=== PATIENT | female | born 1955 | race Caucasian/White ===

== ENCOUNTER 2016-11-10 15:38 | Inpatient (IN) ==
[2016-11-10] MEDS ORDERED: methylPREDNISolone 125 MG/2 ML VIAL IVP ONE (17:52)
[2016-11-10] MEDS ORDERED: *HR* Morphine 2 MG/ML SYRINGE IVP ONE (18:09)
[2016-11-10] MEDS ORDERED: Ondansetron 4 MG/2 ML VIAL IVP ONE (18:09)
--- NOTE | 2016-11-10 18:09 | Emergency Department Note ---
Disposition Clinical Impression: Vasculitis, JONATHAN (acute kidney injury) Abdominal pain Qualifiers: Abdominal location: generalized Qualified Code(s): R10.84 - Generalized abdominal pain Disposition: Still a Patient Condition: Fair Referrals: Brie Ricks DO [Primary Care Provider] - Forms: Work/School Release, ED Satisfaction Letter General Adult HPI - General Chief complaint: ED Abdominal Pain Stated complaint: JONATHAN, vasculitis, "uncontrolled pain" Time Seen by Provider: 11/10/16 17:50 Source: patient Mode of arrival: ambulatory Limitations: no limitations Nursing Notes Reviewed: Yes Vital Signs Reviewed: Yes - History of Present Illness HPI Narrative: 61-year-old female with history of hypertension diabetes presents for evaluation for abdominal pain and, "vasculitis". Patient presented with vasculitic lesions on her lower legs. States it has been present since last . Notes that symptoms have improved since then while being on daily prednisone 20 mg. Patient had a biopsy-proven vasculitis and was following up with Dr. Freeman, nephrology. Patient also had a complaint of abdominal pain over the past week. Notes it to be diffuse primarily in the epigastrium with radiation around to her back. No aggravating or alleviating factors identified. Notes some nausea but no episodes of emesis. No hemoptysis. No shortness of breath or chest pain. No diarrhea or constipation. Patient was sent to the emergency department by Dr. Freeman with strict instructions. Those instructions were relayed to the physician with direct communication. Patient denies history of any autoimmune diseases. No history of vasculitis in the past. She also noted swelling in bilateral arms and lower legs. She states that she still produces urine with no difficulty. Pain Scale: 10 - Related Data Allergies Allergy/AdvReac Type Severity Reaction Status Date / Time aspirin Allergy Nausea Verified 11/10/16 16:16 Sulfa (Sulfonamide Allergy Hives Verified 11/10/16 16:16 Antibiotics) All systems ED: reviewed and negative except as stated. Constitutional: Reports: as per HPI. Denies: fever Eyes: Reports: as per HPI ENT ED: Reports: as per HPI Cardiovascular: Reports: as per HPI. Denies: chest pain Respiratory: Reports: as per HPI. Denies: cough, dyspnea Gastrointestinal: Reports: as per HPI, abdominal pain, nausea. Denies: vomiting , diarrhea, constipation Genitourinary: Reports: as per HPI. Denies: urgency, dysuria Musculoskeletal: Reports: as per HPI Integumentary: Reports: as per HPI Neurological: Reports: as per HPI Psychiatric: Reports: as per HPI Endocrine: Reports: as per HPI Past Medical History - Past Medical History Medical history: Reports: arthritis, asthma, cancer, diabetes, GERD, hyperlipidemia, hypertension Surgical history: Reports: appendectomy, cancer surgery, cholecystectomy, hysterectomy Psychiatric history: Reports: anxiety - Social History Smoking Status: Never smoker Smokeless Tobacco Status: No Alcohol use: Reports: none Drug use: Reports: none Physical Exam - General Limitations: no limitations General appearance: alert, in no apparent distress - Head Head exam: atraumatic, normocephalic, normal inspection - Eye Eye exam: Present: normal appearance, EOMI - ENT ENT exam: normal exam, mucous membranes moist - Neck Neck exam: Present: normal inspection, trachea midline - Chest Chest inspection: Present: normal inspection, symmetric chest wall rise - Respiratory Respiratory exam: Present: normal lung sounds bilaterally. Absent: respiratory distress - Cardiovascular Cardiovascular exam: Present: regular rate, normal rhythm - Abdominal Exam Abdominal exam: Present: soft, tenderness (Mild to moderate tenderness throughout). Absent: guarding, rebound - Neurological Exam Neurological exam: Present: alert, oriented X3 - Skin Skin exam: Present: warm, dry, intact, other (Nonpalpable petechiae of the lower extremities. Extending up to the and including the knees. Faint petechiae on the abdomen. Nonpruritic.) Course Course Narrative: Dr. Freeman recommended basic lab work, CT abdomen and pelvis without contrast, thousand milligrams of Solu-Medrol. And call with the results and disposition. - Reevaluation(s) Reevaluation #1: Patient seen and examined with no issues needed this time. At the time of this dictation the patient will be signed out to the oncoming providers for further management and therapy. Time: 18:35 Vital Signs Temperature 98.8 F 11/10/16 16:13 Pulse Rate 70 11/10/16 16:13 Respiratory Rate 19 11/10/16 16:13 Blood Pressure 188/69 11/10/16 16:13 O2 Sat by Pulse Oximetry 97 11/10/16 16:13 Temperature 98.8 F 11/10/16 16:13 Pulse Rate 69 11/10/16 18:12 Respiratory Rate 16 11/10/16 18:12 Blood Pressure 174/79 11/10/16 18:12 O2 Sat by Pulse Oximetry 95 11/10/16 18:12 Oxygen Delivery Oxygen Delivery Room Air Ruy - Ruy Situation: Demographics Background: Presenting Complaint Assessment: Vital Signs, Course and respsone to treatment, Patient/Family Expectation, Pertinant Lab Results Recommendation: Barrier(s) to disposition, Recommendation based on pending studies, treatments, or consults Ruy Report Given to: Dr. Cullen Redmond Repor Time: 19:00
--- NOTE | 2016-11-10 18:11 | Emergency Department Note ---
START Narrative - START START: I examined this patient and my medical decision-making was reviewed with the BRAIN SURGEON/PA/Advanced Practice Nurse/Resident Physician. I agree with the documented findings, disposition and treatment plan as described except to the extent set forth below. ED attending note: Patient seen with emergency medicine resident Dr. Langley. Please see a copy of his note for details of the H&P, evaluation, management and disposition of this patient. We independently had [id number] contact with the patient Briefly: This 20-year-old female history of protection high blood pressure and started vasculitic lesion on the tibial areas anteriorly of both lower extremities for the past week improving her drosser is Dr. Freeman. Patient is having increasing fatigue and swelling. He wished the patient to come to the ER for blood work to get 1000 mg of IV Solu-Medrol and a noncontrast abdominal pelvic CT. Discussed this with the patient and the family at bedside. I discussed with them that we will going to transition at 1900. The evening care team will consist of Dr. EDWARD, and Dr. Berman reviewed we let them know that they will be transition of care at 1900 p.m. at the eating team will review the results of all the labs and response to the medication and the imaging. We will then contact Dr. Freeman her drosser for further recommendations and plans in her care. Patient and family are comfortable with this. Patient stable. Disposition pending.
[2016-11-10 19:03] LABS: Basophils % 0.1 %; Eosinophils # 0.1 K/mcL (0.0-0.6); Eosinophils % 0.7 %; Hematocrit 39.2 % (35.3-44.9); Hemoglobin 13.6 g/dL (11.5-15.4); Immature Granulocytes % 0.7 % (0-4); Lymphocytes # 0.5 K/mcL (0.6-4.6); Lymphocytes % 5.7 %; Mean Corpuscular HGB Conc 34.7 g/dL (31.6-35.5); Mean Corpuscular Hemoglobin 27.6 pg (28.0-33.3); Mean Corpuscular Volume 79.5 fL (83.0-100.0); Mean Platelet Volume 9.4 fL (9.4-12.4); Monocytes # 0.3 K/mcL (0.0-1.3); Monocytes % 3.4 %; Neutrophils # 8.1 K/mcL (1.6-8.9); Platelet Count 119 K/mcL (140-400); Red Blood Count 4.93 M/mcL (3.82-4.97); Red Cell Distribution Width 13.5 % (11.5-14.5); Segmented Neutrophils % 89.4 %
[2016-11-10 19:16] LABS: Albumin 3.1 g/dL (3.5-5.0); Bilirubin,Direct 0.3 mg/dL (0.0-0.5); Bilirubin,Indirect 0.3 mg/dL (0.0-1.2); Bilirubin,Total 0.6 mg/dL (0.2-1.2); Calcium 7.8 mg/dL (8.6-10.8); Globulin 3.2 g/dL (2.4-3.5); Potassium 4.4 mEq/L (3.5-4.5); Total Protein 6.3 g/dL (6.0-8.3)
--- NOTE | 2016-11-10 19:41 | Emergency Department Note ---
Disposition Clinical Impression: Vasculitis, JONATHAN (acute kidney injury) Abdominal pain Qualifiers: Abdominal location: generalized Qualified Code(s): R10.84 - Generalized abdominal pain Disposition: Admitted As Inpatient Condition: Fair General Adult HPI - General Chief complaint: ED Abdominal Pain Stated complaint: JONATHAN, vasculitis, "uncontrolled pain" Time Seen by Provider: 11/10/16 17:50 Source: patient Mode of arrival: ambulatory Limitations: no limitations - History of Present Illness Pain Scale: 10 - Related Data Home Medications Medication Instructions Recorded Confirmed Albuterol Sulfate [Ventolin Hfa] 2 puff IH Q6H PRN 11/10/16 11/10/16 Amitriptyline [Elavil] 25 mg PO DAILY 11/10/16 11/10/16 Buspirone HCl [Buspar] 15 mg PO DAILY 11/10/16 11/10/16 Carvedilol [Coreg] 25 mg PO BID 11/10/16 11/10/16 Cetirizine HCl [Cetirizine HCl] 10 mg PO DAILY 11/10/16 11/10/16 Fluticasone Propionate Nasal 50 mcg NS DAILY 11/10/16 11/10/16 [Flonase] Hydrochlorothiazide 12.5 mg PO DAILY 11/10/16 11/10/16 Insulin ASPART [Novolog Flexpen] 25 - 35 unit SQ TIDWM 11/10/16 11/10/16 Insulin Glargine,Hum.rec.anlog 40 unit SQ BID 11/10/16 11/10/16 [Lantus Solostar] Levothyroxine [Synthroid] 150 mcg PO DAILY 11/10/16 11/10/16 Losartan Potassium [Cozaar] 50 mg PO DAILY 11/10/16 11/10/16 Metformin [Glucophage] 1,000 mg PO BID 11/10/16 11/10/16 Mometasone/Formoterol [Dulera 200 1 puff IH DAILY 11/10/16 11/10/16 Mcg/5 Mcg Inhaler] Omeprazole [PriLOSEC] 40 mg PO DAILY 11/10/16 11/10/16 PredniSONE [PredniSONE] 20 mg PO DAILY 11/10/16 11/10/16 Rosuvastatin [Crestor] 40 mg PO DAILY 11/10/16 11/10/16 Sertraline [Zoloft] 100 mg PO DAILY 11/10/16 11/10/16 Tiotropium [Spiriva] 18 mcg IH DAILY 11/10/16 11/10/16 Allergies Allergy/AdvReac Type Severity Reaction Status Date / Time aspirin Allergy Hives Verified 11/10/16 21:08 Sulfa (Sulfonamide Allergy Hives Verified 11/10/16 16:16 Antibiotics) Constitutional: Reports: as per HPI. Denies: fever Eyes: Reports: as per HPI ENT ED: Reports: as per HPI Cardiovascular: Reports: as per HPI. Denies: chest pain Respiratory: Reports: as per HPI. Denies: cough, dyspnea Gastrointestinal: Reports: as per HPI, abdominal pain, nausea. Denies: vomiting , diarrhea, constipation Genitourinary: Reports: as per HPI. Denies: urgency, dysuria Musculoskeletal: Reports: as per HPI Integumentary: Reports: as per HPI Neurological: Reports: as per HPI Psychiatric: Reports: as per HPI Endocrine: Reports: as per HPI Past Medical History - Past Medical History Medical history: Reports: arthritis, asthma, cancer, diabetes, GERD, hyperlipidemia, hypertension Surgical history: Reports: appendectomy, cancer surgery, cholecystectomy, hysterectomy Psychiatric history: Reports: anxiety - Social History Smoking Status: Never smoker Smokeless Tobacco Status: No Alcohol use: Reports: none Drug use: Reports: none Physical Exam - General Limitations: no limitations General appearance: alert, in no apparent distress Course - Reevaluation(s) Reevaluation #1: Received patient in signout from Dr. Langley. She is a 61-year-old female with history of rheumatoid arthritis and presents with vasculitis to the bilateral lower extremities as well as right-sided low back pain and use mild abdominal pain that has been going on for the last 12 days or so. The rash to her legs has improved partially with oral steroid administration. She was seen by nephrology today for acute kidney injury and was sent here for evaluation. She has 1 g of Solu-Medrol ordered. Labs recommended by nephrology are resulted and showed stable renal function. CT of abdomen and pelvis is pending. Urinalysis is about to be collected. Patient will be admitted after completion of workup. Time: 19:41 Reevaluation #2: Case discussed with Dr. Freeman with nephrology. He will see patient in consult. Patient accepted to the hospitalist for further management. Vital Signs Temperature 98.8 F 11/10/16 16:13 Pulse Rate 70 11/10/16 16:13 Respiratory Rate 19 11/10/16 16:13 Blood Pressure 188/69 11/10/16 16:13 O2 Sat by Pulse Oximetry 97 11/10/16 16:13 Temperature 97.5 F L 11/11/16 07:07 Pulse Rate 54 11/11/16 07:07 Respiratory Rate 15 11/11/16 07:07 Blood Pressure 158/90 11/11/16 07:07 O2 Sat by Pulse Oximetry 98 11/11/16 07:07 Oxygen Delivery Oxygen Delivery Room Air Medical Decision Making - Lab Data Result diagrams: 11/11/16 05:10 11/11/16 05:10 Lab Results 11/10/16 11/10/16 11/10/16 Range/Units 18:47 18:47 18:47 WBC 9.1 (4.3-11.1) K/mcL RBC 4.93 (3.82-4.97) M/mcL Hgb 13.6 (11.5-15.4) g/dL Hct 39.2 (35.3-44.9) % MCV 79.5 L (83.0-100.0) fL MCH 27.6 L (28.0-33.3) pg MCHC 34.7 (31.6-35.5) g/dL RDW 13.5 (11.5-14.5) % Plt Count 119 L (140-400) K/mcL MPV 9.4 (9.4-12.4) fL Immature Gran % 0.7 (0-4) % Seg Neutrophils % 89.4 % Lymphocytes % 5.7 % Monocytes % 3.4 % Eosinophils % 0.7 % Basophils % 0.1 % Neutrophils # 8.1 (1.6-8.9) K/mcL Lymphocytes # 0.5 L (0.6-4.6) K/mcL Monocytes # 0.3 (0.0-1.3) K/mcL Eosinophils # 0.1 (0.0-0.6) K/mcL Basophils # 0.0 (0.0-0.2) K/mcL PT 11.0 (9.4-12.1) Seconds INR 1.0 APTT 33.6 (26.0-36.0) Seconds Sodium 137 (136-145) mEq/L Potassium 4.4 (3.5-4.5) mEq/L Chloride 107 (98-109) mEq/L Carbon Dioxide 21 (19-29) mEq/L BUN 66 H (7-20) mg/dL Creatinine 2.35 H (0.57-1.11) mg/dL Est GFR ( Amer) 25 L (> 60) Est GFR (Non-Af Amer) 21 L (> 60) BUN/Creatinine Ratio 28 H (6-26) Glucose 173 H (70-99) mg/dL Calculated Osmolality 307 H (280-300) Calcium 7.8 L (8.6-10.8) mg/dL Phosphorus 5.2 H (2.3-4.7) mg/dL Total Bilirubin 0.6 (0.2-1.2) mg/dL Direct Bilirubin 0.3 (0.0-0.5) mg/dL Indirect Bilirubin 0.3 (0.0-1.2) mg/dL AST 14 (5-34) Units/L ALT 16 (0-55) Units/L Alkaline Phosphatase 142 H (38-126) Units/L Serum Total Protein 6.3 (6.0-8.3) g/dL Albumin 3.1 L (3.5-5.0) g/dL Globulin 3.2 (2.4-3.5) g/dL Albumin/Globulin Ratio 1.0 L (1.1-2.2) Amylase 62 (25-125) Units/L Lipase 29 (8-78) Units/L Urine Color (Yellow) Urine Clarity (Clear) Urine pH (5.0-8.0) pH Units Ur Specific [place] (1.010-1.025) Urine Protein (Neg-Trace) mg/dL Urine Glucose (UA) (Normal) mg/dL Urine Ketones (Negative) mg/dL Urine Blood (Negative) Urine Nitrite (Negative) Urine Bilirubin (Negative) Urine Urobilinogen (Normal) mg/dL Ur Leukocyte Esterase (Negative) Urine Microscopic RBC (0-3) per hpf Urine Microscopic WBC (0-3) per hpf Ur Squamous Epith Cells (None-Few) per lpf Urine Bacteria (None-Few) per hpf Hyaline Casts (None-Few) per lpf Ur Culture Indicated? (NO) 05/01/17 Range/Units 19:51 WBC (4.3-11.1) K/mcL RBC (3.82-4.97) M/mcL Hgb (11.5-15.4) g/dL Hct (35.3-44.9) % MCV (83.0-100.0) fL MCH (28.0-33.3) pg MCHC (31.6-35.5) g/dL RDW (11.5-14.5) % Plt Count (140-400) K/mcL MPV (9.4-12.4) fL Immature Gran % (0-4) % Seg Neutrophils % % Lymphocytes % % Monocytes % % Eosinophils % % Basophils % % Neutrophils # (1.6-8.9) K/mcL Lymphocytes # (0.6-4.6) K/mcL Monocytes # (0.0-1.3) K/mcL Eosinophils # (0.0-0.6) K/mcL Basophils # (0.0-0.2) K/mcL PT (9.4-12.1) Seconds INR APTT (26.0-36.0) Seconds Sodium (136-145) mEq/L Potassium (3.5-4.5) mEq/L Chloride (98-109) mEq/L Carbon Dioxide (19-29) mEq/L BUN (7-20) mg/dL Creatinine (0.57-1.11) mg/dL Est GFR ( Amer) (> 60) Est GFR (Non-Af Amer) (> 60) BUN/Creatinine Ratio (6-26) Glucose (70-99) mg/dL Calculated Osmolality (280-300) Calcium (8.6-10.8) mg/dL Phosphorus (2.3-4.7) mg/dL Total Bilirubin (0.2-1.2) mg/dL Direct Bilirubin (0.0-0.5) mg/dL Indirect Bilirubin (0.0-1.2) mg/dL AST (5-34) Units/L ALT (0-55) Units/L Alkaline Phosphatase (38-126) Units/L Serum Total Protein (6.0-8.3) g/dL Albumin (3.5-5.0) g/dL Globulin (2.4-3.5) g/dL Albumin/Globulin Ratio (1.1-2.2) Amylase (25-125) Units/L Lipase (8-78) Units/L Urine Color Yellow (Yellow) Urine Clarity Cloudy A (Clear) Urine pH 5.5 (5.0-8.0) pH Units Ur Specific [place] 1.022 (1.010-1.025) Urine Protein >=300 H (Neg-Trace) mg/dL Urine Glucose (UA) Normal (Normal) mg/dL Urine Ketones Negative (Negative) mg/dL Urine Blood Large H (Negative) Urine Nitrite Negative (Negative) Urine Bilirubin Small H (Negative) Urine Urobilinogen Normal (Normal) mg/dL Ur Leukocyte Esterase Large H (Negative) Urine Microscopic RBC 5-15 H (0-3) per hpf Urine Microscopic WBC 15-30 H (0-3) per hpf Ur Squamous Epith Cells Few (None-Few) per lpf Urine Bacteria Few (None-Few) per hpf Hyaline Casts Few (None-Few) per lpf Ur Culture Indicated? YES A (NO) Attestation Statement - Attestation Attestation: I, Silvino Fabian, examined this patient and my medical decision-making was reviewed with the RESTAURANT CULINARY MANAGER/PA/Advanced Practice Nurse/Resident Physician. I agree with the documented findings, disposition and treatment plan as described except to the extent set forth below. Cc 1-year-old female received in sign out upon the second of my shift pending CT , labs, IV fluids and Solu-Medrol. Patient was recently seen by dermatology with a skin biopsy which is concerning for vasculitis. Patient has petechiae in the bilateral lower extremities. Patient saw her cosmetics and toiletries salesperson earlier today was concerned about possible infection versus worsening inflammation of the kidneys. Patient has acute kidney injury on labs today in the emergency department. Patient was given a gram of Solu-Medrol per recommendations from Dr. Freeman. He also recommended the patient be admitted to the hospital for further care and evaluation of likely vasculitis with acute renal insufficiency.
[2016-11-10 20:39] LABS: Bilirubin,Urine Small (Negative); Blood,Urine Large (Negative); Clarity,Urine Cloudy (Clear); Color,Urine Yellow (Yellow); Glucose,Urine (UA) Normal (Normal); Ketones,Urine Negative (Negative); Leukocyte Esterase,Urine Large (Negative); Nitrite,Urine Negative (Negative); PH,Urine 5.5 pH Units (5.0-8.0); Protein,Urine >=300 mg/dL (Neg-Trace); Specific Gravity,Urine 1.022 (1.010-1.025); Urobilinogen,Urine Normal (Normal)
[2016-11-10 20:45] LABS: Bacteria,Urine Few per hpf (None-Few); Hyaline Casts,Urine Few per lpf (None-Few); Squamous Epithelial Cell,Urine Few per lpf (None-Few); WBC,Urine 15-30 per hpf (0-3)
[2016-11-10 21:22] LABS: Activated Partial Thrombo Time 33.6 Seconds (26.0-36.0)
--- NOTE | 2016-11-10 21:58 | Internal Med History&Physical ---
Date of Encounter: 11/10/16 Time of Encounter: 23:00 Assessment and Plan (1) Acute generalized abdominal pain Current visit: Yes Status: Acute . (2) Adynamic ileus Current visit: Yes Status: Acute . (3) Acute kidney injury superimposed on chronic kidney disease Current visit: Yes Status: Acute . (4) Nephropathy Current visit: Yes Status: Acute . (5) Type 2 diabetes mellitus Current visit: Yes Status: Acute . 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 Internal Medicine - H&P: HPI Chief complaint: Abdominal pain Admitted From: Emergency Dept Plans for Post Hospital Care: Home History of present illness: Ms. Haddad is a 61 year old female with history significant for OA/OP/chr MSK pain, fibromyalgia, irritable bowel synd, HTN, HLD, type II DM, RAD/asthma, COPD /TREASURE, GERD/HH/PUD/, hepatic steatosis, diverticulosis coli/rec diverticulitiis /H/O c diff colitis, H/O thyroid Ca s/p excision, depression/anxiety, morbid obesity, former smoker, etc.. 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 Patient presents with complaints of uncontrolled, intractable abdominal pain and recent diagnosis of inflammatory vasculitis. The patient had vasculitic lesions on her lower extremities present approximately 5-7 days. Symptoms seem to improve following initiation of oral prednisone therapy at 20 mg daily. A biopsy had been obtained of these lesions which was consistent with a "vasculitis" and nephrology follow-up was planned. However the patient began to experience intractable abdominal pain over the last 5-7 days beginning her to the emergency room for evaluation. Primarily epigastric with radiation into her back. No specific aggravating or alleviating factors identified. Pain when most severe rated at 10/10. Reports nauseation and no episodes of emesis. Denied any evidence of any bleeding events disease hemoptysis epistaxis coffee-ground emesis melena or bright red blood per rectum hematuria etc.). Denies any shortness of breath. Denied chest pain. Denied diarrhea. Denied constipation. She denied any upper or lower respiratory complaints. She has noticed increasing swelling of both arms and legs in recent weeks. He acknowledges easy fatigability and generalized malaise. Patient is not aware of any autoimmune diseases that she possesses. No prior history of vasculitis being diagnosed. Findings in the ED: Temperature 98.8 pulse 70 respiration was 16-19 BP 174-188/69-79. O2 saturation by pulse oximetry 95-97% room air. WBC 9.1 hemoglobin 13.6 platelets 119,000. MCV 79.5 MCH 27.6. Differential normal. Comprehensive metabolic panel normal except BUN 66 creatinine 2.35. GFR 21. Glucose 173 osmolality 307. Calcium 7.8. Alkaline phosphatase 142. Albumin 3.1 total protein 6.3. Amylase 62 lipase 29. PT 11 INR 1.0 PTT 33.6. Urinalysis demonstrated large protein. Large blood. Small bilirubin. Large leukocyte esterase. 15 RBC. 30 WBC. Few epithelial squamous cells. Few bacteria. Few hyalin casts CT abdomen and pelvis without contrast demonstrated mild dilated loops of proximal small bowel. Findings favor ileus. Hepatic steatosis. No evidence for obstruction. Colonic diverticulosis without diverticulitis. Status post hysterectomy. Status post cholecystectomy. No significant pelvic adenopathy or free fluid. No significant retroperitoneal or mesenteric adenopathy. No ascites or drainable fluid collection. No findings of the bones or soft tissues. Preliminary impressions suggest acute kidney injury on chronic kidney disease stage IV. This finding in the setting of apparent large- volume proteinuria with suggestion of secondary nephrotic syndrome with peripheral edema/anasarca. Acute abdominal pain complaints suggest adynamic ileus versus ischemic bowel secondary to vascular disease. There is no evidence radiographically of acute obstruction. Studies suggest a degree of urinary sediment consistent with mild UTI. The patient presents risk for acute clinical decline and morbidity given his presenting said symptoms findings and comorbidities. Workup and treatment proceed comprehensively. The patient was visited and interviewed and examined. Cumulative laboratory and radiographic data base will be considered and discussed. Pertinent ancillary medical records including ECW and PCI documentation when available was reviewed and considered. Given the patient's presenting concerns, past medical history, clinical findings and symptoms, she is admitted at this time will undergo further evaluation and disposition. Orders were written as per the computerized physician enrobing machine corder system.......................................................................... .................... Consultative opinions will be sought as clinical circumstances justify. Initial consultative opinion requested of nephrology. Nephrology recommendation to proceed with renal biopsy. Pain management needs will be addressed. Laboratory+radiographic data base will be updated as appropriate. Studies include: Cultures of blood urine sputum, RF, MIGUEL, ACNA, pt/inr, aptt, ddimer, UA , UDS, urine assays, cardiac injury panel, BNP, metabolic and hematologic panel , magnesium, phosphorus, ionized calcium, thyroid panel, lipid profile, A1c, C- peptide, CRP sedimentation rate, respiratory virus panel, blood gas, lactic acid , serologies, etc. Precautions: Aspiration, fall, delirium protocol/surveillance initiated. Orthostatic vital signs. Telemetry with continuous hemodynamic monitoring and pulse oximetry initiated. Empiric antibiotic coverage: Intravenous Rocephin pending culture data. Special studies: CT abd-pelvis, US retroperitoneum, chest x-ray, telemetry, EKG. Pulmonary toilet: Incentive spirometry, aerosol bronchodilator, mucolytic, antitussive, supplemental oxygen. Corticosteroid therapy. CPAP/BiPAP supplemental oxygen delivery. Aerosol Mucomyst therapy. Fluid and electrolyte repletion efforts will proceed. Careful attention to fluid balance and renal recovery will be emphasized. Avoidance of nephrotoxic exposure and adverse drug drug interaction in the setting of impaired renal function will be monitored closely. Acute coronary syndrome protocol/surveillance initiated. DVT and PUD prophylaxis initiated: PPI therapy, intermittent pneumatic cuffs/ TEDs. Subcutaneous heparin/Lovenox. Early ambulation will be encouraged. Immunization updates recommended. Influenza and pneumococcal vaccinations as part of ongoing preventative healthcare recommendations strongly recommended. Smoking cessation counseling briefly addressed. Patient is a former smoker. Advanced care directive discussion briefly addressed. Patient does not declare any healthcare restrictions at this time. Cardiovascular risk appraisal and cardiovascular risk reduction efforts will be emphasized. Physical+occupational therapy consulted to evaluate patient's functional capacity and progress mobility as her circumstances justify. Sliding scale insulin coverage, ADA-RENAL dietary restraint and schedule an as- needed basis fingerstick glucose assessments were initiated. Nutrition/ diabetes education counseling may be considered as circumstances justify. Outpatient medication schedules will be reviewed, confirmed and facilitated as appropriate. Reconciliation of home treatments including adjustments, substitutions and reintroduction into the treatment regimen will address necessary maintenance therapies for chronic pre-existing medical conditions. Plan of care has been reviewed and discussed in detail with the patient. Questions addressed. Hospital course dictated by clinical findings, treatment response and potential consultative interventions. Patient is at risk for further acute clinical decline and morbidity due to her presenting chief complaints, findings and comorbid conditions. Condition is serious. Prognosis is guarded. CODE STATUS is full. Past Med Surg Social Fam HX - Past Medical History Source: old records reviewed Medical history: arthritis, asthma, cancer (Thyroid cancer.), COPD (Obstructive sleep apnea.), diabetes (DM peripheral neuropathy. Bilateral cataracts.), fibromyalgia, GERD, GI bleed (History of C. difficile colitis. History of gastric ulcer.), hyperlipidemia, hypertension, migraine, osteoporosis (Vitamin D deficiency.), RA, renal disease, thyroid disease (Nontoxic nodular goiter. Hypothyroidism.), other (Chronic rhinitis/sinusitis. Chronic musculoskeletal pain/low back pain.) Psychiatric history: anxiety, depression, other - Past Surgical History Surgical History: appendectomy, cancer surgery (Status post thyroidectomy for cancer.), cholecystectomy, hysterectomy, other (Colonoscopy.) - Social History Smoking Status: Former smoker Smokeless Tobacco Status: No Alcohol use: none Drug use: none Occupational status: unemployed Current living situation: Home - Independent, Home Activity Level: Independent ambulation, Mostly sedentary Recent Out of Country Travel Within the Last 8 Weeks: No Exposure or Possible Exposure to Illness During Travel: No Internal Medicine - H&P: Meds Albuterol Sulfate [Ventolin Hfa] 2 puff IH Q6H PRN 11/10/16 [History] Amitriptyline [Elavil] 25 mg PO DAILY 11/10/16 [History] Buspirone HCl [Buspar] 15 mg PO DAILY 11/10/16 [History] Carvedilol [Coreg] 25 mg PO BID 11/10/16 [History] Cetirizine HCl [Cetirizine HCl] 10 mg PO DAILY 11/10/16 [History] Fluticasone Propionate Nasal [Flonase] 50 mcg NS DAILY 11/10/16 [History] Hydrochlorothiazide 12.5 mg PO DAILY 11/10/16 [History] Insulin ASPART [Novolog Flexpen] 25 - 35 unit SQ TIDWM 11/10/16 [History] Insulin Glargine,Hum.rec.anlog [Lantus Solostar] 40 unit SQ BID 11/10/16 [ History] Levothyroxine [Synthroid] 150 mcg PO DAILY 11/10/16 [History] Losartan Potassium [Cozaar] 50 mg PO DAILY 11/10/16 [History] Metformin [Glucophage] 1,000 mg PO BID 11/10/16 [History] Mometasone/Formoterol [Dulera 200 Mcg/5 Mcg Inhaler] 1 puff IH DAILY 11/10/16 [ History] Omeprazole [PriLOSEC] 40 mg PO DAILY 11/10/16 [History] PredniSONE [PredniSONE] 20 mg PO DAILY 11/10/16 [History] Rosuvastatin [Crestor] 40 mg PO DAILY 11/10/16 [History] Sertraline [Zoloft] 100 mg PO DAILY 11/10/16 [History] Tiotropium [Spiriva] 18 mcg IH DAILY 11/10/16 [History] Allergies aspirin Allergy (Verified 11/10/16 21:08) Hives Sulfa (Sulfonamide Antibiotics) Allergy (Verified 11/10/16 16:16) Hives All Systems PM: A 10-system review of systems was performed and is negative for pertinent findings except as documented above in the HPI. - Constitutional Constitutional: anorexia, malaise, no chills, no fever(s), no night sweats - EENT Eyes: as per HPI, no change in vision, no discharge, no pain, no photophobia Ears: as per HPI, no ear discharge, no ear pain, no tinnitus Nose, mouth and throat: as per HPI, no dysphagia, no nasal discharge, no neck pain, no sore throat - Cardiovascular Cardiovascular ROS IM: as per HPI, no chest pain, no diaphoresis, no dyspnea, no lightheadedness, no palpitations, no syncope - Respiratory Respiratory: as per HPI, no cough, no dyspnea, no wheezing, no excessive phlegm production - Gastrointestinal Gastrointestinal: as per HPI, abdominal pain, bloating, cramping, nausea, no change in bowel habits, no constipation, no diarrhea, no hematemesis, no hematochezia, no melena, no vomiting - Genitourinary Genitourinary: abnormal menses, no change in urinary stream, no dysuria, no flank pain, no hematuria Menstruation: as per HPI, post hysterectomy - Musculoskeletal Musculoskeletal ROS IM: as per HPI, arthralgias, back pain, myalgias, no numbness, no tingling - Integumentary Integumentary IM: as per HPI, other, no rash, no unusual bruising - Neurological Neurological ROS: as per HPI, no confusion, no convulsions, no focal weakness, no numbness, no tingling, no tremor(s) - Psychiatric Psychiatric: as per HPI - Endocrine Endocrine IM: as per HPI - Hematologic/Lymphatic Hematologic/Lymphatic: as per HPI, other, no easy bruising - Allergic/Immunologic Allergic/Immunologic: as per HPI - Constitutional Vitals: Temp Pulse Resp BP Pulse Ox 98.8 F 70 16 134/97 97 11/10/16 16:13 11/10/16 21:42 11/10/16 21:42 11/10/16 21:42 11/10/16 21:42 Vital Signs Temp Pulse Resp BP Pulse Ox 11/10/16 21:42 70 16 134/97 97 11/10/16 21:00 73 16 165/84 96 11/10/16 19:52 72 18 191/78 96 11/10/16 18:12 69 16 174/79 95 11/10/16 16:13 98.8 F 70 19 188/69 97 Intake and Output 11/10/16 11/10/16 11/10/16 07:59 15:59 23:59 Intake Total 100 / 100 Balance 100 / 100 Intake: IV Fluids 100 / 100 Solu-MEDROL 1,000 MG In 0 100 / 100 .9 % Sodium Chloride 100 ML @ 216 mls/hr IVPB ONCE ONE Rx#:[id number] Other: Stool Characteristics Foamy Stool Color Brown Weight 101.605 kg Patient Weight 11/10/16 23:59 Weight 101.605 kg General appearance: Present: cooperative, mild distress, A&O X 3, morbidly obese , answers questions appropriately - Head Head exam: Present: atraumatic, normal inspection, normocephalic - Eye Eye exam: Present: EOMI, PERRL, conjuntiva pink, sclera anicteric Pupils: Present: normal accommodation, PERRL - ENT ENT exam: Present: mucous membranes moist, normal external ear exam, normal oropharynx - Neck Neck exam general surgery: Present: full ROM, supple, trachea midline. Absent: lymphadenopathy, nuchal rigidity - Respiratory Respiratory exam: Present: chest wall tenderness, decreased breath sounds, CTAB. Absent: accessory muscle use, rales, rhonchi, stridor, wheezes - Cardiovascular Cardiovascular exam: Present: distant heart sounds, RRR, +S1, +S2. Absent: diastolic murmur, gallop, rubs, systolic murmur - GI/Abdominal GI/Abdominal exam: Present: distended, normal bowel sounds, soft, tenderness, no peritoneal signs. Absent: mass - Extremities Exam Extremities exam: Present: warm, radial pulses palpable and symetrical. Absent : calf tenderness, cyanotic, pedal edema - Neurological Exam Neurological exam: Present: alert, CN II-XII intact, oriented X3, no focal deficits. Absent: pronater drift, facial droop, speech deficit - Psychiatric Psychiatric exam: Present: normal affect, normal mood - Skin Skin exam: Present: dry, intact, petechiae, warm. Absent: rash, urticaria, vesicles Internal Med - H&P Results - Labs CBC & Chem 7: 11/10/16 18:47 11/10/16 18:47 Labs: Short CBC 11/10/16 Range/Units 18:47 WBC 9.1 (4.3-11.1) K/mcL Hgb 13.6 (11.5-15.4) g/dL Hct 39.2 (35.3-44.9) % Plt Count 119 L (140-400) K/mcL Neutrophils # 8.1 (1.6-8.9) K/mcL BMP 11/10/16 18:47 Sodium 137 Potassium 4.4 Chloride 107 Carbon Dioxide 21 BUN 66 H Creatinine 2.35 H Glucose 173 H Calcium 7.8 L Liver Function 11/10/16 Range/Units 18:47 Total Bilirubin 0.6 (0.2-1.2) mg/dL Direct Bilirubin 0.3 (0.0-0.5) mg/dL AST 14 (5-34) Units/L ALT 16 (0-55) Units/L Alkaline Phosphatase 142 H (38-126) Units/L Albumin 3.1 L (3.5-5.0) g/dL Urine 11/10/16 Range/Units 19:51 Urine Color Yellow (Yellow) Urine Clarity Cloudy A (Clear) Urine pH 5.5 (5.0-8.0) pH Units Ur Specific Divide 1.022 (1.010-1.025) Urine Protein >=300 H (Neg-Trace) mg/dL Urine Glucose (UA) Normal (Normal) mg/dL Abnormal lab results MCV 79.5 fL (83.0-100.0) L 11/10/16 18:47 MCH 27.6 pg (28.0-33.3) L 11/10/16 18:47 Plt Count 119 K/mcL (140-400) L 11/10/16 18:47 Lymphocytes # 0.5 K/mcL (0.6-4.6) L 11/10/16 18:47 BUN 66 mg/dL (7-20) H 11/10/16 18:47 Creatinine 2.35 mg/dL (0.57-1.11) H 11/10/16 18:47 Est GFR ( Amer) 25 (> 60) L 11/10/16 18:47 Est GFR (Non-Af Amer) 21 (> 60) L 11/10/16 18:47 BUN/Creatinine Ratio 28 (6-26) H 11/10/16 18:47 Glucose 173 mg/dL (70-99) H 11/10/16 18:47 Calculated Osmolality 307 (280-300) H 11/10/16 18:47 Calcium 7.8 mg/dL (8.6-10.8) L 11/10/16 18:47 Alkaline Phosphatase 142 Units/L (38-126) H 11/10/16 18:47 Albumin 3.1 g/dL (3.5-5.0) L 11/10/16 18:47 Albumin/Globulin Ratio 1.0 (1.1-2.2) L 11/10/16 18:47 Urine Clarity Cloudy (Clear) A 11/10/16 19:51 Urine Protein >=300 mg/dL (Neg-Trace) H 11/10/16 19:51 Urine Blood Large (Negative) H 11/10/16 19:51 Urine Bilirubin Small (Negative) H 11/10/16 19:51 Ur Leukocyte Esterase Large (Negative) H 11/10/16 19:51 Urine Microscopic RBC 5-15 per hpf (0-3) H 11/10/16 19:51 Urine Microscopic WBC 15-30 per hpf (0-3) H 11/10/16 19:51 Ur Culture Indicated? YES (NO) A 11/10/16 19:51 Laboratory Results WBC 9.1 K/mcL (4.3-11.1) 11/10/16 18:47 RBC 4.93 M/mcL (3.82-4.97) 11/10/16 18:47 Hgb 13.6 g/dL (11.5-15.4) 11/10/16 18:47 Hct 39.2 % (35.3-44.9) 11/10/16 18:47 MCV 79.5 fL (83.0-100.0) L 11/10/16 18:47 MCH 27.6 pg (28.0-33.3) L 11/10/16 18:47 MCHC 34.7 g/dL (31.6-35.5) 11/10/16 18:47 RDW 13.5 % (11.5-14.5) 11/10/16 18:47 Plt Count 119 K/mcL (140-400) L 11/10/16 18:47 MPV 9.4 fL (9.4-12.4) 11/10/16 18:47 Immature Gran % 0.7 % (0-4) 11/10/16 18:47 Seg Neutrophils % 89.4 % 11/10/16 18:47 Lymphocytes % 5.7 % 11/10/16 18:47 Monocytes % 3.4 % 11/10/16 18:47 Eosinophils % 0.7 % 11/10/16 18:47 Basophils % 0.1 % 11/10/16 18:47 Neutrophils # 8.1 K/mcL (1.6-8.9) 11/10/16 18:47 Lymphocytes # 0.5 K/mcL (0.6-4.6) L 11/10/16 18:47 Monocytes # 0.3 K/mcL (0.0-1.3) 11/10/16 18:47 Eosinophils # 0.1 K/mcL (0.0-0.6) 11/10/16 18:47 Basophils # 0.0 K/mcL (0.0-0.2) 11/10/16 18:47 PT 11.0 Seconds (9.4-12.1) 11/10/16 18:47 INR 1.0 11/10/16 18:47 APTT 33.6 Seconds (26.0-36.0) 11/10/16 18:47 Sodium 137 mEq/L (136-145) 11/10/16 18:47 Potassium 4.4 mEq/L (3.5-4.5) 11/10/16 18:47 Chloride 107 mEq/L (98-109) 11/10/16 18:47 Carbon Dioxide 21 mEq/L (19-29) 11/10/16 18:47 BUN 66 mg/dL (7-20) H 11/10/16 18:47 Creatinine 2.35 mg/dL (0.57-1.11) H 11/10/16 18:47 Est GFR ( Amer) 25 (> 60) L 11/10/16 18:47 Est GFR (Non-Af Amer) 21 (> 60) L 11/10/16 18:47 BUN/Creatinine Ratio 28 (6-26) H 11/10/16 18:47 Glucose 173 mg/dL (70-99) H 11/10/16 18:47 Calculated Osmolality 307 (280-300) H 11/10/16 18:47 Calcium 7.8 mg/dL (8.6-10.8) L 11/10/16 18:47 Total Bilirubin 0.6 mg/dL (0.2-1.2) 11/10/16 18:47 Direct Bilirubin 0.3 mg/dL (0.0-0.5) 11/10/16 18:47 Indirect Bilirubin 0.3 mg/dL (0.0-1.2) 11/10/16 18:47 AST 14 Units/L (5-34) 11/10/16 18:47 ALT 16 Units/L (0-55) 11/10/16 18:47 Alkaline Phosphatase 142 Units/L (38-126) H 11/10/16 18:47 Serum Total Protein 6.3 g/dL (6.0-8.3) 11/10/16 18:47 Albumin 3.1 g/dL (3.5-5.0) L 11/10/16 18:47 Globulin 3.2 g/dL (2.4-3.5) 11/10/16 18:47 Albumin/Globulin Ratio 1.0 (1.1-2.2) L 11/10/16 18:47 Amylase 62 Units/L (25-125) 11/10/16 18:47 Lipase 29 Units/L (8-78) 11/10/16 18:47 Urine Color Yellow (Yellow) 11/10/16 19:51 Urine Clarity Cloudy (Clear) A 11/10/16 19:51 Urine pH 5.5 pH Units (5.0-8.0) 11/10/16 19:51 Ur Specific Divide 1.022 (1.010-1.025) 11/10/16 19:51 Urine Protein >=300 mg/dL (Neg-Trace) H 11/10/16 19:51 Urine Glucose (UA) Normal mg/dL (Normal) 11/10/16 19:51 Urine Ketones Negative mg/dL (Negative) 11/10/16 19:51 Urine Blood Large (Negative) H 11/10/16 19:51 Urine Nitrite Negative (Negative) 11/10/16 19:51 Urine Bilirubin Small (Negative) H 11/10/16 19:51 Urine Urobilinogen Normal mg/dL (Normal) 11/10/16 19:51 Ur Leukocyte Esterase Large (Negative) H 11/10/16 19:51 Urine Microscopic RBC 5-15 per hpf (0-3) H 11/10/16 19:51 Urine Microscopic WBC 15-30 per hpf (0-3) H 11/10/16 19:51 Ur Squamous Epith Cells Few per lpf (None-Few) 11/10/16 19:51 Urine Bacteria Few per hpf (None-Few) 11/10/16 19:51 Hyaline Casts Few per lpf (None-Few) 11/10/16 19:51 Ur Culture Indicated? YES (NO) A 11/10/16 19:51 Impressions Abdomen/Pelvis CT 11/10/16 17:52 IMPRESSION: 1. Mildly dilated loops of proximal small bowel which tapers to normal caliber without discrete transition point. Findings favor ileus. 2. Hepatic steatosis. 3. No other acute abdominal or pelvic abnormality on this unenhanced study. D/ /10/2016 19:47:29 Estella Coy MD / June Butts Interpreting Provider: Estella Coy MD - Impressions ITS Impressions Abdomen/Pelvis CT 11/10/16 17:52
[2016-11-10] MEDS ORDERED: *HR* Promethazine 25 MG/ML VIAL IVP PRN (22:32)
[2016-11-10] MEDS ORDERED: Naloxone 0.4 MG/ML INJ IVP PRN (22:32)
[2016-11-10] MEDS ORDERED: Dextrose Gel 15 GM PO PRN ×2 (22:45)
[2016-11-10] MEDS ORDERED: Insulin DETEMIR 100 UNIT/ML X5UNITS SQ SCH (22:45)
[2016-11-10] MEDS ORDERED: Insulin LISPRO 300 UNITS/3 ML VIAL SQ SCH (22:45)
[2016-11-10] MEDS ORDERED: *HR* Dextrose 50 % in Water (Syg) 50 ML SYRINGE IVP PRN (22:45)
[2016-11-10] MEDS ORDERED: D5% in Water 1,000 ML IVC PRN (22:45)
[2016-11-10 22:52] LABS: Phosphorous 5.2 mg/dL (2.3-4.7)
[2016-11-10 23:13] LABS: VBG HCO3 20.2 mEq/L (21-27); VBG PH 7.37 pH Units (7.32-7.42)
[2016-11-10] MEDS ORDERED: Promethazine 12.5 MG in 0.9 % Sodium Chloride 50 ML IVPB PRN (23:18)
[2016-11-10 23:29] LABS: Rheumatoid Factor < 15 IU/mL (0-29)
[2016-11-11] MEDS: 0.9 % Sodium Chloride 1,000 ML IVC SCH ×2 (00:10→14:32)
[2016-11-11] MEDS: Pantoprazole 40 MG VIAL IVP SCH ×3 (00:11→22:05)
[2016-11-11] MEDS: *HR* OxyCODONE Immed Rel 5 MG TABLET PO PRN ×3 (00:11→22:05)
[2016-11-11] MEDS: Acetaminophen 325 MG TABLET PO PRN (03:41)
[2016-11-11 04:08] LABS: Amphetamine Screen,Urine Negative ng/mL (Cutoff=1000); Barbiturate Screen,Urine Negative ng/mL (Cutoff=200); Benzodiazepines Screen,Urine Negative ng/mL (Cutoff=200); Cannabinoid Screen,Urine Negative ng/mL (Cutoff = 50); Cocaine Screen,Urine Negative ng/mL (Cutoff= 300); Opiate Screen,Urine Positive ng/mL (Cutoff=300); Phencyclidine Screen,Urine Negative ng/mL (Cutoff=25)
[2016-11-11] MEDS: Ipratropium/Albuterol Neb 3 ML IH SCH ×4 (04:57→21:54)
[2016-11-11 05:23] LABS: Hemoglobin 12.2 g/dL (11.5-15.4); Mean Corpuscular HGB Conc 35.9 g/dL (31.6-35.5); Mean Corpuscular Hemoglobin 28.4 pg (28.0-33.3); Mean Corpuscular Volume 79.3 fL (83.0-100.0); Mean Platelet Volume 9.9 fL (9.4-12.4); Platelet Count 115 K/mcL (140-400); Red Blood Count 4.29 M/mcL (3.82-4.97); Red Cell Distribution Width 12.9 % (11.5-14.5)
[2016-11-11 05:33] LABS: % Iron Saturation 12 % (15-50); C-Reactive Protein 50 mg/L (Less than 5); Iron 32 mcg/dL (50-170); Transferrin 193 mg/dL (180-382)
[2016-11-11 05:34] LABS: Calcium 7.3 mg/dL (8.6-10.8); Chol/HDL Ratio 2.5 (0-4.9); Magnesium 2.7 mg/dL (1.6-2.6)
[2016-11-11 05:35] LABS: Hemoglobin A1C 8.4 %
[2016-11-11 06:18] LABS: Potassium 5.4 mEq/L (3.5-4.5)
[2016-11-11] MEDS: Loratadine 10 MG TABLET PO SCH (07:58)
[2016-11-11] MEDS: Fluticasone Propionate Nasal 50 MCG/SPRAY BOTTLE NS SCH (07:59)
[2016-11-11] MEDS: Insulin LISPRO 300 UNITS/3 ML VIAL SQ SCH ×6 (08:11→17:15)
[2016-11-11] MEDS ORDERED: Tiotropium 18 MCG inhalation IH SCH (09:00)
[2016-11-11 10:33] LABS: Calcium 7.3 mg/dL (8.6-10.8)
--- NOTE | 2016-11-11 10:48 | Nephrology Consult Note ---
Date of Encounter: 11/11/16 Time of Encounter: 10:35 Assessment and Plan (1) Henoch-Schonlein purpura Current Visit: Yes Status: Acute Recent onset of vasculitis, biopsy revealed IgA vasculitis; in addition to JONATHAN Work up thus far has revealed Negative RF, CCP, MPO, PR3, Cryoglobulins. Normal C3 and C4 levels. Hepatitis C screen from 09/05/16 was negative. GFR prior to 11/03/16 was > 60. Today her Scr is 2.96. Large blood in UA. Receive one gram of solumedrol last night in the ED, plan to continue 1 gram for the next 3 days. Right renal biopsy completed today. If renal function continues to decline may need plasmapharesis. Strict I's and O's Avoid nephrotoxins (2) Henoch-Schonlein purpura nephritis Current Visit: Yes Status: Suspected See plan above. (3) JONATHAN (acute kidney injury) Current Visit: Yes Status: Acute See plan above. (4) Hyperkalemia Current Visit: Yes Status: Acute K+ 4.4 > 5.4 > 5.0 Will closely monitor. (5) Hypermagnesemia Current Visit: Yes Status: Acute Magnesium 2.7 Recheck tomorrow. Replace as needed. (6) Obesity (BMI 30-39.9) Current Visit: Yes Status: Acute (7) Type 2 diabetes mellitus Current Visit: Yes Status: Acute Management per primary medicine service. 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 Haddad is a 61 y.o. female who has had 2-3 months of polyarthralgias (told she may have RA)with development of bilateral lower extremity rash two weeks ago. She was given steroids as an outpatient but states this made minimal difference. She admits to diffuse ,cramping, upper abdominal that radiates around both sides to her back. She does admit to having some blood in her stool approximately a week ago, with history of hemorrhoids; she denies any stools changes since. She denies any recent upper respiratory illness. She denies sick contacts. She denies history of blood transfusion and has never used IV drugs. She has no further complaints or concerns at this time. Denies any history of kidney issues. Notes maternal aunt had history of unknown kidney issues and that she is since . Concern for vasculitis, skin biopsy taken this week. Nephrology consulted with findings of JONATHAN with acute worsening creatinine , concern for systemic vasculitis vs HSP. Past Med Surg Social Fam HX - Past Medical History Attestation: Yes The following information was validated with the patient. Source: patient, old records reviewed, nursing notes reviewed Medical history: arthritis, asthma, cancer, diabetes, GERD, hyperlipidemia, hypertension Psychiatric history: anxiety - Past Surgical History Surgical History: appendectomy, cancer surgery, cholecystectomy, hysterectomy - Social History Smoking Status: Never smoker Smokeless Tobacco Status: No Alcohol use: none Drug use: none Medications and Allergies Albuterol Sulfate [Ventolin Hfa] 2 puff IH Q6H PRN 11/10/16 [History] Amitriptyline [Elavil] 25 mg PO DAILY 11/10/16 [History] Buspirone HCl [Buspar] 15 mg PO DAILY 11/10/16 [History] Carvedilol [Coreg] 25 mg PO BID 11/10/16 [History] Cetirizine HCl [Cetirizine HCl] 10 mg PO DAILY 11/10/16 [History] Fluticasone Propionate Nasal [Flonase] 50 mcg NS DAILY 11/10/16 [History] Hydrochlorothiazide 12.5 mg PO DAILY 11/10/16 [History] Insulin ASPART [Novolog Flexpen] 25 - 35 unit SQ TIDWM 11/10/16 [History] Insulin Glargine,Hum.rec.anlog [Lantus Solostar] 40 unit SQ BID 11/10/16 [ History] Levothyroxine [Synthroid] 150 mcg PO DAILY 11/10/16 [History] Losartan Potassium [Cozaar] 50 mg PO DAILY 11/10/16 [History] Metformin [Glucophage] 1,000 mg PO BID 11/10/16 [History] Mometasone/Formoterol [Dulera 200 Mcg/5 Mcg Inhaler] 1 puff IH DAILY 11/10/16 [ History] Omeprazole [PriLOSEC] 40 mg PO DAILY 11/10/16 [History] PredniSONE [PredniSONE] 20 mg PO DAILY 11/10/16 [History] Rosuvastatin [Crestor] 40 mg PO DAILY 11/10/16 [History] Sertraline [Zoloft] 100 mg PO DAILY 11/10/16 [History] Tiotropium [Spiriva] 18 mcg IH DAILY 11/10/16 [History] Allergies aspirin Allergy (Verified 11/10/16 21:08) Hives Sulfa (Sulfonamide Antibiotics) Allergy (Verified 11/10/16 16:16) Hives Review of Systems Constitutional: no chills, no fever(s) Nose, mouth and throat: no dysphagia, no nasal congestion Cardiovascular: edema, no chest pain, no syncope Respiratory: dyspnea, no chest congestion Gastrointestinal: abdominal pain, hematochezia, nausea, no hematemesis, no vomiting Genitourinary Female: flank pain, no dysuria Musculoskeletal: arthralgias, back pain Integumentary: rash, no pruritus Exam - Vital Signs Vital signs: Initial Vital Signs Temp Pulse Resp BP Pulse Ox 98.8 F 70 19 188/69 97 11/10/16 16:13 11/10/16 16:13 11/10/16 16:13 11/10/16 16:13 11/10/16 16:13 Vital Signs - Last 8 Hours Temp Pulse Resp BP Pulse Ox 11/11/16 08:15 98 11/11/16 07:07 97.5 F L 54 15 158/90 98 11/11/16 03:15 97.7 F 53 20 125/49 94 Intake and Output 11/10/16 11/11/16 11/11/16 23:59 07:59 15:59 Intake Total 100 / 100 120 / 120 Output Total 300 / 300 Balance -200 / -200 120 / 120 Intake: IV Fluids 100 / 100 Rocephin 1,000 MG In 100 / 100 Dextrose 5% (Minibag+) 100 ML 100 ML @ 200 mls/ hr IVPB Q24H [facility] Rx#: [id number] Oral 120 / 120 Output: Urine 300 / 300 Other: Meal Breakfast Percent of Meal Consumed 100% Weight 102.6 kg 103.6 kg Blood Glucose* 337 264 264 Patient Weight 11/11/16 23:59 Weight 103.6 kg - General Appearance General appearance: well-developed, well-nourished, appears started age, obese EENT: ATNC, mucous membranes moist, hearing intact, vision intact Neck: supple Respiratory: clear Cardiology: edema (2+ BLE), regular rate, regular rhythm Gastrointestinal: normoactive bowel sounds, tenderness (mild), no guarding Additional Comments: BLE petechiae extending superiorly to abdomen. Neurologic: no focal deficit, alert and oriented x3 Musculoskeletal: no deformities, no erythema, no cyanosis Psychiatric: mood/affect appropriate, cooperative Results - Lab Results 11/11/16 05:10 11/11/16 10:06 Most recent lab results Calcium 7.3 mg/dL (8.6-10.8) L 11/11/16 10:06 Phosphorus 5.2 mg/dL (2.3-4.7) H 11/10/16 18:47 Magnesium 2.7 mg/dL (1.6-2.6) H 11/11/16 05:10 Consult Discharge Plan - Plan Referrals: Brie Ricks DO [Primary Care Provider] - 11/17/16 4:00 pm
--- NOTE | 2016-11-11 11:05 | Internal Med Progress Note ---
<Truman Zheng - Last Filed: 11/11/16 11:37> Date of Encounter: 11/11/16 Time of Encounter: 10:51 - Assessment and plan (1) Henoch-Schonlein purpura Current Visit: Yes Status: Acute Assessment and plan: Patient dose fit clinical picture She had a biopsy that revealed IgA vasculitis. Work up thus far has revealed Negative RF, CCP, MPO, PR3, Cryoglobulins. normal C3 and C4 levels. Hepatitis C screen from was negative. GFR prior to 11/03/16 was > 60. Today her Scr is 2.96. Large blood in UA but no casts seen. She did receive one gram of solumedrol last night in the ED We will continue 1 gram for the next 3 days. She will have a renal biopsy today. If renal function continues to decline may need a transfer plasmapharesis. strict I's and O's avoid nephrotoxins Strict I's and Os. Appreciate Nephrology and Rheumatology. (2) Henoch-Schonlein purpura nephritis Current Visit: Yes Status: Acute Assessment and plan: suspected. Biopsy today. Treatment as stated above (3) JONATHAN (acute kidney injury) Current Visit: Yes Status: Acute Assessment and plan: as stated above (4) Polyarthralgia Current Visit: Yes Status: Acute Assessment and plan: Likely from HSP. (5) Hyperkalemia Current Visit: Yes Status: Acute Assessment and plan: Mild down trending. continue to monitor (6) Hypermagnesemia Current Visit: Yes Status: Acute (7) Iron deficiency Current Visit: Yes Status: Acute Assessment and plan: possibly from blood stools last week Scheduled for OP colonoscopy. Normal Hg. add iron supplementation (8) Obesity (BMI 30-39.9) Current Visit: Yes Status: Acute Assessment and plan: weight loss (9) DVT prophylaxis Current Visit: Yes Status: Acute Assessment and plan: EPCDs No pharmicologic given recent bloody stools, hematuria, and thrombocytopenia. (10) Thrombocytopenia Current Visit: Yes Status: Acute Assessment and plan: mild continue to monitor. - Subjective Interval history: Mrs. Haddad is a 61 y.o. female who has had 2-3 months of polyarthralgias. she complains of intermittent swelling in her hands and feat. She states that she has also developed a rash on her lower extremities approximately one-two weeks ago. She was given steroids as an outpatient but states that have not helped. She states that the rash is not painful but it dose itch at times. she denies any redness of the eyes or blurred vision. She denies dry mouth and oral and genital ulcerations. She dose state that she is allergic to potting soil and has some " spots" on her face from this. She denies seeing any blood in her urine and has not noticed any color change. She admits to diffuse crampy abdominal pain that dose not radiate to the back. She dose admit to having some blood in her stool approximately a wee ago. She has had none since that time. When asked about history of autimmune disease she states that she was told she may have RA a few months. She denies any recent upper respiratory illness. She denies sick contacts. She denies history of blood transfusion and has never used IV drugs. She has no further complaints or concerns at this time. - Constitutional Vitals: Temp Pulse Resp BP Pulse Ox 97.5 F L 54 15 158/90 98 11/11/16 07:07 11/11/16 07:07 11/11/16 07:07 11/11/16 07:07 11/11/16 08:15 - Head Head exam: Present: atraumatic, normocephalic - Eye Eye exam: Present: PERRL, conjuntiva pink, sclera anicteric Pupils: Present: PERRL - Neck Neck exam general surgery: Present: supple, trachea midline. Absent: lymphadenopathy - Respiratory Respiratory exam: Present: CTAB. Absent: accessory muscle use, rales, rhonchi, wheezes - Cardiovascular Cardiovascular exam: Present: RRR, +S1, +S2. Absent: diastolic murmur, gallop, rubs, systolic murmur - GI/Abdominal GI/Abdominal exam: Present: normal bowel sounds, soft, tenderness (mild diffuse tenderness), no peritoneal signs. Absent: distended - Extremities Exam Extremities exam: Present: warm, radial pulses palpable and symetrical. Absent : calf tenderness, cyanotic, pedal edema Additional comments: ankles arre mildly swollen tender and warm to the touch. joint spaces of the hands are palpable. No overt swelling of the joints of the hand. - Skin Skin exam: Present: dry, intact, petechiae, rash (distrbution is the the lower extremities of the extensor and flexor surfaces. She also has some on the lower abdomen. Non palpable. Non blanchable. the left have some mall necrotic appearing areas of skin as well. ) Internal Medicine: Result - Labs CBC & Chem 7: 11/11/16 05:10 11/11/16 10:06 Labs: Short CBC 11/11/16 Range/Units 05:10 WBC 6.3 (4.3-11.1) K/mcL Hgb 12.2 (11.5-15.4) g/dL Hct 34.0 L (35.3-44.9) % Plt Count 115 L (140-400) K/mcL BMP 11/11/16 11/11/16 05:10 10:06 Sodium 134 L 136 Potassium 5.4 H D 5.0 H Chloride 105 106 Carbon Dioxide 21 20 BUN 69 H 70 H Creatinine 2.66 H 2.96 H Glucose 303 H 270 H Calcium 7.3 L 7.3 L - ABG Interpretation ABG results: PT/INR, D-dimer PT 11.0 Seconds (9.4-12.1) 11/10/16 18:47 Consult Discharge Plan - Plan Referrals: Brie Ricks DO [Primary Care Provider] - 11/17/16 4:00 pm <Bradford Cruz - Last Filed: 11/11/16 16:01> Date of Encounter: 11/11/16 - Constitutional Vitals: Temp Pulse Resp BP Pulse Ox 97.6 F 56 20 144/84 92 11/11/16 14:00 11/11/16 14:00 11/11/16 15:38 11/11/16 14:00 11/11/16 15:38 Internal Medicine: Result - Labs CBC & Chem 7: 11/11/16 05:10 11/11/16 10:06 Labs: Short CBC 11/11/16 Range/Units 05:10 WBC 6.3 (4.3-11.1) K/mcL Hgb 12.2 (11.5-15.4) g/dL Hct 34.0 L (35.3-44.9) % Plt Count 115 L (140-400) K/mcL BMP 11/11/16 11/11/16 05:10 10:06 Sodium 134 L 136 Potassium 5.4 H D 5.0 H Chloride 105 106 Carbon Dioxide 21 20 BUN 69 H 70 H Creatinine 2.66 H 2.96 H Glucose 303 H 270 H Calcium 7.3 L 7.3 L - ABG Interpretation ABG results: PT/INR, D-dimer PT 11.0 Seconds (9.4-12.1) 11/10/16 18:47 - Impressions Impressions Renal Biopsy CT 11/11/16 10:57 IMPRESSION: Successful CT guided core biopsy right kidney. D/ / Rickey Junior MD / Rickey Junior MD Interpreting Provider: Rickey Junior MD - Attending Attestation I examined this patient and my medical decision-making was reviewed with the Resident Physician, Dr Zheng. I agree with the documented findings, disposition and treatment plan as described except to the extent set forth below. She has a palpable purpuric rash on her lower extremities. The largest lesion measuring about 2 cm in diameter. She has some mild bruising on the inside of her forearms. We will treat her with high-dose steroids for Henoch Schonlein purpura. Increase steroids dose for uncontrolled diabetes. Follow-up with nephrology. Avoid nephrotoxins.
[2016-11-11] MEDS ORDERED: cloNIDine HCl 0.1 MG TABLET PO ONE (11:23)
[2016-11-11] MEDS: *HR* HYDROmorphone (PF) 1 MG/ML SYRINGE IVP PRN (14:31)
[2016-11-11] MEDS ORDERED: Ondansetron 4 MG/2 ML VIAL IVP PRN (16:05)
[2016-11-11] MEDS ORDERED: Insulin LISPRO 300 UNITS/3 ML VIAL SQ SCH (16:06)
--- NOTE | 2016-11-11 17:17 | Rheumatology Consult Note ---
Date of Encounter: 11/11/16 Time of Encounter: 15:00 Rheumatology Assess and Plan (1) Henoch-Schonlein purpura Current Visit: Yes Status: Acute This patient has a clinical picture diagnostic of Henoch-Schonlein purpura; she has rash with IgA deposition, abdominal pain, arthralgias, microscopic hematuria , proteinuria and a rising creatinine. - I agree with nephrology and medicine's current management to give high dosed steroids and proceed with renal biopsy to determine if there is crescentic nephritis. I did discuss the case with Dr. Freeman of nephrology. - Other manifestations, I would continue to monitor closely; abdominal pain which I suspect is related will likely improve with corticosteroids but any new , worsening or sudden abdominal pain, I would reimage. - No respiratory complaints or hemoptysis, so will hold off on chest xray for now but any changes, I would further assess. - Arthralgias/arthritis will likely improve with steroids. I suspect she has baseline osteoarthritis and many changes due to diabetes. - At this time, continue to monitor closely with careful attention to affected organs and will await biopsy. (2) JONATHAN (acute kidney injury) Current Visit: Yes Status: Acute Active HSP, biopsy pending. (3) Polyarthralgia Current Visit: Yes Status: Acute On steroid therapy, will continue to monitor (4) Type 2 diabetes mellitus Current Visit: Yes Status: Acute She will need close monitoring of blood glucose levels while on high dose steroids. 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 Haddad is a 61 year old female with PMH of DM2, HTN, HLD, neuropathy who present to [facility] after having a worsening creatinine as requested by her roll weigher. This patient states that in the last 2-3 weeks she broke out in a rash on her lower extremities. She reports being evaluated at the urgent care center was given a steroid pack. She states that then she started having worsening abdominal pain and joint stiffness and swelling. She went to see her primary care provider who did send her down to dermatology in which she had a biopsy that was consistent with IgA perivascular deposition suggestive of Henoch- Schonlein purpura. She was then started on low-dose prednisone and further evaluation showed a rising creatinine and microscopic hematuria. Upon evaluation by the roll weigher with her creatinine at 2.3, she was sent for inpatient workup. She was given IV Solu-Medrol when she had the emergency room. She also was having some intermittent abdominal pain and she did a CT of abdomen did show some dilated bowel and this has started to improve since she has been given corticosteroids in the inpatient setting. She does have the rash on the lower extremity; she states she itched it and does have some scabbed lesions. She denies any gross hematuria but anyway she did have some microscopic hematuria which she states is not something that she has known before. She reports joint pain and the worst joints are her bilateral wrists and somewhat in her fingers and hands. She states she is unable to make a fist but that is not abnormal for her. She reports having baseline osteoarthritis in her knees and feet and she is unable to fully extend her hands. Other workup has shown a negative rheumatoid factor, negative anti-CCP, negative Anka, negative cryoglobulins. Complements have been normal. CRP was elevated at 50. Past Med Surg Social Fam HX - Past Medical History Medical history: arthritis, asthma, cancer, diabetes, GERD, hyperlipidemia, hypertension Psychiatric history: anxiety - Past Surgical History Surgical History: appendectomy, cancer surgery, cholecystectomy, hysterectomy - Social History Smoking Status: Never smoker Smokeless Tobacco Status: No Alcohol use: none Drug use: none Medications and Allergies Albuterol Sulfate [Ventolin Hfa] 2 puff IH Q6H PRN 11/10/16 [History] Amitriptyline [Elavil] 25 mg PO DAILY 11/10/16 [History] Buspirone HCl [Buspar] 15 mg PO DAILY 11/10/16 [History] Carvedilol [Coreg] 25 mg PO BID 11/10/16 [History] Cetirizine HCl [Cetirizine HCl] 10 mg PO DAILY 11/10/16 [History] Fluticasone Propionate Nasal [Flonase] 50 mcg NS DAILY 11/10/16 [History] Hydrochlorothiazide 12.5 mg PO DAILY 11/10/16 [History] Insulin ASPART [Novolog Flexpen] 25 - 35 unit SQ TIDWM 11/10/16 [History] Insulin Glargine,Hum.rec.anlog [Lantus Solostar] 40 unit SQ BID 11/10/16 [ History] Levothyroxine [Synthroid] 150 mcg PO DAILY 11/10/16 [History] Losartan Potassium [Cozaar] 50 mg PO DAILY 11/10/16 [History] Metformin [Glucophage] 1,000 mg PO BID 11/10/16 [History] Mometasone/Formoterol [Dulera 200 Mcg/5 Mcg Inhaler] 1 puff IH DAILY 11/10/16 [ History] Omeprazole [PriLOSEC] 40 mg PO DAILY 11/10/16 [History] PredniSONE [PredniSONE] 20 mg PO DAILY 11/10/16 [History] Rosuvastatin [Crestor] 40 mg PO DAILY 11/10/16 [History] Sertraline [Zoloft] 100 mg PO DAILY 11/10/16 [History] Tiotropium [Spiriva] 18 mcg IH DAILY 11/10/16 [History] Allergies aspirin Allergy (Verified 11/10/16 21:08) Hives Sulfa (Sulfonamide Antibiotics) Allergy (Verified 11/10/16 16:16) Hives All Systems Review: General - no recent weight loss, weight gain, + fatigue, nofevers Eyes - no redness, loss of vision, dryness/itching/foreign body sensation ENT - + intermittent dryness of mouth, no oral ulcerations, nasal ulcerations, sore throat, frequent cavities Cardiovascular - no chest pain, palpitations, lightheadedness Respiratory - no shortness of breath, difficulty breathing at night, pleuritic chest pain and no cough Gastrointestinal - + abdominal pain, no nausea, vomiting, diarrhea, bloating, black/tarry stools, blood in stools or heartburn Genitourinary - no pain on urination, hematuria, frothy urine or ulcerations. Musculoskeletal - + chronic knee pain, + morning stiffness,+ joint swelling, + muscle ache Integumentary - + easy bruising, + lower extremity rashes, no hives, photosensitivity, skin thickening, alopecia, color changes of hands. No tattoos Neurological - no muscle weakness or paresthesias Hematologic/lymphatic - no tender or swollen glands, history of anemia or blood clots Rheumatology Exam Vital Signs, Last 4 Hours Temp Pulse Resp BP Pulse Ox 11/11/16 15:38 20 92 11/11/16 14:00 97.6 F 56 20 144/84 92 11/11/16 13:30 52 18 156/89 93 11/11/16 13:21 65 18 169/91 95 Exam: General - Alert and oriented x 3, no acute distress and appears comfortable HEENT - Conjunctiva clear, no alopecia or hair thinning, no facial rash, no nasal or oral mucosal lesions/ulcerations; + dry mucous membranes Heme/Lymph - No cervical or supraclavicular lymph node enlargement or tenderness. No pallor. Heart - S1S2 regular in rate and rhythm without murmurs, clicks or rubs. No peripheral edema. Radial pulses equal and strong Lungs - Unlabored breathing, anterior exam clear to auscultation bilaterally without wheezes or crackles (patient lying flat due to renal biopsy); no decrease in chest expansion Abdomen - Soft, nontender, nondistended. Obese and unable to palpate any hepatosplenomegaly Skin - Multiple petichial lesions on the lower extremity with a scabbed lesion on the left anterior lower obrien. No telangiectasias. No open ulcerations. Neurological - Gait normal, muscle strength 5/5 in all four extremities Musculoskeletal - Unable to make a fist bilateral but R>L, + prayer sign, mild swelling to the right wrist. No pain to palpation of joints. Rheumatology Results 11/11/16 05:10 11/11/16 10:06 Immunology Rheumatoid Factor < 15 IU/mL (0-29) 11/10/16 23:04 All other labs normal. Consult Discharge Plan - Plan Referrals: Brie Ricks DO [Primary Care Provider] - 11/17/16 4:00 pm
[2016-11-11] MEDS: Insulin DETEMIR 100 UNIT/ML X5UNITS SQ SCH (22:04)
[2016-11-12] MEDS: Ipratropium/Albuterol Neb 3 ML IH SCH ×3 (04:07→16:15)
[2016-11-12 05:39] LABS: Hemoglobin 11.5 g/dL (11.5-15.4); Immature Granulocytes % 0.6 % (0-4); Lymphocytes # 0.5 K/mcL (0.6-4.6); Lymphocytes % 4.2 %; Mean Corpuscular HGB Conc 34.8 g/dL (31.6-35.5); Mean Corpuscular Hemoglobin 28.3 pg (28.0-33.3); Mean Corpuscular Volume 81.3 fL (83.0-100.0); Mean Platelet Volume 10.1 fL (9.4-12.4); Monocytes # 0.4 K/mcL (0.0-1.3); Monocytes % 3.3 %; Neutrophils # 11.5 K/mcL (1.6-8.9); Platelet Count 110 K/mcL (140-400); Red Blood Count 4.06 M/mcL (3.82-4.97); Segmented Neutrophils % 91.9 %
[2016-11-12 06:01] LABS: Albumin 2.6 g/dL (3.5-5.0); Albumin/Globulin Ratio 0.9 (1.1-2.2); Bilirubin,Total 0.3 mg/dL (0.2-1.2); Calcium 7.1 mg/dL (8.6-10.8); Globulin 2.9 g/dL (2.4-3.5); Potassium 5.2 mEq/L (3.5-4.5); Total Protein 5.5 g/dL (6.0-8.3)
[2016-11-12] MEDS: *HR* HYDROmorphone (PF) 1 MG/ML SYRINGE IVP PRN (07:15)
[2016-11-12] MEDS: 0.9 % Sodium Chloride 1,000 ML IVC SCH ×2 (07:28→16:23)
[2016-11-12] MEDS: Insulin LISPRO 300 UNITS/3 ML VIAL SQ SCH ×6 (07:29→16:43)
[2016-11-12] MEDS: Pantoprazole 40 MG VIAL IVP SCH (09:15)
[2016-11-12] MEDS: Loratadine 10 MG TABLET PO SCH (09:15)
[2016-11-12] MEDS: Fluticasone Propionate Nasal 50 MCG/SPRAY BOTTLE NS SCH (09:30)
[2016-11-12] MEDS: Insulin DETEMIR 100 UNIT/ML X5UNITS SQ SCH (09:30)
--- NOTE | 2016-11-12 10:28 | Nephrology Progress Note ---
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 Concern for HSP. Renal biopsy has been performed and sent to [facility]. Patient receiving empiric high-dose steroids, will continue. Renal function worsened today with continued decline in Creatinine 2.9 yesterday to 3.7 today. Reaching out to [facility] for considerations of more aggressive medication or plasmapharesis. Strict I's and O's Avoid nephrotoxins (2) Henoch-Schonlein purpura nephritis Current Visit: Yes Status: Suspected See plan above. (3) JONATHAN (acute kidney injury) Current Visit: Yes Status: Acute See plan above. (4) Hyperkalemia Current Visit: Yes Status: Acute Worsening hyperkalemia today K+ 4.4>5.4>5.0>5.2 (5) Hypermagnesemia Current Visit: Yes Status: Acute Mg 2.7 yesterday. (6) Obesity (BMI 30-39.9) Current Visit: Yes Status: Acute (7) Type 2 diabetes mellitus Current Visit: Yes Status: Acute Management per primary medicine service. 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 Patient states her pain is worse today, nausea and arthralgia. Objective - Vital Signs Vital signs: Vital Signs Temp Pulse Resp BP Pulse Ox 11/12/16 10:23 97.5 F L 54 13 129/68 93 11/12/16 06:37 97.8 F 65 18 147/82 94 11/12/16 04:07 16 95 11/12/16 02:27 97.5 F L 57 20 117/58 93 11/11/16 23:16 97.8 F 60 18 120/63 93 11/11/16 21:54 16 94 11/11/16 19:54 98.6 F 57 18 135/68 94 11/11/16 19:50 94 11/11/16 18:00 97.8 F 60 18 144/76 94 Intake and Output 05/02/17 05/03/17 05/03/17 23:59 07:59 15:59 Intake Total 180 / 180 1000 / 1000 220 / 220 Output Total 0 / 0 200 / 200 100 / 100 Balance 180 / 180 800 / 800 120 / 120 Intake: IV Fluids 100 / 100 1000 / 1000 0.9 % Sodium Chloride 1, 1000 / 1000 000 ML @ 75 mls/hr IVC . [id number] [facility] Rx#: [id number] Rocephin 1,000 MG In 100 / 100 Dextrose 5% (Minibag+) 100 ML 100 ML @ 200 mls/ hr IVPB Q24H [facility] Rx#: [id number] Oral 80 / 80 0 / 0 220 / 220 Output: Urine 0 / 0 200 / 200 100 / 100 Other: Meal Dinner Breakfast Percent of Meal Consumed 0% 100% # Voids 1 Weight 104.2 kg Blood Glucose* 201 256 Patient Weight 11/12/16 23:59 Weight 104.2 kg - General Appearance General appearance: Present: well-developed, well-nourished, appears started age , obese EENT: Present: ATNC, mucous membranes moist, hearing intact, vision intact Neck: Present: supple Respiratory: Present: clear Cardiology: Present: edema (2+ BLE), regular rate, regular rhythm Integumentary: Present: warm and dry Additional Comments: BLE petechiae extending superiorly to abdomen. Neurologic: Present: no focal deficit, alert and oriented x3 Musculoskeletal: Present: no deformities, no cyanosis Psychiatric: Present: cooperative Additional Comments: anxious appearing - Lab 11/12/16 05:11 11/12/16 05:11 Most recent lab results Calcium 7.1 mg/dL (8.6-10.8) L 11/12/16 05:11 Phosphorus 5.2 mg/dL (2.3-4.7) H 11/10/16 18:47 Magnesium 2.7 mg/dL (1.6-2.6) H 11/11/16 05:10 - VTE Documentation of Mechanical Device: Graduated compression elastic hosiery Consult Discharge Plan - Plan Referrals: Brie Ricks DO [Primary Care Provider] - 11/17/16 4:00 pm
[2016-11-12] MEDS: Acetaminophen 325 MG TABLET PO PRN (11:36)
--- NOTE | 2016-11-12 14:23 | Discharge Summary ---
<Truman Zheng - Last Filed: 11/12/16 14:36> Date of Encounter: 11/12/16 Time of Encounter: 14:20 - Discharge Diagnosis (1) Henoch-Schonlein purpura Priority: Primary Status: Suspected (2) Henoch-Schonlein purpura nephritis Priority: Secondary Status: Suspected (3) JONATHAN (acute kidney injury) Priority: Secondary Status: Acute (4) Polyarthralgia Priority: Secondary Status: Acute (5) Hyperkalemia Priority: Secondary Status: Acute (6) Hypermagnesemia Priority: Secondary Status: Acute (7) Iron deficiency Priority: Secondary Status: Acute (8) Obesity (BMI 30-39.9) Priority: Secondary Status: Acute (9) DVT prophylaxis Priority: Secondary Status: Acute (10) Thrombocytopenia Priority: Secondary Status: Acute - Discharge Medications Home Medications: Albuterol Sulfate [Ventolin Hfa] 2 puff IH Q6H PRN 11/10/16 [History] Amitriptyline [Elavil] 25 mg PO DAILY 11/10/16 [History] Carvedilol [Coreg] 25 mg PO BID 11/10/16 [History] Cetirizine HCl 10 mg PO DAILY 11/10/16 [History] Fluticasone Propionate Nasal [Flonase] 50 mcg NS DAILY 11/10/16 [History] Insulin ASPART [Novolog Flexpen] 25 - 35 unit SQ TIDWM 11/10/16 [History] Insulin Glargine,Hum.rec.anlog [Lantus Solostar] 40 unit SQ BID 11/10/16 [ History] Levothyroxine [Synthroid] 150 mcg PO DAILY 11/10/16 [History] Mometasone/Formoterol [Dulera 200 Mcg/5 Mcg Inhaler] 1 puff IH DAILY 11/10/16 [ History] Rosuvastatin [Crestor] 40 mg PO DAILY 11/10/16 [History] Sertraline [Zoloft] 100 mg PO DAILY 11/10/16 [History] Tiotropium [Spiriva] 18 mcg IH DAILY 11/10/16 [History] Glucagon, Human Recombinant [Glucagen] 1 mg IM ONCE PRN #0 vial 11/12/16 [Rx] HYDROmorphone (PF) [Dilaudid] 0.5 mg IVP Q4HR PRN #0 syringe 11/12/16 [Rx] OxyCODONE Immed Rel [Roxicodone 5 MG] 10 mg PO Q6HR PRN #0 tablet 11/12/16 [Rx] Pantoprazole [Protonix] 40 mg IVP BID vial 11/12/16 [Rx] Allergies/Adverse Reactions: Allergies aspirin Allergy (Verified 11/10/16 21:08) Hives Sulfa (Sulfonamide Antibiotics) Allergy (Verified 11/10/16 16:16) Hives Date of admission: 11/11/16 17:55 Primary care physician: Bebe Pinzon Discharging clinician: Truman Zheng Anticipated date of discharge: 11/12/16 - Patient Status Disposition: Transfer Critical Access Hosp Condition: Fair Functional capacity at discharge: independent ambulation Overall status at discharge: patient is not back to baseline - Discharge Instructions Follow Up With: Brie Ricks DO [Primary Care Provider] - 11/17/16 4:00 pm - Diet and Activity Activity: as per physical therapy Diet: diabetic diet Hospital course: Ms. Haddad is a 61 year old female who was admitted to the [facility] for acute renal failure. She had a two-month course of polyarthralgia and developed a rash on her lower extremities. This was biopsied in the outpatient setting and was significant for IgA vasculitis. She would see nephrology and was sent in to the hospital and was noted that her serum creatinine was elevated above her baseline. Her baseline serum creatinine was approximately 1.0. Her current serum creatinine is 3.73. Additionally she has had little urine output with 300 mL yesterday. She has been followed by both nephrology and rheumatology. The patient has had 1 g of Solu-Medrol for 2 days. Also receiving a third gram today. However she has not had any improvement in her renal function. Renal function continues to decline. Additionally she is having worsening abdominal pain. I discussed this with her skein washer who did recommend that she be transferred to [facility] as she will likely need plasmapheresis for IgA nephritis/HSP. She did have a biopsy of the kidney on 11/11/2016. These samples were sent to [facility] pathology. I did discuss possible transfer with the patient and she is agreeable. She is currently medically stable and this transfer is necessary as we do not have plasmapheresis here in our hospital. We will discharge her whenever a bed is available at [facility]. - Time Spent with Patient Total time spent providing and/or coordinating discharge services: Greater than 30 minutes (Assessment approximately 40 minutes discharging the patient and coordinating her transfer to [facility].) - Constitutional Vitals: Temp Pulse Resp BP Pulse Ox 97.5 F L 54 16 129/68 99 11/12/16 10:23 11/12/16 10:23 11/12/16 10:33 11/12/16 10:23 11/12/16 10:33 Exam: Gen.: This is a well-developed well-nourished 61-year-old female who is alert and orientated to person place time and situation. Lying in bed appears to be comfortable and in no acute distress at this time. HEENT: Head is cephalic atraumatic. She does have some flushing of the face. The sternal appearance of the ears nose and eyes are normal. Moist mucous membranes. Dentition intact. Tongue and trachea midline. No mass or thyromegaly. Heart: Regular rate and rhythm without murmurs rubs or gallops. Lungs: Clear to auscultation bilaterally. Musculoskeletal: Grossly normal for age no gross deformities noted. He does have some mild swelling in ankles. Abdomen: Abdomen is obese, nondistended, diffusely mildly tender to palpation. No guarding or rebound tenderness. Extremities: There is some mild swelling in the feet proximally 1+ pitting edema to lower obrien. Integument: She does have a rash on her lower abdomen and both her extensor and flexor surfaces of her lower extremities. This is erythematous and appears petechiae. She does have some necrotic areas on some of these lesions. It is nonpalpable and non-blanchable. - VTE Documentation of Mechanical Device: Graduated compression elastic hosiery <Bradford Cruz - Last Filed: 11/12/16 19:04> Date of Encounter: 11/12/16 Date of admission: 11/11/16 17:55 Primary care physician: Bebe Pinzon - Patient Status Functional capacity at discharge: independent ambulation Overall status at discharge: patient is not back to baseline Hospital course: Ms. Haddad is a 61 year old female - Time Spent with Patient Total time spent providing and/or coordinating discharge services: - Constitutional Vitals: Temp Pulse Resp BP Pulse Ox 97.9 F 63 16 148/76 95 11/12/16 14:38 11/12/16 14:38 11/12/16 16:15 11/12/16 14:38 11/12/16 16:15 - Attending Attestation I examined this patient and my medical decision-making was reviewed with the Resident Physician, Dr Zheng. I agree with the documented findings, disposition and treatment plan as described except to the extent set forth below. Patient appears in no acute distress. Her heart exam reveals regular rate and rhythm S1-S2 with no murmurs. Abdomen is soft nontender nondistended. Skin reveals purpuric rash on lower extremities and abdominal flanks. Her back exam reveals kidney biopsy site with no hematoma or tenderness to palpation. Plan: Kidney failure in the context of Henoch-Schonlein purpura worsening in spite of high-dose steroid. We will transfer the patient to tertiary care hospital for further specialty care including possible plasmapheresis which is not currently available in our hospital.
[2016-11-12 14:43] VITALS: BP 148/76
[2016-11-13 07:44] LABS: ANA IgG by ELISA NONE DETECTED (None Detected)
[2016-11-14 07:53] LABS: GBM IgG Multiplex Bead Assay 0 AU/mL (0-19); Glomerular Basement Memb IgG NEGATIVE (Negative)
[2016-11-14 08:05] LABS: Myeloperoxidase Ab 3 AU/mL (0-19); Serine Protease-3 Antibody 0 AU/mL (0-19)
== END 2016-11-12 17:57 | disposition critical access hospital (66) | DRG 469 ==
LOC: 3ANU 15:38 → EMEROO 15:38 → 3ANU 22:50
PROVIDERS: ADMIT Internal Medicine; ATTEND Internal Medicine

== ENCOUNTER 2016-12-06 15:47 | Inpatient (IN) ==
--- NOTE | 2016-12-06 16:10 | Emergency Department Note ---
Disposition Clinical Impression: Renal failure, Diabetes, Obesity, Vomiting, Diarrhea, Hypokalemia, Hypocalcemia , Peripheral edema, Pancytopenia, Abnormal LFTs, UTI (urinary tract infection), Elevated troponin Disposition: Admitted As Inpatient Referrals: NO,PCP [Non-Partnered Physician] - Forms: ED Satisfaction Letter General Adult HPI - General Chief complaint: ED Recheck/Abnormal Lab/Rx Stated complaint: ABNORMAL LABS Time Seen by Provider: 12/06/16 16:06 Source: patient Limitations: no limitations - History of Present Illness HPI Narrative: 61-year-old female with a history of diabetes reports emergency department complaining of vomiting and diarrhea. She has had vomiting and diarrhea for the last few days. It has been nonbloody. The patient reports she went for routine laboratory studies today and her primary care physician called her and told her she had lab abnormalities and that she needed to be evaluated in the ED. The patient came in with her female theater projectionist for evaluation. The patient has felt generally weak. She has had no cough chest pain or shortness of breath. No abdominal pain. There is no history of acute back pain or difficulty moving her arms or legs independently no seizures or slurred speech or confusion. There is no history of unilateral arm or leg weakness or numbness. The patient reportedly has chronic UTI symptoms. The patient states she was recently admitted here at this facility then transferred [facility] regarding renal failure she was discharged on the 16 of this month from [facility]. The patient is currently not on dialysis. Pain Scale: 8 - Related Data Home Medications Medication Instructions Recorded Confirmed RX: Albuterol Sulfate [Ventolin 2 puff IH Q6H PRN 11/10/16 11/10/16 Hfa] RX: Amitriptyline [Elavil] 25 mg PO DAILY 11/10/16 11/10/16 RX: Carvedilol [Coreg] 25 mg PO BID 11/10/16 11/10/16 RX: Cetirizine HCl 10 mg PO DAILY 11/10/16 11/10/16 RX: Fluticasone Propionate Nasal 50 mcg NS DAILY 11/10/16 11/10/16 [Flonase] RX: Insulin ASPART [Novolog 25 - 35 unit SQ TIDWM 11/10/16 11/10/16 Flexpen] RX: Insulin Glargine,Hum.rec.anlog 40 unit SQ BID 11/10/16 11/10/16 [Lantus Solostar] RX: Levothyroxine [Synthroid] 150 mcg PO DAILY 11/10/16 11/10/16 RX: Mometasone/Formoterol [Dulera 1 puff IH DAILY 11/10/16 11/10/16 200 Mcg/5 Mcg Inhaler] RX: Rosuvastatin [Crestor] 40 mg PO DAILY 11/10/16 11/10/16 RX: Sertraline [Zoloft] 100 mg PO DAILY 11/10/16 11/10/16 RX: Tiotropium [Spiriva] 18 mcg IH DAILY 11/10/16 11/10/16 Previous Rx's Medication Instructions Recorded RX: Glucagon, Human Recombinant 1 mg IM ONCE PRN #0 vial 11/12/16 [Glucagen] RX: HYDROmorphone (PF) [Dilaudid] 0.5 mg IVP Q4HR PRN #0 syringe 11/12/16 RX: OxyCODONE Immed Rel 10 mg PO Q6HR PRN #0 tablet 11/12/16 [Roxicodone 5 MG] RX: Pantoprazole [Protonix] 40 mg IVP BID vial 11/12/16 Allergies Allergy/AdvReac Type Severity Reaction Status Date / Time aspirin Allergy Hives Verified 11/10/16 21:08 Sulfa (Sulfonamide Allergy Hives Verified 11/10/16 16:16 Antibiotics) All systems ED: reviewed and negative except as stated. Past Medical History - Past Medical History Medical history: Reports: arthritis, asthma, cancer, diabetes, GERD, hyperlipidemia, hypertension, renal disease Surgical history: Reports: appendectomy, cancer surgery, cholecystectomy, hysterectomy Psychiatric history: Reports: anxiety - Social History Smoking Status: Never smoker Smokeless Tobacco Status: No Alcohol use: Reports: none Drug use: Reports: none Physical Exam - General Limitations: no limitations General appearance: alert, in no apparent distress - Head Head exam: atraumatic, normocephalic, normal inspection - Eye Eye exam: Present: normal appearance, PERRL, EOMI. Absent: scleral icterus, conjunctival injection, miosis, mydriasis - ENT ENT exam: normal exam, normal oropharynx, mucous membranes moist, TM's normal bilaterally, normal external ear exam - Neck Neck exam: Present: normal inspection, full ROM, trachea midline. Absent: tenderness - Chest Chest inspection: Present: symmetric chest wall rise. Absent: tenderness - Respiratory Respiratory exam: Present: normal lung sounds bilaterally. Absent: respiratory distress, wheezes, stridor, accessory muscle use, prolonged expiratory phase - Cardiovascular Cardiovascular exam: Present: regular rate, normal rhythm, normal heart sounds - Abdominal Exam Abdominal exam: Present: soft, Non-Tender, normal bowel sounds. Absent: tenderness, distention, guarding, rebound, rigidity, pulsatile mass - Extremities Exam Extremities exam: Present: normal capillary refill, pedal edema. Absent: tenderness, joint swelling, calf tenderness - Expanded Lower Extremity Exam Hip/Pelvis exam: Present: full ROM. Absent: tenderness Upper leg exam: Present: full ROM. Absent: tenderness Knee exam: Present: full ROM. Absent: tenderness Lower leg exam: Present: full ROM. Absent: tenderness Ankle exam: Present: full ROM. Absent: tenderness Foot/toe exam: Present: full ROM. Absent: tenderness Neurovascular/Tendon exam: Present: normal capillary refill. Absent: motor deficit, sensory deficit, tendon deficit, extremity cold to touch, pallor - Back Exam Back exam: Present: normal inspection, full ROM. Absent: tenderness, CVA tenderness (R), CVA tenderness (L), vertebral tenderness - Neurological Exam Neurological exam: Present: alert, oriented X3, CN II-XII intact. Absent: motor sensory deficit - Psychiatric Psychiatric exam: Present: normal affect, normal mood - Skin Skin exam: Present: warm, dry, intact, normal color. Absent: rash, cyanosis, diaphoresis, erythema, pallor, mottled Course Vital Signs Temperature 99.2 F 12/06/16 15:57 Pulse Rate 75 12/06/16 15:57 Respiratory Rate 16 12/06/16 15:57 Blood Pressure 142/75 12/06/16 15:57 O2 Sat by Pulse Oximetry 95 12/06/16 15:57 Temperature 99.2 F 12/06/16 15:57 Pulse Rate 77 12/06/16 18:15 Respiratory Rate 20 12/06/16 18:15 Blood Pressure 158/84 12/06/16 18:15 O2 Sat by Pulse Oximetry 94 12/06/16 17:11 Oxygen Delivery Oxygen Delivery Room Air Medical Decision Making - [facility] Narrative Medical decision making narrative: The patient describes recurrent vomiting and diarrhea, she appears to be in acute renal failure with electrolyte abnormalities including hypokalemia and hypocalcemia. She has an elevated troponin but her EKG is normal, she is not complaining of chest pain. She is allergic to aspirin so this was not given. Rocephin was ordered. The patient is not tachycardic or febrile. She has urinary changes but reports a chronic UTI. I do not feel the patient is necessarily septic. Lactic acid was negative. I feel the patient will require hospitalization based on her acute renal failure and electrolyte abnormalities. I have discussed the case with the hospitalist on-call who has accepted the patient to their care. FEN management per the hospitalist. The patient is currently stable. - Lab Data Lab results reviewed: Yes I reviewed the patient's lab results. Result diagrams: 12/06/16 16:28 12/06/16 16:28 Lab Results 12/06/16 12/06/16 12/06/16 Range/Units 16:28 16:28 16:28 WBC 3.7 L (4.3-11.1) K/mcL RBC 2.88 L (3.82-4.97) M/mcL Hgb 8.1 L (11.5-15.4) g/dL Hct 24.4 L (35.3-44.9) % MCV 84.7 (83.0-100.0) fL MCH 28.1 (28.0-33.3) pg MCHC 33.2 (31.6-35.5) g/dL RDW 13.6 (11.5-14.5) % Plt Count 82 L (140-400) K/mcL MPV 9.3 L (9.4-12.4) fL Immature Gran % 1.1 (0-4) % Seg Neutrophils % 89.7 % Lymphocytes % 5.4 % Monocytes % 2.7 % Eosinophils % 1.1 % Basophils % 0.0 % Neutrophils # 3.3 (1.6-8.9) K/mcL Lymphocytes # 0.2 L (0.6-4.6) K/mcL Monocytes # 0.1 (0.0-1.3) K/mcL Eosinophils # 0.0 (0.0-0.6) K/mcL Basophils # 0.0 (0.0-0.2) K/mcL PT (9.4-12.1) Seconds INR APTT (26.0-36.0) Seconds Sodium 143 (136-145) mEq/L Potassium 3.2 L (3.5-4.5) mEq/L Chloride 108 (98-109) mEq/L Carbon Dioxide 21 (19-29) mEq/L BUN 73 H (7-20) mg/dL Creatinine 4.74 H (0.57-1.11) mg/dL Est GFR ( Amer) 11 L (> 60) Est GFR (Non-Af Amer) 9 L (> 60) BUN/Creatinine Ratio 15 (6-26) Glucose 221 H (70-99) mg/dL Calculated Osmolality 324 H (280-300) Lactic Acid (0.5-2.2) mmol/L Calcium 6.0 L* (8.6-10.8) mg/dL Phosphorus 4.6 (2.3-4.7) mg/dL Magnesium 1.7 (1.6-2.6) mg/dL Total Bilirubin 1.1 (0.2-1.2) mg/dL Direct Bilirubin 0.4 (0.0-0.5) mg/dL Indirect Bilirubin 0.7 (0.0-1.2) mg/dL AST 15 (5-34) Units/L ALT 27 (0-55) Units/L Alkaline Phosphatase 67 (38-126) Units/L Troponin I (0-0.03) ng/mL C-Reactive Protein 32 H (Less than 5) mg/L B-Natriuretic Peptide 103 H (0-100) pg/mL Serum Total Protein 5.4 L (6.0-8.3) g/dL Albumin 3.2 L (3.5-5.0) g/dL Globulin 2.2 L (2.4-3.5) g/dL Albumin/Globulin Ratio 1.5 (1.1-2.2) Lipase 29 (8-78) Units/L Urine Color (Yellow) Urine Clarity (Clear) Urine pH (5.0-8.0) pH Units Ur Specific [place] (1.010-1.025) Urine Protein (Neg-Trace) mg/dL Urine Glucose (UA) (Normal) mg/dL Urine Ketones (Negative) mg/dL Urine Blood (Negative) Urine Nitrite (Negative) Urine Bilirubin (Negative) Urine Urobilinogen (Normal) mg/dL Ur Leukocyte Esterase (Negative) Urine Microscopic RBC (0-3) per hpf Urine Microscopic WBC (0-3) per hpf Ur Squamous Epith Cells (None-Few) per lpf Amorphous Sediment (Few) Urine Bacteria (None-Few) per hpf Hyaline Casts (None-Few) per lpf Granular Casts (None Seen) per lpf Urine Yeast (None Seen) per hpf Ur Culture Indicated? (NO) 12/06/16 12/06/16 12/06/16 Range/Units 16:28 16:28 16:57 WBC (4.3-11.1) K/mcL RBC (3.82-4.97) M/mcL Hgb (11.5-15.4) g/dL Hct (35.3-44.9) % MCV (83.0-100.0) fL MCH (28.0-33.3) pg MCHC (31.6-35.5) g/dL RDW (11.5-14.5) % Plt Count (140-400) K/mcL MPV (9.4-12.4) fL Immature Gran % (0-4) % Seg Neutrophils % % Lymphocytes % % Monocytes % % Eosinophils % % Basophils % % Neutrophils # (1.6-8.9) K/mcL Lymphocytes # (0.6-4.6) K/mcL Monocytes # (0.0-1.3) K/mcL Eosinophils # (0.0-0.6) K/mcL Basophils # (0.0-0.2) K/mcL PT 11.7 (9.4-12.1) Seconds INR 1.1 APTT 34.2 (26.0-36.0) Seconds Sodium (136-145) mEq/L Potassium (3.5-4.5) mEq/L Chloride (98-109) mEq/L Carbon Dioxide (19-29) mEq/L BUN (7-20) mg/dL Creatinine (0.57-1.11) mg/dL Est GFR ( Amer) (> 60) Est GFR (Non-Af Amer) (> 60) BUN/Creatinine Ratio (6-26) Glucose (70-99) mg/dL Calculated Osmolality (280-300) Lactic Acid (0.5-2.2) mmol/L Calcium (8.6-10.8) mg/dL Phosphorus (2.3-4.7) mg/dL Magnesium (1.6-2.6) mg/dL Total Bilirubin (0.2-1.2) mg/dL Direct Bilirubin (0.0-0.5) mg/dL Indirect Bilirubin (0.0-1.2) mg/dL AST (5-34) Units/L ALT (0-55) Units/L Alkaline Phosphatase (38-126) Units/L Troponin I 0.07 H* (0-0.03) ng/mL C-Reactive Protein (Less than 5) mg/L B-Natriuretic Peptide (0-100) pg/mL Serum Total Protein (6.0-8.3) g/dL Albumin (3.5-5.0) g/dL Globulin (2.4-3.5) g/dL Albumin/Globulin Ratio (1.1-2.2) Lipase (8-78) Units/L Urine Color Yellow (Yellow) Urine Clarity Cloudy A (Clear) Urine pH 5.0 (5.0-8.0) pH Units Ur Specific [place] 1.013 (1.010-1.025) Urine Protein >=300 H (Neg-Trace) mg/dL Urine Glucose (UA) Normal (Normal) mg/dL Urine Ketones Negative (Negative) mg/dL Urine Blood Large H (Negative) Urine Nitrite Negative (Negative) Urine Bilirubin Negative (Negative) Urine Urobilinogen Normal (Normal) mg/dL Ur Leukocyte Esterase Small H (Negative) Urine Microscopic RBC 50-100 H (0-3) per hpf Urine Microscopic WBC 15-30 H (0-3) per hpf Ur Squamous Epith Cells Many H (None-Few) per lpf Amorphous Sediment Moderate H (Few) Urine Bacteria Few (None-Few) per hpf Hyaline Casts None Seen (None-Few) per lpf Granular Casts Few H (None Seen) per lpf Urine Yeast Many H (None Seen) per hpf Ur Culture Indicated? YES A (NO) 12/06/16 Range/Units 18:44 WBC (4.3-11.1) K/mcL RBC (3.82-4.97) M/mcL Hgb (11.5-15.4) g/dL Hct (35.3-44.9) % MCV (83.0-100.0) fL MCH (28.0-33.3) pg MCHC (31.6-35.5) g/dL RDW (11.5-14.5) % Plt Count (140-400) K/mcL MPV (9.4-12.4) fL Immature Gran % (0-4) % Seg Neutrophils % % Lymphocytes % % Monocytes % % Eosinophils % % Basophils % % Neutrophils # (1.6-8.9) K/mcL Lymphocytes # (0.6-4.6) K/mcL Monocytes # (0.0-1.3) K/mcL Eosinophils # (0.0-0.6) K/mcL Basophils # (0.0-0.2) K/mcL PT (9.4-12.1) Seconds INR APTT (26.0-36.0) Seconds Sodium (136-145) mEq/L Potassium (3.5-4.5) mEq/L Chloride (98-109) mEq/L Carbon Dioxide (19-29) mEq/L BUN (7-20) mg/dL Creatinine (0.57-1.11) mg/dL Est GFR ( Amer) (> 60) Est GFR (Non-Af Amer) (> 60) BUN/Creatinine Ratio (6-26) Glucose (70-99) mg/dL Calculated Osmolality (280-300) Lactic Acid 0.6 (0.5-2.2) mmol/L Calcium (8.6-10.8) mg/dL Phosphorus (2.3-4.7) mg/dL Magnesium (1.6-2.6) mg/dL Total Bilirubin (0.2-1.2) mg/dL Direct Bilirubin (0.0-0.5) mg/dL Indirect Bilirubin (0.0-1.2) mg/dL AST (5-34) Units/L ALT (0-55) Units/L Alkaline Phosphatase (38-126) Units/L Troponin I (0-0.03) ng/mL C-Reactive Protein (Less than 5) mg/L B-Natriuretic Peptide (0-100) pg/mL Serum Total Protein (6.0-8.3) g/dL Albumin (3.5-5.0) g/dL Globulin (2.4-3.5) g/dL Albumin/Globulin Ratio (1.1-2.2) Lipase (8-78) Units/L Urine Color (Yellow) Urine Clarity (Clear) Urine pH (5.0-8.0) pH Units Ur Specific [place] (1.010-1.025) Urine Protein (Neg-Trace) mg/dL Urine Glucose (UA) (Normal) mg/dL Urine Ketones (Negative) mg/dL Urine Blood (Negative) Urine Nitrite (Negative) Urine Bilirubin (Negative) Urine Urobilinogen (Normal) mg/dL Ur Leukocyte Esterase (Negative) Urine Microscopic RBC (0-3) per hpf Urine Microscopic WBC (0-3) per hpf Ur Squamous Epith Cells (None-Few) per lpf Amorphous Sediment (Few) Urine Bacteria (None-Few) per hpf Hyaline Casts (None-Few) per lpf Granular Casts (None Seen) per lpf Urine Yeast (None Seen) per hpf Ur Culture Indicated? (NO) - Radiology Data Radiology results reviewed: Yes I reviewed the patient's radiology results.
[2016-12-06 16:52] LABS: Eosinophils % 1.1 %; Hematocrit 24.4 % (35.3-44.9); Hemoglobin 8.1 g/dL (11.5-15.4); Immature Granulocytes % 1.1 % (0-4); Lymphocytes # 0.2 K/mcL (0.6-4.6); Lymphocytes % 5.4 %; Mean Corpuscular HGB Conc 33.2 g/dL (31.6-35.5); Mean Corpuscular Hemoglobin 28.1 pg (28.0-33.3); Mean Corpuscular Volume 84.7 fL (83.0-100.0); Mean Platelet Volume 9.3 fL (9.4-12.4); Monocytes # 0.1 K/mcL (0.0-1.3); Monocytes % 2.7 %; Red Blood Count 2.88 M/mcL (3.82-4.97); Red Cell Distribution Width 13.6 % (11.5-14.5); Segmented Neutrophils % 89.7 %
[2016-12-06 16:53] LABS: Neutrophils # 3.3 K/mcL (1.6-8.9); Platelet Count 82 K/mcL (140-400)
[2016-12-06 17:08] LABS: Bilirubin,Urine Negative (Negative); Blood,Urine Large (Negative); Clarity,Urine Cloudy (Clear); Color,Urine Yellow (Yellow); Glucose,Urine (UA) Normal (Normal); Ketones,Urine Negative (Negative); Leukocyte Esterase,Urine Small (Negative); Nitrite,Urine Negative (Negative); Protein,Urine >=300 mg/dL (Neg-Trace); Specific Gravity,Urine 1.013 (1.010-1.025); Urobilinogen,Urine Normal (Normal)
[2016-12-06 17:10] LABS: Albumin 3.2 g/dL (3.5-5.0); Albumin/Globulin Ratio 1.5 (1.1-2.2); Bilirubin,Direct 0.4 mg/dL (0.0-0.5); Bilirubin,Indirect 0.7 mg/dL (0.0-1.2); Bilirubin,Total 1.1 mg/dL (0.2-1.2); Globulin 2.2 g/dL (2.4-3.5); Magnesium 1.7 mg/dL (1.6-2.6); Phosphorous 4.6 mg/dL (2.3-4.7); Potassium 3.2 mEq/L (3.5-4.5); Total Protein 5.4 g/dL (6.0-8.3)
[2016-12-06 17:10] LABS: Hyaline Casts,Urine None Seen per lpf (None-Few); Squamous Epithelial Cell,Urine Many per lpf (None-Few); WBC,Urine 15-30 per hpf (0-3)
[2016-12-06 17:23] LABS: RBC,Urine 50-100 per hpf (0-3)
[2016-12-06 17:24] LABS: Amorphous Sediment,Urine Moderate (Few); Bacteria,Urine Few per hpf (None-Few); Granular Casts,Urine Few per lpf (None Seen); Yeast,Urine Many per hpf (None Seen)
[2016-12-06 17:45] LABS: INR 1.1; Prothrombin Time 11.7 Seconds (9.4-12.1)
[2016-12-06 17:47] LABS: Activated Partial Thrombo Time 34.2 Seconds (26.0-36.0)
[2016-12-06] MEDS ORDERED: Calcium Gluconate 3,000 MG in D5% in Water 250 ML IVPB ONE (21:10)
[2016-12-06] MEDS ORDERED: Naloxone 0.4 MG/ML INJ IVP PRN (21:14)
--- NOTE | 2016-12-06 21:47 | Internal Med History&Physical ---
<StevenbalwindermaykelJose tracey - Last Filed: 12/06/16 22:32> Date of Encounter: 12/06/16 Time of Encounter: 20:00 Assessment and Plan (1) UTI (urinary tract infection) Current visit: Yes Status: Acute Assess: Patienet presents from the ED with chief complain of nausea, vomiting, and diarrhea over the past 48 hours related to UTI infection. Patient reports having a history of >12 UTIs over the past year and a diagnosis of C. diff in 2016. Plan: Urine cultures ordered Ceftriaxone 1,000 mg IV ordered daily Repeat U/A ordered Repeat lactic acid ordered Monitor patient for signs of increased infection (fever, chills, N/V) Qualifiers: Urinary tract infection type: site unspecified Hematuria presence: without hematuria Qualified Code(s): N39.0 - Urinary tract infection, site not specified (2) Nausea and vomiting in adult Current visit: Yes Status: Acute Assess: Patient presents with acute nausea and vomiting for the past 48 hours related to UTI infection. Also states she has not eaten solid food since November 28 when she was discharged from [facility] having been admitted from November 12. Patient is currently dehydrated as well as hypocalcemic and hypokalemic. Plan: NPO diet IV fluids 125 ml/HR NS ordered Zofran IVP ordered for nausea/vomiting IV Protonix 40 mg ordered Monitor I&O daily (3) Acute generalized abdominal pain Current visit: No Status: Acute Assess: Patient presents with acute nausea, vomiting, and abdominal pain for the past 48 hours related to UTI infection. Also states she has not eaten solid food since November 28 when she was discharged from [facility] having been admitted from November 12. Patient is currently dehydrated as well as hypocalcemic and hypokalemic. Plan: NPO diet IV fluids 125 ml/HR NS ordered Zofran IVP ordered for nausea/vomiting IV Protonix 40 mg ordered Monitor I&O daily (4) Diarrhea Current visit: Yes Status: Acute Assess: Patient presents with acute diarrhea for the past 48 hours related to infection. Patient is currently dehydrated. Plan: NPO diet IV fluids 125 ml/HR NS ordered Bed rest with bathroom privileges/Up with assist only when out of bed ordered Qualifiers: Diarrhea type: unspecified type Qualified Code(s): R19.7 - Diarrhea, unspecified (5) Elevated troponin Current visit: Yes Status: Acute Assess: Patient presents with elevated troponin level of 0.07 from initial lab draw. She denies any cardiac history. Plan: Trend troponins x2 Continuous cardiac monitoring ordered Monitor patient and vital signs Follow-up labs ordered (6) Hypocalcemia Current visit: Yes Status: Acute Assess: Patient presents with acute hypercalcemia related to dehydration from nausea, vomiting, and diarrhea. Plan: Calcium gluconate 3,000 mg ONCE ordered Continuous cardiac telemetry ordered Follow-up labs ordered (7) Hypokalemia Current visit: Yes Status: Acute Assess: Patient presents with acute hypercalcemia related to dehydration from nausea, vomiting, and diarrhea. Plan: Potassium IVPB 20 mEq ONCE ordered Continuous cardiac telemetry ordered Follow-up labs ordered (8) Pancytopenia Current visit: Yes Status: Acute Assess: Patient presents with acute pancytopenia. Plan: Follow-up labs ordered Type and screen ordered for possible transfusion (9) Renal failure Current visit: Yes Status: Chronic Assess: Patient presents with chronic history of renal failure, with GFR of 9. Plan: Judicious use of IV fluids Nephrology consult placed for possible dialysis assessment Dietary consult ordered for education on renal diet (10) Diabetes Current visit: Yes Status: Chronic Assess: Patient presents with chronic history of diabetes. Plan: Patient educated on diabetic wounds and neuropathy Diabetes education ordered Continue glycemic medications Blood glucose monitoring ordered Qualifiers: Diabetes mellitus type: type 1 Diabetes mellitus complication status: with unspecified complications Qualified Code(s): E10.8 - Type 1 diabetes mellitus with unspecified complications (11) DVT prophylaxis Current visit: No Status: Acute Assess: Patient to receive DVT prophylaxis due to current infection, bed rest and up- with assist only status, and inpatient protocol. Plan: Lovenox 30 mg SQ due to reduced GFR Internal Medicine - H&P: HPI Chief complaint: N/V/D related to UTI Admitted From: Emergency Dept Plans for Post Hospital Care: Home History of present illness: Ms. Haddad is a 61 year old female presents from the ED with chief complain of nausea, vomiting, and diarrhea over the past 48 hours. Patient states she has not felt well since November 28 after being discharged from [facility], where she was inpatient from November 12-2016 for the diagnosis of renal failure and vasculitis. 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 Patient also reports right flank pain (severe) for the past 2 years with no resolve. Patient states she has a history of greater than 12 UTIs within the past year which brought her to the ED with symptoms of urinary urgency and frequency. Patient was also told to come to ED due to abnormal lab values, particularly hypokalemia and hypocalcemia, as well as pancytopenia. Patient currently has substantial pedal edema bilaterally and states she was on hydrochlorothiazide but was switched to Lasix 40 mg daily on 12/01 by her PCP. This Graves reports shortness of breath and states she uses CPAP at night. She also states she has unresolved abdominal pain which has been for some time. Patient denies chest pain, cough, dizziness, syncope, unilateral arm or leg weakness, numbness, or other cardiac related symptoms. Patient is admitted as inpatient status due to current UTI infection and dehydration related to nausea , vomiting, diarrhea. Past Med Surg Social Fam HX - Past Medical History Medical history: arthritis, asthma, cancer, diabetes, GERD, hyperlipidemia, hypertension, renal disease Psychiatric history: anxiety, depression - Past Surgical History Surgical History: appendectomy, cancer surgery (Thyroidectomy due to cancer), cholecystectomy, hysterectomy (Partial/ovaries remain), thyroidectomy - Social History Smoking Status: Former smoker Packs per day: 4 PPD - Reports quitting 15 years ago Smokeless Tobacco Status: No Alcohol use: none Drug use: none Occupational status: unemployed Current living situation: Home - Independent Activity Level: Uses cane/walker Recent Out of Country Travel Within the Last 8 Weeks: No Exposure or Possible Exposure to Illness During Travel: No - Family History Father Race: Family Member Ethnicity: Non- Living Status: Cause of : Accident Mother Race: Family Member Ethnicity: Non- Living Status: Age at : 76 Cause of : Non-Hodgkins lymphoma Hx Family Cardiac Disorders: Yes (Non-Hodgkins lymphoma) Brother Race: Family Member Ethnicity: Non- Living Status: Still Living Hx Family Cardiac Disorders: Yes (Afib, HD) Hx Family Endocrine Disorder: Yes (DM) Sister Race: Family Member Ethnicity: Non- Living Status: Still Living Hx Family Cardiac Disorders: Yes (HTN) Hx Family Cancer: Yes (Breast) Internal Medicine - H&P: Meds Albuterol Sulfate [Ventolin Hfa] 2 puff IH Q6H PRN 11/10/16 [History] Amitriptyline [Elavil] 25 mg PO DAILY 11/10/16 [History] Carvedilol [Coreg] 25 mg PO BID 11/10/16 [History] Cetirizine HCl 10 mg PO DAILY 11/10/16 [History] Fluticasone Propionate Nasal [Flonase] 50 mcg NS DAILY 11/10/16 [History] Insulin ASPART [Novolog Flexpen] 25 - 35 unit SQ TIDWM 11/10/16 [History] Insulin Glargine,Hum.rec.anlog [Lantus Solostar] 40 unit SQ BID 11/10/16 [ History] Levothyroxine [Synthroid] 150 mcg PO DAILY 11/10/16 [History] Rosuvastatin [Crestor] 40 mg PO DAILY 11/10/16 [History] Sertraline [Zoloft] 100 mg PO DAILY 11/10/16 [History] Tiotropium [Spiriva] 18 mcg IH DAILY 11/10/16 [History] Glucagon, Human Recombinant [Glucagen] 1 mg IM ONCE PRN #0 vial 11/12/16 [Rx] OxyCODONE Immed Rel [Roxicodone 5 MG] 10 mg PO Q6HR PRN #0 tablet 11/12/16 [Rx] Proair Hfa 12/06/16 [History] Allergies aspirin Allergy (Verified 11/10/16 21:08) Hives Sulfa (Sulfonamide Antibiotics) Allergy (Verified 11/10/16 16:16) Hives All Systems PM: A 10-system review of systems was performed and is negative for pertinent findings except as documented above in the HPI. - Constitutional Constitutional: anorexia (Patient states she has not eaten solid food since November 28), fatigue, weakness - EENT Eyes: no change in vision, no discharge, no pain, no photophobia Ears: no ear discharge, no ear pain, no tinnitus Nose, mouth and throat: no dysphagia, no nasal discharge, no neck pain, no sore throat - Breasts Breasts: as per HPI - Cardiovascular Cardiovascular ROS IM: no chest pain, no diaphoresis, no dyspnea, no lightheadedness, no palpitations, no syncope - Respiratory Respiratory: no cough, no dyspnea, no wheezing, no excessive phlegm production - Gastrointestinal Gastrointestinal: as per HPI, abdominal pain, diarrhea, heartburn, nausea, vomiting - Genitourinary Genitourinary: as per HPI, dysuria, flank pain (Right-sided), urinary frequency , urinary urgency Menstruation: as per HPI, post hysterectomy - Musculoskeletal Musculoskeletal ROS IM: no numbness, no tingling - Integumentary Integumentary IM: as per HPI (Patient currently has residual scabbing from healing vasculitis on legs and stomach) - Neurological Neurological ROS: no confusion, no convulsions, no focal weakness, no numbness, no tingling, no tremor(s) - Psychiatric Psychiatric: as per HPI, anxiety - Endocrine Endocrine IM: as per HPI, fatigue - Hematologic/Lymphatic Hematologic/Lymphatic: as per HPI, easy bruising - Allergic/Immunologic Allergic/Immunologic: as per HPI - Constitutional Vitals: Temp Pulse Resp BP Pulse Ox 98.2 F 78 16 144/70 92 12/06/16 21:18 12/06/16 21:18 12/06/16 21:18 12/06/16 21:18 12/06/16 21:18 General appearance: Present: cooperative, mild distress, A&O X 3, morbidly obese , pleasant, answers questions appropriately - Head Head exam: Present: atraumatic, normocephalic - Eye Eye exam: Present: PERRL, conjuntiva pink, sclera anicteric Pupils: Present: PERRL - ENT ENT exam: Present: normal exam, normal external ear exam - Neck Neck exam general surgery: Present: supple, trachea midline. Absent: lymphadenopathy - Respiratory Respiratory exam: Present: CTAB. Absent: accessory muscle use, rales, rhonchi, wheezes - Cardiovascular Cardiovascular exam: Present: RRR, +S1, +S2. Absent: diastolic murmur, gallop, rubs, systolic murmur - GI/Abdominal GI/Abdominal exam: Present: diminished bowel sounds, firm, guarding, tenderness - Rectal Rectal exam: Present: deferred - Additional comments: exam deferred. - Extremities Exam Extremities exam: Present: pedal edema, warm, radial pulses palpable and symetrical. Absent: calf tenderness, cyanotic - Back Exam Back exam: Present: normal inspection, tenderness (Right flank pain with palpation) - Neurological Exam Neurological exam: Present: CN II-XII intact, oriented X3, no focal deficits. Absent: pronater drift, facial droop, speech deficit - Psychiatric Psychiatric exam: Present: anxious - Skin Skin exam: Present: dry, intact Additional comments: Patient has scabbing present on legs and stomach related to healing vasculitis. Internal Med - H&P Results - Labs CBC & Chem 7: 12/06/16 21:53 12/06/16 16:28 - EKG Data EKG shows normal: sinus rhythm Rate: normal - EKG Data Prior EKG available for review: yes EKG comments: 12/06/16 22:00 EKG dated 10/16/14 shows sinus bradycardia with low QRS voltage in precordial leads and incomplete right bundle branch block. Possible anterior myocardial infarction, probably old. EKG dated 12/06/16 shows sinus rhythm and normal ECG. - Diagnostic Studies Chest x-ray Additional comments: 2-View CXR of the chest dated 12/06/16 shows: The cardiomediastinal silhouette is normal in size. The lungs are clear. No pleural effusion or pneumothorax is present. No subdiaphragmatic free air identified. Overall Impression: No acute cardiopulmonary process. <Bradford Cruz - Last Filed: 12/06/16 23:47> Date of Encounter: 12/06/16 Internal Medicine - H&P: HPI History of present illness: Ms. Haddad is a 61 year old female All Systems PM: A 10-system review of systems was performed and is negative for pertinent findings except as documented above in the HPI. - Constitutional Vitals: Temp Pulse Resp BP Pulse Ox 98.2 F 78 18 144/70 93 12/06/16 21:18 12/06/16 21:18 12/06/16 22:57 12/06/16 21:18 12/06/16 22:58 Internal Med - H&P Results - Labs CBC & Chem 7: 12/06/16 21:53 12/06/16 16:28 Labs: Short CBC 12/06/16 Range/Units 21:53 Hgb 8.1 L (11.5-15.4) g/dL Hct 23.5 L (35.3-44.9) % Cardiac Enzymes 12/06/16 Range/Units 21:53 Troponin I 0.07 H* (0-0.03) ng/mL - Attending Attestation I examined this patient and my medical decision-making was reviewed with the WATCH DIAL PRINTER/PA/Advanced Practice Nurse/Resident Physician. I agree with the documented findings, disposition and treatment plan as described except to the extent set forth below. Patient has a history of vasculitis with kidney involvement. She was recently admitted to our service and transferred to a tertiary care center for plasmapheresis. During that stay she had hemodialysis. Currently presents with nausea vomiting and diarrhea. Pertinent exam findings include 3+ lower extremity pitting edema. Her vasculitic rash has mostly resolved from last time I have examined her except for 2 small lesions on the left obrien. Plan: she has new leg edema however she appears to be intravascularly depleted. I will treat her with IV fluids. She complains of diarrhea. We will obtain C. difficile specimen given multiple hospitalizations, UTIs and antibiotic treatment. Her urinalysis is positive for leukocyte esterase and white blood cells consistent with a possible UTI. We will treat her empirically with ceftriaxone. We will consult nephrology to evaluate her for her worsening renal failure. 4 pancytopenia at this point we will monitor counts, if worsens consider consultation to hematology.
[2016-12-06] MEDS: 0.9 % Sodium Chloride 1,000 ML IVC SCH (22:01)
[2016-12-06 22:04] LABS: Hematocrit 23.5 % (35.3-44.9); Hemoglobin 8.1 g/dL (11.5-15.4)
[2016-12-06] MEDS: *HR* Morphine 2 MG/ML SYRINGE IVP PRN (22:56)
[2016-12-06] MEDS: Ondansetron 4 MG/2 ML VIAL IVP PRN (23:01)
[2016-12-07] MEDS ORDERED: D5% in Water 1,000 ML IVC PRN (00:37)
[2016-12-07] MEDS ORDERED: *HR* Dextrose 50 % in Water (Syg) 50 ML SYRINGE IVP PRN (00:37)
[2016-12-07] MEDS ORDERED: Dextrose Gel 15 GM PO PRN ×2 (00:37)
[2016-12-07] MEDS: Insulin LISPRO 300 UNITS/3 ML VIAL SQ SCH ×5 (03:06→20:28)
[2016-12-07 04:54] LABS: Mean Platelet Volume 9.1 fL (9.4-12.4)
[2016-12-07 04:56] LABS: Hematocrit 21.3 % (35.3-44.9); Hemoglobin 7.2 g/dL (11.5-15.4); Immature Granulocytes % 1.1 % (0-4); Immature Platelets 1.2 % (1.1-6.1); Lymphocytes # 0.3 K/mcL (0.6-4.6); Mean Corpuscular HGB Conc 33.8 g/dL (31.6-35.5); Mean Corpuscular Hemoglobin 28.5 pg (28.0-33.3); Mean Corpuscular Volume 84.2 fL (83.0-100.0); Monocytes # 0.2 K/mcL (0.0-1.3); Monocytes % 8.7 %; Neutrophils # 2.1 K/mcL (1.6-8.9); Platelet Count 96 K/mcL (140-400); Red Blood Count 2.53 M/mcL (3.82-4.97); Red Cell Distribution Width 13.3 % (11.5-14.5); Segmented Neutrophils % 79.2 %
[2016-12-07 05:08] LABS: Albumin 2.7 g/dL (3.5-5.0); Albumin/Globulin Ratio 1.2 (1.1-2.2); Bilirubin,Total 0.5 mg/dL (0.2-1.2); Calcium 6.2 mg/dL (8.6-10.8); Chol/HDL Ratio 3.3 (0-4.9); Globulin 2.2 g/dL (2.4-3.5); Magnesium 1.7 mg/dL (1.6-2.6); Phosphorous 5.6 mg/dL (2.3-4.7); Potassium 2.9 mEq/L (3.5-4.5); Total Protein 4.9 g/dL (6.0-8.3)
[2016-12-07] MEDS ORDERED: *HR* Enoxaparin 30 MG/0.3 ML SYRINGE SQ SCH (06:00)
[2016-12-07] MEDS: 0.9 % Sodium Chloride 1,000 ML IVC SCH ×2 (06:11→13:48)
[2016-12-07] MEDS: Pantoprazole 40 MG VIAL IVP SCH (07:42)
[2016-12-07] MEDS ORDERED: 0.9 % Sodium Chloride 250 ML ONE (09:32)
[2016-12-07] MEDS: Insulin DETEMIR 100 UNIT/ML X5UNITS SQ SCH ×2 (10:24→20:27)
[2016-12-07] MEDS: Ondansetron 4 MG/2 ML VIAL IVP PRN ×2 (12:30→20:42)
--- NOTE | 2016-12-07 13:56 | Internal Med Progress Note ---
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 We will consult nephrology for further recommendations. Continue IV hydration. Patient having minimal urine output. High risk for complications. (2) Acute generalized abdominal pain Current Visit: Yes Status: Acute Assessment and plan: This is much improved today. Patient wishes to try diet. We will place her on clear liquid diet. (3) Diabetes Current Visit: Yes Status: Chronic Assessment and plan: blood sugars are elevated. We will increase insulin regimen Qualifiers: Diabetes mellitus type: type 1 Diabetes mellitus complication status: with unspecified complications Qualified Code(s): E10.8 - Type 1 diabetes mellitus with unspecified complications (4) Diarrhea Current Visit: Yes Status: Acute Assessment and plan: This seems to have improved now. Patient not having any episodes here. We will continue to monitor. Qualifiers: Diarrhea type: unspecified type Qualified Code(s): R19.7 - Diarrhea, unspecified (5) Elevated troponin Current Visit: Yes Status: Acute Assessment and plan: Troponin slightly elevated but trending down. No chest pain. Likely from demand ischemia. We will get 2-D echocardiogram. 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 This could be an exacerbation of the same condition. We will consult nephrology for further management. Currently does not have any new skin lesions. (7) Hypocalcemia Current Visit: Yes Status: Acute Assessment and plan: Calcium 6.2 today. Patient has high phosphorus levels also. Will replace per nephrology recommendations. (8) Hypokalemia Current Visit: Yes Status: Acute Assessment and plan: Potassium is 2.9 today. We will replace both orally and intravenously. Could be related to gastrointestinal losses. (9) Nausea and vomiting in adult Current Visit: Yes Status: Acute Assessment and plan: This has now improved. Will start patient on diet and see how she does with that. Continue antinausea medications as needed (10) Pancytopenia Current Visit: Yes Status: Acute Assessment and plan: Hemoglobin is much lower today at 7.2. Will transfuse 1 unit packed red blood cells. WBC 2.6 and platelets 96. (11) UTI (urinary tract infection) Current Visit: Yes Status: Ruled-out Assessment and plan: Patient started on ceftriaxone for suspected UTI. Her urine culture does not show any pathogens. Abnormal urine analysis findings could be related to nephritis. We will stop antibiotics at this time. Qualifiers: Urinary tract infection type: site unspecified Hematuria presence: without hematuria Qualified Code(s): N39.0 - Urinary tract infection, site not specified - Subjective Interval history: Patient is awake and alert. Denies any shortness of breath. Feels much better compared to yesterday. Having minimal urine output. No chest pain. No palpitations. Continues to have bilateral lower extremity swelling. - Constitutional Vitals: Temp Pulse Resp BP Pulse Ox 98.1 F 70 13 130/87 94 12/07/16 13:00 12/07/16 13:00 12/07/16 13:00 12/07/16 13:00 12/07/16 13:00 General appearance: Present: cooperative, mild distress, A&O X 3, morbidly obese , pleasant, answers questions appropriately - Neck Neck exam general surgery: Present: supple, trachea midline. Absent: lymphadenopathy - Respiratory Respiratory exam: Present: CTAB. Absent: accessory muscle use, rales, rhonchi, wheezes - Cardiovascular Cardiovascular exam: Present: RRR, +S1, +S2. Absent: diastolic murmur, gallop, rubs, systolic murmur - GI/Abdominal GI/Abdominal exam: Present: normal bowel sounds, soft, no peritoneal signs. Absent: distended, tenderness - Extremities Exam Extremities exam: Present: pedal edema (Bilateral pitting pedal edema), warm, radial pulses palpable and symetrical. Absent: calf tenderness, cyanotic - Skin Skin exam: Present: dry, intact Additional comments: Healing wounds present on both legs and stomach from prior vasculitis Internal Medicine: Result - Labs CBC & Chem 7: 12/07/16 04:42 12/07/16 04:42 Labs: Short CBC 12/06/16 12/07/16 Range/Units 21:53 04:42 WBC 2.6 L (4.3-11.1) K/mcL Hgb 8.1 L 7.2 L (11.5-15.4) g/dL Hct 23.5 L 21.3 L (35.3-44.9) % Plt Count 96 L (140-400) K/mcL Neutrophils # 2.1 (1.6-8.9) K/mcL BMP 12/07/16 04:42 Sodium 139 Potassium 2.9 L Chloride 106 Carbon Dioxide 21 BUN 71 H Creatinine 4.83 H Glucose 206 H Calcium 6.2 L Cardiac Enzymes 12/06/16 12/07/16 Range/Units 21:53 04:42 Troponin I 0.07 H* 0.06 H* (0-0.03) ng/mL Liver Function 12/07/16 Range/Units 04:42 Total Bilirubin 0.5 (0.2-1.2) mg/dL AST 11 (5-34) Units/L ALT 23 (0-55) Units/L Alkaline Phosphatase 62 (38-126) Units/L Albumin 2.7 L (3.5-5.0) g/dL - ABG Interpretation ABG results: PT/INR, D-dimer PT 11.7 Seconds (9.4-12.1) 12/06/16 16:28 Consult Discharge Plan - Plan Referrals: Brie Ricks DO [Primary Care Provider] - - Attending Attestation This document has been at least partially created by [employer] recognition technology by Dr. Day. Errors in grammar, wording or other phrases may exist. If errors are found after the documentation is signed, they will be addressed individually in the addendum section of this document when appropriate.
[2016-12-07] MEDS ORDERED: Potassium Chloride 20 MEQ, Lidocaine 1% 2 ML in D5% in Water 250 ML IVPB ONE (14:04)
[2016-12-07] MEDS ORDERED: Calcium Chloride 1,000 MG in 0.9 % Sodium Chloride 100 ML IVPB ONE (14:05)
[2016-12-07] MEDS ORDERED: Ipratropium/Albuterol Neb 3 ML IH PRN (14:26)
[2016-12-07] MEDS: 0.9 % Sodium Chloride w KCl 20 MEQ/1,000 ML MLS IVC SCH (15:24)
[2016-12-07] MEDS: predniSONE 20 MG TABLET PO SCH (15:24)
[2016-12-07] MEDS ORDERED: Insulin LISPRO 300 UNITS/3 ML VIAL SQ SCH ×2 (16:30→21:00)
--- NOTE | 2016-12-07 16:40 | Nephrology Consult Note ---
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 Avoid nephrotoxins if possible Check cpk, uric acid Check urine sodium, creatinine and eosinophils and for proteinuria Will check MGIUEL and complements as well (3) Anemia Current Visit: Yes Status: Chronic Hgb noted low, agree with transfusion per primary team Qualifiers: Anemia type: unspecified type Qualified Code(s): D64.9 - Anemia, unspecified (4) Hypokalemia Current Visit: Yes Status: Acute Continue aggressive repletion History of Present Illness - Reason for Consult Consult date: 12/07/16 Acute Kidney Injury, Chronic Kidney Disease Requesting physician: Jose Petty - History of Present Illness 61 y o female with 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 Patient is a rather poor historian and does not have any insight to her recent diagnosis, she could not tell me what she was diagnosed with or the plan after discharge from [facility]. From the records, it was noted she was dischrged on prednisone 60mg daily. She reports decreased po intake lately as she is not sure what to eat fro her renal diet. No diarrhea. No recent NSAIDs. Past Med Surg Social Fam HX - Past Medical History Medical history: arthritis, asthma, cancer, diabetes, GERD, hyperlipidemia, hypertension, renal disease Psychiatric history: anxiety, depression - Past Surgical History Surgical History: appendectomy, cancer surgery (Thyroidectomy due to cancer), cholecystectomy, hysterectomy (Partial/ovaries remain), thyroidectomy - Social History Smoking Status: Former smoker Packs per day: 4 PPD - Reports quitting 15 years ago Smokeless Tobacco Status: No Alcohol use: none Drug use: none - Family History Sister Hx Family Cancer: Yes (Breast) Brother Hx Family Cardiac Disorders: Yes Hx Family Endocrine Disorder: Yes Father Race: Family Member Ethnicity: Non- Living Status: Cause of : Accident Mother Race: Family Member Ethnicity: Non- Living Status: Age at : 76 Cause of : Non-Hodgkins lymphoma Hx Family Cardiac Disorders: Yes (Non-Hodgkins lymphoma) Medications and Allergies Albuterol Sulfate [Ventolin Hfa] 2 puff IH Q6H PRN 11/10/16 [History] Amitriptyline [Elavil] 25 mg PO DAILY 11/10/16 [History] Carvedilol [Coreg] 25 mg PO BID 11/10/16 [History] Cetirizine HCl 10 mg PO DAILY 11/10/16 [History] Fluticasone Propionate Nasal [Flonase] 50 mcg NS DAILY 11/10/16 [History] Insulin ASPART [Novolog Flexpen] 2 - 10 unit SQ TIDWM 11/10/16 [History] Insulin Glargine,Hum.rec.anlog [Lantus Solostar] 35 unit SQ DAILY 11/10/16 [ History] Levothyroxine [Synthroid] 150 mcg PO DAILY 11/10/16 [History] Rosuvastatin [Crestor] 40 mg PO DAILY 11/10/16 [History] Sertraline [Zoloft] 100 mg PO DAILY 11/10/16 [History] Tiotropium [Spiriva] 18 mcg IH DAILY 11/10/16 [History] Buspirone HCl [Buspar] 7.5 mg PO BID 12/07/16 [History] Dapsone 25 mg PO BID 12/07/16 [History] Docusate [Colace] 100 mg PO BID 12/07/16 [History] Ergocalciferol (VITAMIN D2) [Vitamin D2] 50,000 unit PO QWEEK 12/07/16 [History] Famotidine [Pepcid] 40 mg PO DAILY 12/07/16 [History] Furosemide [Lasix] 40 mg PO DAILY 12/07/16 [History] Losartan Potassium [Cozaar] 50 mg PO DAILY 12/07/16 [History] Metformin HCl [Glucophage] 1,000 mg PO BID 12/07/16 [History] Mometasone/Formoterol [Dulera 200 Mcg/5 Mcg Inhaler] 2 puff IH BID 12/07/16 [ History] NIFEdipine [Nifedipine ER] 90 mg PO DAILY 12/07/16 [History] Omeprazole [PriLOSEC] 40 mg PO DAILY 12/07/16 [History] PredniSONE [Deltasone] 20 mg PO TID 12/07/16 [History] Allergies aspirin Allergy (Verified 11/10/16 21:08) Hives Sulfa (Sulfonamide Antibiotics) Allergy (Verified 11/10/16 16:16) Hives Review of Systems All Systems: reviewed and no additional remarkable complaints except as stated ( 10 systems reviewed) Exam - Vital Signs Vital signs: Initial Vital Signs Temp Pulse Resp BP Pulse Ox 99.2 F 75 16 142/75 95 12/06/16 15:57 12/06/16 15:57 12/06/16 15:57 12/06/16 15:57 12/06/16 15:57 Vital Signs - Last 8 Hours Temp Pulse Resp BP Pulse Ox 12/07/16 15:20 98.2 F 63 16 135/74 93 12/07/16 13:00 98.1 F 70 13 130/87 94 12/07/16 11:42 98.0 F 65 16 136/66 96 12/07/16 10:01 97.8 F 67 16 112/58 91 12/07/16 09:45 97.8 F 64 14 124/61 Intake and Output 12/07/16 12/07/16 12/07/16 07:59 15:59 23:59 Intake Total 1380 / 1380 1220 / 1220 Output Total 1150 / 1150 Balance 1380 / 1380 70 / 70 Intake: IV Fluids 1380 / 1380 200 / 200 0.9 % Sodium Chloride 1, 1000 / 1000 200 / 200 000 ML @ 125 mls/hr IVC . Q8H [facility] Rx#:[id number] Calcium Gluconate 3,000 280 / 280 MG In Dextrose 5% 250 ML @ 125 mls/hr IVPB ONCE ONE Rx#:[id number] Potassium Chloride 10 mEq 100 / 100 /100mL 10 meq In 100 ml @ 100 mls/hr IVPB Q1H [facility] Rx#:[id number] Oral 720 / 720 Blood Product 300 / 300 Rbcs Leuko Poor As-1 300 / 300 Unit [id number] Output: Urine 1150 / 1150 Urethral (Esquivel) 1150 / 1150 Other: Weight 104 kg Blood Glucose* 203 143 Patient Weight 05/28/17 23:59 Weight 104 kg - General Appearance General appearance: well-developed, well-nourished (NAD) EENT: ATNC, mucous membranes dry Neck: no JVD, supple Respiratory: clear Cardiology: edema, normal S1, normal S2 Gastrointestinal: no tenderness, no guarding, obese Integumentary: rash (mild LE bilat) Neurologic: no focal deficit Musculoskeletal: no deformities Psychiatric: mood/affect appropriate Results - Lab Results 12/11/16 04:35 12/11/16 04:35 Most recent lab results Calcium 6.2 mg/dL (8.6-10.8) L 12/07/16 04:42 Phosphorus 5.6 mg/dL (2.3-4.7) H 12/07/16 04:42 Magnesium 1.7 mg/dL (1.6-2.6) 12/07/16 04:42 Consult Discharge Plan - Plan Referrals: Brie Ricks DO [Primary Care Provider] - 12/16/16 9:45 am ()
[2016-12-07] MEDS: *HR* Heparin 5,000 UNIT/ML VIAL SQ SCH (17:24)
[2016-12-07 17:33] LABS: Uric Acid 7.1 mg/dL (2.6-6.0)
[2016-12-07] MEDS: *HR* Morphine 2 MG/ML SYRINGE IVP PRN (20:42)
[2016-12-08 02:01] LABS: Creatinine,Urine 126 mg/dL; Microalbum/Creatinine Ratio,Ur 1587 (0-30)
[2016-12-08 02:02] LABS: Microalbumin,Urine > 2000 mg/L
[2016-12-08 03:14] LABS: Protein/Creatinine Ratio,Urine 2.92 mg/mg (0-0.20)
[2016-12-08 05:02] LABS: Hemoglobin 7.8 g/dL (11.5-15.4); Immature Granulocytes % 0.7 % (0-4); Red Cell Distribution Width 14.3 % (11.5-14.5); Segmented Neutrophils % 85.5 %
[2016-12-08 05:04] LABS: Eosinophils % 0.4 %; Hematocrit 23.2 % (35.3-44.9); Lymphocytes # 0.3 K/mcL (0.6-4.6); Lymphocytes % 10.4 %; Mean Corpuscular HGB Conc 33.6 g/dL (31.6-35.5); Mean Corpuscular Hemoglobin 28.7 pg (28.0-33.3); Mean Corpuscular Volume 85.3 fL (83.0-100.0); Mean Platelet Volume 9.7 fL (9.4-12.4); Monocytes # 0.1 K/mcL (0.0-1.3); Neutrophils # 2.3 K/mcL (1.6-8.9); Red Blood Count 2.72 M/mcL (3.82-4.97)
[2016-12-08 05:08] LABS: Platelet Count 96 K/mcL (140-400)
[2016-12-08 05:19] LABS: Calcium 6.3 mg/dL (8.6-10.8); Potassium 3.8 mEq/L (3.5-4.5)
[2016-12-08] MEDS: 0.9 % Sodium Chloride w KCl 20 MEQ/1,000 ML MLS IVC SCH ×2 (05:24→15:52)
[2016-12-08] MEDS: *HR* Heparin 5,000 UNIT/ML VIAL SQ SCH ×2 (05:24→17:03)
[2016-12-08] MEDS: Ondansetron 4 MG/2 ML VIAL IVP PRN ×2 (07:59→15:52)
[2016-12-08] MEDS: Pantoprazole 40 MG VIAL IVP SCH (07:59)
[2016-12-08] MEDS: predniSONE 20 MG TABLET PO SCH (07:59)
[2016-12-08] MEDS: Insulin LISPRO 300 UNITS/3 ML VIAL SQ SCH ×4 (08:00→21:28)
[2016-12-08] MEDS: Tiotropium 18 MCG inhalation IH SCH (10:45)
[2016-12-08] MEDS: Insulin DETEMIR 100 UNIT/ML X5UNITS SQ SCH ×2 (13:16→21:28)
[2016-12-08] MEDS: *HR* Promethazine 25 MG/ML VIAL IVP PRN ×2 (13:17→20:01)
--- NOTE | 2016-12-08 14:08 | Internal Med Progress Note ---
Date of Encounter: 12/08/16 Time of Encounter: 11:00 - Assessment and plan (1) Renal failure Current Visit: Yes Status: Acute Assessment and plan: Having better urine output. Creatinine remained stable. Continue gentle IV hydration. Follow nephrology recommendations. Likely from HSP. On prednisone. High risk for complications due to renal failure (2) Acute generalized abdominal pain Current Visit: Yes Status: Acute Assessment and plan: Improving abdominal pain today. She remains nauseated. Continue antinausea medications. (3) Diabetes Current Visit: Yes Status: Chronic Assessment and plan: blood sugars remain elevated. We will increase long-acting insulin coverage Qualifiers: Diabetes mellitus type: type 1 Diabetes mellitus complication status: with unspecified complications Qualified Code(s): E10.8 - Type 1 diabetes mellitus with unspecified complications (4) Diarrhea Current Visit: Yes Status: Resolved Assessment and plan: This is now resolved. Patient will not be started on diet. Qualifiers: Diarrhea type: unspecified type Qualified Code(s): R19.7 - Diarrhea, unspecified (5) Elevated troponin Current Visit: Yes Status: Acute Assessment and plan: Likely from demand ischemia/worsening renal function. No chest pain. Echocardiogram shows normal systolic ejection fraction of 55% with mild diastolic dysfunction. All wall segments showed normal motion. (6) Henoch-Schonlein purpura Current Visit: Yes Status: Chronic Assessment and plan: No new skin lesions. This is likely the cause of patient's renal dysfunction and abdominal pain. On prednisone. (7) Hypocalcemia Current Visit: Yes Status: Acute Assessment and plan: Improving calcium levels. Will place patient on oral calcium supplements. (8) Hypokalemia Current Visit: Yes Status: Acute Assessment and plan: Improved with IV potassium supplements. (9) Nausea and vomiting in adult Current Visit: Yes Status: Acute Assessment and plan: Continue antinausea medications (10) Pancytopenia Current Visit: Yes Status: Acute Assessment and plan: With anemia. Hemoglobin 7.8 today. We will continue to monitor blood counts. - Subjective Interval history: Patient continues to have nausea although her abdominal discomfort is improving. Having better urine output. No other new complaints at this time. Continues to have bilateral lower extremity swelling. - Constitutional Vitals: Temp Pulse Resp BP Pulse Ox 97.8 F 67 16 158/80 92 12/08/16 07:26 12/08/16 13:24 12/08/16 12:03 12/08/16 12:03 12/08/16 13:24 General appearance: Present: cooperative, mild distress, A&O X 3, morbidly obese , pleasant, answers questions appropriately - Respiratory Respiratory exam: Present: CTAB. Absent: accessory muscle use, rales, rhonchi, wheezes - Cardiovascular Cardiovascular exam: Present: RRR, +S1, +S2. Absent: diastolic murmur, gallop, rubs, systolic murmur - GI/Abdominal GI/Abdominal exam: Present: normal bowel sounds, soft, no peritoneal signs. Absent: distended, tenderness - Extremities Exam Extremities exam: Present: warm, radial pulses palpable and symetrical. Absent : calf tenderness, cyanotic, pedal edema - Neurological Exam Neurological exam: Present: alert, oriented X3, no focal deficits. Absent: facial droop, speech deficit Internal Medicine: Result - Labs CBC & Chem 7: 12/08/16 03:51 12/08/16 03:51 Labs: Short CBC 12/08/16 Range/Units 03:51 WBC 2.7 L (4.3-11.1) K/mcL Hgb 7.8 L (11.5-15.4) g/dL Hct 23.2 L (35.3-44.9) % Plt Count 96 L (140-400) K/mcL Neutrophils # 2.3 (1.6-8.9) K/mcL BMP 12/07/16 12/08/16 16:58 03:51 Sodium 142 142 Potassium 3.8 Chloride 111 H Carbon Dioxide 21 BUN 67 H Creatinine 4.79 H Glucose 176 H Calcium 6.3 L - ABG Interpretation ABG results: PT/INR, D-dimer PT 11.7 Seconds (9.4-12.1) 12/06/16 16:28 - Impressions Impressions Abdomen/Pelvis CT 12/07/16 14:48 IMPRESSION: Interval development of a small amount of pelvic ascites and perihepatic ascites of unknown cause. Mild splenomegaly. Mild edema of the abdominal wall. Moderate sigmoid diverticulosis without diverticulitis. Very small right pleural effusion and tiny left pleural effusion both new from the prior study. Benign left lower lobe pulmonary nodule. D/ / Devon Levy MD / Devon Levy MD Interpreting Provider: Devon Levy MD Consult Discharge Plan - Plan Referrals: Brie Ricks DO [Primary Care Provider] - (SENT WEB REQUEST FOR A FOLLOW UP APPOINTMENT ON 12-08-16 @ 0904) - Attending Attestation This document has been at least partially created by [employer] recognition technology by Dr. Day. Errors in grammar, wording or other phrases may exist. If errors are found after the documentation is signed, they will be addressed individually in the addendum section of this document when appropriate.
[2016-12-08] MEDS: *HR* Morphine 2 MG/ML SYRINGE IVP PRN ×2 (15:51→20:01)
[2016-12-08] MEDS: Fluticasone Propionate Nasal 50 MCG/SPRAY BOTTLE NS SCH (16:06)
--- NOTE | 2016-12-08 16:30 | Nephrology Progress Note ---
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 still with abdominal pain, CT abd/pelvis results noted negative Objective - Vital Signs Vital signs: Vital Signs Temp Pulse Resp BP Pulse Ox 12/08/16 15:25 98.1 F 60 17 167/88 93 12/08/16 13:24 67 92 12/08/16 12:03 61 16 158/80 95 12/08/16 07:45 59 12/08/16 07:26 97.8 F 61 16 130/80 92 12/08/16 05:30 61 12/08/16 03:16 97.4 F L 56 14 111/55 95 12/08/16 01:00 57 12/07/16 22:50 97.6 F 58 14 103/59 95 12/07/16 22:46 16 90 12/07/16 20:30 67 12/07/16 18:34 98.4 F 69 16 150/77 93 Intake and Output 12/08/16 12/08/16 12/08/16 07:59 15:59 23:59 Intake Total 1000 / 1000 1640 / 1640 Output Total 375 / 375 Balance 1000 / 1000 1265 / 1265 Intake: IV Fluids 1000 / 1000 800 / 800 KCl 20 mEq in 0.9% Sodium 1000 / 1000 800 / 800 Chloride 20 meq In 1,000 ml @ 75 mls/hr IVC . [id number] [facility] Rx#: [id number] Oral 840 / 840 Output: Urine 375 / 375 Urethral (Esquivel) 375 / 375 Other: Meal Lunch Weight 103.6 kg Blood Glucose* 183 210 Patient Weight 12/08/16 23:59 Weight 103.6 kg - General Appearance General appearance: Present: well-developed, well-nourished (NAD) EENT: Present: ATNC, mucous membranes dry Neck: Present: no JVD, supple Respiratory: Present: clear Cardiology: Present: edema (LE bilat), normal S1, normal S2 Gastrointestinal: Present: tenderness (diffuse), no guarding, obese Integumentary: Present: rash, warm and dry Neurologic: Present: no focal deficit Musculoskeletal: Present: no deformities Psychiatric: Present: mood/affect appropriate, cooperative - Lab 12/11/16 04:35 12/11/16 04:35 Most recent lab results Calcium 6.3 mg/dL (8.6-10.8) L 12/08/16 03:51 Phosphorus 5.6 mg/dL (2.3-4.7) H 12/07/16 04:42 Magnesium 1.7 mg/dL (1.6-2.6) 12/07/16 04:42 Urine Creatinine 126 mg/dL 12/08/16 01:15 Urine Total Protein 368 mg/dL (1-14) H 12/08/16 01:15 Consult Discharge Plan - Plan Referrals: Brie Ricks DO [Primary Care Provider] - 12/16/16 9:45 am ()
[2016-12-09] MEDS: 0.9 % Sodium Chloride w KCl 20 MEQ/1,000 ML MLS IVC SCH ×2 (04:54→17:17)
[2016-12-09] MEDS: *HR* Heparin 5,000 UNIT/ML VIAL SQ SCH ×2 (06:18→17:16)
--- NOTE | 2016-12-09 07:23 | Electrocardiograph Report ---
[address] [address] Test Date: 2016-12-06 Pat Name: Savanna Haddad Department: 102 Room: [facility] Gender: F Tree Doctor: Derrell : 1955 Requested By: Oswaldo Ramos Order Number: [id number] Reading MD: Rasta Ashford MD Measurements Intervals [place] Rate: 73 P: 48 NM: 154 QRS: -11 QRSD: 90 T: 57 QT: 403 QTc: 429 Interpretive Statements SINUS RHYTHM Electronically Signed On 12-09-2016 7:21:43 EDT by Rasta Ashford MD
[2016-12-09] MEDS: Tiotropium 18 MCG inhalation IH SCH (07:58)
[2016-12-09 08:55] LABS: Eosinophils % 0.8 %; Hemoglobin 8.3 g/dL (11.5-15.4); Red Cell Distribution Width 14.6 % (11.5-14.5)
[2016-12-09 08:56] LABS: Hematocrit 25.6 % (35.3-44.9); Immature Granulocytes % 0.5 % (0-4); Immature Platelets 1.5 % (1.1-6.1); Lymphocytes # 0.8 K/mcL (0.6-4.6); Lymphocytes % 19.7 %; Mean Corpuscular HGB Conc 32.4 g/dL (31.6-35.5); Mean Corpuscular Hemoglobin 28.3 pg (28.0-33.3); Mean Corpuscular Volume 87.4 fL (83.0-100.0); Mean Platelet Volume 9.2 fL (9.4-12.4); Monocytes # 0.3 K/mcL (0.0-1.3); Monocytes % 8.2 %; Neutrophils # 2.8 K/mcL (1.6-8.9); Red Blood Count 2.93 M/mcL (3.82-4.97); Segmented Neutrophils % 70.8 %
[2016-12-09 09:00] LABS: Platelet Count 98 K/mcL (140-400)
[2016-12-09] MEDS: Insulin LISPRO 300 UNITS/3 ML VIAL SQ SCH ×4 (09:01→21:14)
[2016-12-09 09:09] LABS: Potassium 3.9 mEq/L (3.5-4.5)
[2016-12-09 09:13] LABS: Calcium 5.9 mg/dL (8.6-10.8)
[2016-12-09] MEDS: *HR* Promethazine 25 MG/ML VIAL IVP PRN ×2 (09:47→17:17)
[2016-12-09] MEDS: Insulin DETEMIR 100 UNIT/ML X5UNITS SQ SCH ×2 (09:48→21:13)
[2016-12-09] MEDS: Fluticasone Propionate Nasal 50 MCG/SPRAY BOTTLE NS SCH (09:48)
[2016-12-09] MEDS: Pantoprazole 40 MG VIAL IVP SCH (09:48)
[2016-12-09] MEDS: predniSONE 20 MG TABLET PO SCH (09:48)
[2016-12-09 11:20] LABS: Albumin 2.9 g/dL (3.5-5.0); Albumin/Globulin Ratio 1.4 (1.1-2.2); Bilirubin,Direct 0.2 mg/dL (0.0-0.5); Bilirubin,Indirect 0.3 mg/dL (0.0-1.2); Bilirubin,Total 0.5 mg/dL (0.2-1.2); Globulin 2.1 g/dL (2.4-3.5)
[2016-12-09] MEDS ORDERED: Calcium Gluconate 1,000 MG in D5% in Water 100 ML IVPB ONE (11:28)
--- NOTE | 2016-12-09 11:35 | Internal Med Progress Note ---
Date of Encounter: 12/09/16 Time of Encounter: 11:32 - Assessment and plan (1) Acute generalized abdominal pain Current Visit: Yes Status: Acute Assessment and plan: Improving abdominal pain today. She remains nauseated. Continue antiemetics. (2) Acute kidney injury superimposed on chronic kidney disease Current Visit: Yes Status: Acute Assessment and plan: No evidence of improvement clinically renal following Continue IVF hydration Possibly a progression of HSP. vs acute exacerbation due to diuretics and gastroenteritis Continue steroids By nephrology patient may need initiation of hemodialysis if she does not improve. Patient may also need plasmapheresis. Plan of care discussed verbalizes understanding. Patient remains high-risk due to JONATHAN (3) Type 2 diabetes mellitus Current Visit: Yes Status: Chronic Assessment and plan: 6 acceptable at this time. Continue current insulin regimen. Fingersticks before meals at bedtime. Qualifiers: Diabetes mellitus complication status: with unspecified complications Diabetes mellitus penitentiary insulin use: with penitentiary use Qualified Code(s) : E11.8 - Type 2 diabetes mellitus with unspecified complications; Z79.4 - senior care (current) use of insulin (4) 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 Management as an JONATHAN. Nephrology following. (5) Hypocalcemia Current Visit: Yes Status: Acute Assessment and plan: Improving calcium levels. Corrected calcium 6.2 Replaced IV, start po supplements (6) Pancytopenia Current Visit: Yes Status: Acute Assessment and plan: Stable, continue to monitor (7) UTI (urinary tract infection) Current Visit: Yes Status: Ruled-out Assessment and plan: Patient started on ceftriaxone for suspected UTI. Her urine culture does not show any pathogens. Abnormal urine analysis findings could be related to nephritis. Antibiotics have been discontinued Qualifiers: Urinary tract infection type: site unspecified Hematuria presence: without hematuria Qualified Code(s): N39.0 - Urinary tract infection, site not specified (8) Nausea and vomiting in adult Current Visit: Yes Status: Acute Assessment and plan: Continue antinausea medications (9) Anemia Current Visit: Yes Status: Chronic Assessment and plan: multifactorial secondary to poor oral intake, and kidney disease. Patient is status post 1 unit of red blood cells. Hemoglobin noted to be today stable. Continue to monitor Qualifiers: Anemia type: unspecified type Qualified Code(s): D64.9 - Anemia, unspecified (10) Obesity (BMI 30-39.9) Current Visit: Yes Status: Chronic - Subjective Interval history: Seen and evaluated at bedside Continues to have nausea, states medications help just a bit, no vomiting Abdominal pain remains unchanged Patient with MH of biopsy proven HSP, CKD, Admitted and being managed for JONATHAN, UTI, Pancytopenia, Nausea/Vomiting Labs today with no remarkable improvement Renal is following - Constitutional Vitals: Temp Pulse Resp BP Pulse Ox 97.8 F 52 15 122/69 94 12/09/16 11:11 12/09/16 11:11 12/09/16 11:11 12/09/16 11:11 12/09/16 11:11 General appearance: Present: cooperative, A&O X 3, morbidly obese, pleasant, no acute distress, answers questions appropriately Exam: VSS Speaks full sentences, not in any form of distress at time of review HEENT: Moist oral mucosa, conjunctiva is clear, anicteric Chest: R anterior upper chest wall with bruising from previous dialysis catheter , CTAB, no added sounds Heart: S1, S2 only, RRR, no m/g/r Abdomen Generalized mild tenderness, no rebound, BS present in all quadrants EXtremities: 1+ bilateral pitting pedal edema, well perfused extremities Internal Medicine: Result - Labs CBC & Chem 7: 12/09/16 08:41 12/09/16 08:41 Labs: Short CBC 12/09/16 Range/Units 08:41 WBC 3.9 L (4.3-11.1) K/mcL Hgb 8.3 L (11.5-15.4) g/dL Hct 25.6 L (35.3-44.9) % Plt Count 98 L (140-400) K/mcL Neutrophils # 2.8 (1.6-8.9) K/mcL BMP 12/09/16 08:41 Sodium 143 Potassium 3.9 Chloride 113 H Carbon Dioxide 21 BUN 60 H Creatinine 4.66 H Glucose 151 H Calcium 5.9 L* Liver Function 12/09/16 Range/Units 08:41 Total Bilirubin 0.5 (0.2-1.2) mg/dL Direct Bilirubin 0.2 (0.0-0.5) mg/dL AST 14 (5-34) Units/L ALT 20 (0-55) Units/L Alkaline Phosphatase 69 (38-126) Units/L Albumin 2.9 L (3.5-5.0) g/dL - ABG Interpretation ABG results: PT/INR, D-dimer PT 11.7 Seconds (9.4-12.1) 12/06/16 16:28 Consult Discharge Plan - Plan Referrals: Brie Ricks DO [Primary Care Provider] - 12/16/16 9:45 am ()
[2016-12-09] MEDS ORDERED: Calcium Acetate 667 MG CAPSULE PO SCH (12:00)
--- NOTE | 2016-12-09 13:10 | Nephrology Progress Note ---
Date of Encounter: 12/09/16 Time of Encounter: 12:15 - Assessment and Plan (1) Henoch-Schonlein purpura Current Visit: Yes Status: Chronic Continue current prednisone regimen. still considering transfer to [facility] if plasmapheresis still needed (2) JONATHAN (acute kidney injury) Current Visit: No Status: Acute SCr slightly improved at 4.66, GFR 10 but not impressively so, will continue IVF for one more day and if no significant improvement, will proceed to C++ PROFESSOR. Pt aware and agrees. UOP documented not impressive Continue to avoid nephrotoxins (3) Anemia Current Visit: Yes Status: Chronic Hgb stable at 8.3, will monitor Qualifiers: Anemia type: unspecified type Qualified Code(s): D64.9 - Anemia, unspecified (4) Hypokalemia Current Visit: Yes Status: Acute Normalized (5) Hypocalcemia Current Visit: Yes Status: Acute Noted, agree with checking PTH and vitamin D levels Agree with repletion per primary team Subjective Interval history: Pt seen and examined still with nausea but improving on phernegan. still has some abdominal discomfort but very vague on intensity. Objective - Vital Signs Vital signs: Vital Signs Temp Pulse Resp BP Pulse Ox 12/09/16 11:11 97.8 F 52 15 122/69 94 12/09/16 11:10 61 12/09/16 07:51 54 92 12/09/16 07:25 97.6 F 54 15 135/77 92 12/09/16 03:45 99.0 F 53 13 147/80 95 12/09/16 01:10 14 136/75 95 12/09/16 00:16 98.0 F 52 16 136/75 92 12/08/16 20:07 97.8 F 57 16 157/87 92 12/08/16 15:25 98.1 F 60 17 167/88 93 12/08/16 13:24 67 92 Intake and Output 12/08/16 12/09/16 12/09/16 23:59 07:59 15:59 Intake Total 240 / 240 1000 / 1000 120 / 120 Output Total 300 / 300 Balance 240 / 240 700 / 700 120 / 120 Intake: IV Fluids 1000 / 1000 KCl 20 mEq in 0.9% Sodium 1000 / 1000 Chloride 20 meq In 1,000 ml @ 75 mls/hr IVC . [id number] [facility] Rx#: [id number] Oral 240 / 240 120 / 120 Output: Catheter 300 / 300 Other: Meal Dinner Breakfast Percent of Meal Consumed 25% Weight 103.9 kg Blood Glucose* 231 95 129 Patient Weight 12/09/16 23:59 Weight 103.9 kg - General Appearance General appearance: Present: well-developed, well-nourished (NAD) EENT: Present: ATNC, mucous membranes moist Neck: Present: no JVD, supple Respiratory: Present: clear (ant bilat) Cardiology: Present: edema (LE bilat), normal S1, normal S2 Gastrointestinal: Present: no tenderness, no guarding, obese Integumentary: Present: warm and dry Neurologic: Present: no focal deficit Musculoskeletal: Present: no deformities Psychiatric: Present: mood/affect appropriate, cooperative - Lab 12/11/16 04:35 12/11/16 04:35 Most recent lab results Calcium 5.9 mg/dL (8.6-10.8) L* 12/09/16 08:41 Phosphorus 5.6 mg/dL (2.3-4.7) H 12/07/16 04:42 Magnesium 1.7 mg/dL (1.6-2.6) 12/07/16 04:42 Urine Creatinine 126 mg/dL 12/08/16 01:15 Urine Total Protein 368 mg/dL (1-14) H 12/08/16 01:15 Consult Discharge Plan - Plan Referrals: Brie Ricks DO [Primary Care Provider] - 12/16/16 9:45 am ()
[2016-12-09] MEDS ORDERED: Albuterol 2.5 MG/3 ML NEBULIZER IH PRN (15:34)
[2016-12-09] MEDS: Ondansetron 4 MG/2 ML VIAL IVP PRN (19:32)
[2016-12-10] MEDS: *HR* Promethazine 25 MG/ML VIAL IVP PRN ×2 (00:10→15:52)
[2016-12-10] MEDS: *HR* Morphine 2 MG/ML SYRINGE IVP PRN (00:12)
[2016-12-10 04:47] LABS: Hemoglobin 7.8 g/dL (11.5-15.4); Immature Granulocytes % 1.5 % (0-4); Immature Platelets 2.3 % (1.1-6.1); Lymphocytes # 0.4 K/mcL (0.6-4.6); Mean Corpuscular HGB Conc 32.5 g/dL (31.6-35.5); Mean Corpuscular Hemoglobin 28.5 pg (28.0-33.3); Mean Corpuscular Volume 87.6 fL (83.0-100.0); Mean Platelet Volume 9.1 fL (9.4-12.4); Monocytes # 0.2 K/mcL (0.0-1.3); Monocytes % 6.6 %; Red Blood Count 2.74 M/mcL (3.82-4.97); Red Cell Distribution Width 14.6 % (11.5-14.5); Segmented Neutrophils % 79.9 %
[2016-12-10 04:51] LABS: Neutrophils # 2.6 K/mcL (1.6-8.9); Platelet Count 93 K/mcL (140-400)
[2016-12-10 04:59] LABS: Potassium 4.9 mEq/L (3.5-4.5)
[2016-12-10 05:02] LABS: Calcium 5.9 mg/dL (8.6-10.8)
[2016-12-10] MEDS: 0.9 % Sodium Chloride w KCl 20 MEQ/1,000 ML MLS IVC SCH (06:37)
[2016-12-10] MEDS: *HR* Heparin 5,000 UNIT/ML VIAL SQ SCH ×2 (06:38→17:18)
[2016-12-10] MEDS ORDERED: Calcium Gluconate 1,000 MG in D5% in Water 100 ML IVPB ONE (07:50)
[2016-12-10] MEDS ORDERED: 0.9 % Sodium Chloride 1,000 ML IVC SCH (08:00)
[2016-12-10] MEDS: Insulin LISPRO 300 UNITS/3 ML VIAL SQ SCH ×4 (08:20→20:19)
--- NOTE | 2016-12-10 09:16 | Internal Med Progress Note ---
Date of Encounter: 12/10/16 Time of Encounter: 09:15 - Assessment and plan (1) Acute generalized abdominal pain Current Visit: Yes Status: Acute Assessment and plan: Improving abdominal pain , no guarding, no rebound, Follow ESR/Complement levels , follow renal recs, continue antiemetics No evidence of bowel ischemia or GI bleed Send FOBT (2) Acute kidney injury superimposed on chronic kidney disease Current Visit: Yes Status: Acute Assessment and plan: No evidence of improvement clinically renal following Patient with edema Possibly a progression of HSP. vs acute exacerbation due to diuretics and gastroenteritis Continue steroids By nephrology patient may need initiation of hemodialysis today INR check for line placement Plan of care discussed with patient, verbalized undestanding (3) Type 2 diabetes mellitus Current Visit: Yes Status: Chronic Assessment and plan: FS acceptable at this time. Continue current insulin regimen. Fingersticks before meals at bedtime. 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 Management as an JONATHAN. Nephrology following. (5) Hypocalcemia Current Visit: Yes Status: Acute Assessment and plan: Improving calcium levels. Corrected calcium 6.2, ionized 0.8 Replaced IV, continue po supplements (6) Pancytopenia Current Visit: Yes Status: Acute Assessment and plan: Stable, continue to monitor (7) UTI (urinary tract infection) Current Visit: Yes Status: Ruled-out Assessment and plan: Patient started on ceftriaxone for suspected UTI. Her urine culture does not show any pathogens. Abnormal urine analysis findings could be related to nephritis. Antibiotics have been discontinued Qualifiers: Urinary tract infection type: site unspecified Hematuria presence: without hematuria Qualified Code(s): N39.0 - Urinary tract infection, site not specified (8) Nausea and vomiting in adult Current Visit: Yes Status: Acute Assessment and plan: Continue antiemetics (9) Anemia Current Visit: Yes Status: Chronic Assessment and plan: multifactorial secondary to poor oral intake, and kidney disease. HB again decreased, no obvious source of bleed Check FOBT Transfuse with RBCS Continue to monitor Qualifiers: Anemia type: unspecified type Qualified Code(s): D64.9 - Anemia, unspecified (10) Obesity (BMI 30-39.9) Current Visit: Yes Status: Chronic Assessment and plan: Lifestyle changes encouraged - Subjective Interval history: Seen and evaluated at bedside Continues to have nausea, states medications help just a bit, no vomiting Abdominal pain persists NO overt bleeding episode, slight decrease in PLT and blood count, possibly dilutional from IVF hydration NO significant change in renal function Patient now having worsening edema of LE, no respiratory symptoms, she is still making urine, positive fluid balance Ionized calcium low, replaced Changed IVF from Saline + K to normal saline, due to increasing potassium Anticipate HD session today, there is no urgent need for HD, no uremic symptoms , pending nephrology eval this a.m STAT INR check for possible catheter placement Check PTH/Vitamin D, Ionized calcium - Constitutional Vitals: Temp Pulse Resp BP Pulse Ox 98.4 F 59 15 140/68 91 12/09/16 23:27 12/09/16 23:27 12/09/16 23:27 12/09/16 23:27 12/09/16 23:27 General appearance: Present: cooperative, A&O X 3, morbidly obese, pleasant, no acute distress, answers questions appropriately - Head Head exam: Present: atraumatic, normocephalic - Eye Eye exam: Present: PERRL, conjuntiva pink, sclera anicteric Pupils: Present: PERRL - Neck Neck exam general surgery: Present: supple, trachea midline. Absent: lymphadenopathy - Respiratory Respiratory exam: Present: CTAB. Absent: accessory muscle use, rales, rhonchi, wheezes - Cardiovascular Cardiovascular exam: Present: RRR, +S1, +S2. Absent: diastolic murmur, gallop, rubs, systolic murmur - GI/Abdominal GI/Abdominal exam: Present: normal bowel sounds, soft, tenderness (vague generalized abdomen), no peritoneal signs. Absent: distended, guarding, rebound - Extremities Exam Extremities exam: Present: pedal edema (2+ bilateral pitting edema), warm, radial pulses palpable and symetrical. Absent: calf tenderness, cyanotic - Neurological Exam Neurological exam: Present: alert, CN II-XII intact, oriented X3, no focal deficits. Absent: pronater drift, facial droop, speech deficit - Skin Skin exam: Present: dry, intact Internal Medicine: Result - Labs CBC & Chem 7: 12/10/16 04:36 12/10/16 04:36 Labs: Short CBC 12/10/16 Range/Units 04:36 WBC 3.3 L (4.3-11.1) K/mcL Hgb 7.8 L (11.5-15.4) g/dL Hct 24.0 L (35.3-44.9) % Plt Count 93 L (140-400) K/mcL Neutrophils # 2.6 (1.6-8.9) K/mcL BMP 12/10/16 04:36 Sodium 142 Potassium 4.9 H D Chloride 115 H Carbon Dioxide 21 BUN 60 H Creatinine 4.52 H Glucose 195 H Calcium 5.9 L* Liver Function 12/09/16 Range/Units 08:41 Total Bilirubin 0.5 (0.2-1.2) mg/dL Direct Bilirubin 0.2 (0.0-0.5) mg/dL AST 14 (5-34) Units/L ALT 20 (0-55) Units/L Alkaline Phosphatase 69 (38-126) Units/L Albumin 2.9 L (3.5-5.0) g/dL - ABG Interpretation ABG results: PT/INR, D-dimer PT 11.7 Seconds (9.4-12.1) 12/06/16 16:28 Consult Discharge Plan - Plan Referrals: Brie Ricks DO [Primary Care Provider] - 12/16/16 9:45 am ()
[2016-12-10] MEDS: predniSONE 20 MG TABLET PO SCH (09:27)
[2016-12-10] MEDS: Cholecalciferol (D-3) 1,000 UNIT TABLET PO SCH (09:27)
[2016-12-10] MEDS: Insulin DETEMIR 100 UNIT/ML X5UNITS SQ SCH ×2 (09:27→20:15)
[2016-12-10] MEDS: Fluticasone Propionate Nasal 50 MCG/SPRAY BOTTLE NS SCH (09:31)
[2016-12-10 09:40] LABS: Prothrombin Time 11.2 Seconds (9.4-12.1)
[2016-12-10] MEDS ORDERED: 0.9 % Sodium Chloride 250 ML ONE ×2 (10:08→10:53)
[2016-12-10] MEDS: Tiotropium 18 MCG inhalation IH SCH (10:53)
--- NOTE | 2016-12-10 13:12 | Nephrology Progress Note ---
Date of Encounter: 12/10/16 Time of Encounter: 12:15 - Assessment and Plan (1) Henoch-Schonlein purpura Current Visit: Yes Status: Chronic Will switch prednisone to solumedrol for now Will check IgA levels Will check ESR and complements pending Will still consider transfer to [facility] if no improvement (2) JONATHAN (acute kidney injury) Current Visit: No Status: Acute SCr not improving much on IVF, will place temporary IJ HD catheter today with IR and porceed with GALLERY MANAGER for volume control Continue to avoid nephrotoxins if possible Urine eosinophils positive, unclear etiology. (3) Anemia Current Visit: Yes Status: Chronic Hgb dropping, agree with transfusion pRBCs per primary team Will check stool guaiac Qualifiers: Anemia type: unspecified type Qualified Code(s): D64.9 - Anemia, unspecified (4) Hypokalemia Current Visit: Yes Status: Acute Potassium now on the high end, can stop supplements (5) Hypocalcemia Current Visit: Yes Status: Acute Low calcium noted but appears mostly asymptomatic, agree with repletion PTH, vitamin D levels pending Subjective Interval history: Pt seen and examined still with nausea but improving on phernegan. She is tolerating clear liquid diet and upgraded to full diet. She still reports abdominal discomfort but very vague on intensity. Objective - Vital Signs Vital signs: Vital Signs Temp Pulse Resp BP Pulse Ox 12/10/16 12:28 63 12/10/16 11:50 98.3 F 63 14 146/79 91 12/10/16 10:50 98.4 F 62 14 131/70 93 12/10/16 10:38 98.4 F 60 18 131/70 92 12/10/16 10:23 98.7 F 62 18 133/73 91 12/10/16 09:10 57 12/10/16 07:50 98.2 F 60 16 136/67 93 12/09/16 23:27 98.4 F 59 15 140/68 91 12/09/16 19:44 98.0 F 16 144/71 12/09/16 16:41 98.1 F 57 16 161/79 93 12/09/16 15:25 64 Intake and Output 12/09/16 12/10/16 12/10/16 23:59 07:59 15:59 Intake Total 1000 / 1000 1000 / 1000 386 / 386 Output Total 400 / 400 Balance 600 / 600 1000 / 1000 386 / 386 Intake: IV Fluids 1000 / 1000 1000 / 1000 146 / 146 KCl 20 mEq in 0.9% Sodium 1000 / 1000 1000 / 1000 146 / 146 Chloride 20 meq In 1,000 ml @ 75 mls/hr IVC . [id number] [facility] Rx#: [id number] Oral 240 / 240 Blood Product 0 / 0 Rbcs Leuko Poor As-3 Ph 0 / 0 Unit [id number] Output: Catheter 400 / 400 Other: Meal Dinner Breakfast Percent of Meal Consumed 5% 50% Blood Glucose* 240 161 155 - General Appearance General appearance: Present: well-developed, well-nourished EENT: Present: ATNC, mucous membranes moist Neck: Present: no JVD, supple Respiratory: Present: clear Cardiology: Present: edema (LE bilat), regular rate, regular rhythm, normal S1, normal S2 Gastrointestinal: Present: no tenderness, no guarding Integumentary: Present: rash (minimal rash on legs bilat), warm and dry Neurologic: Present: no focal deficit Musculoskeletal: Present: no deformities Psychiatric: Present: mood/affect appropriate, cooperative - Lab 12/10/16 04:36 12/10/16 04:36 Most recent lab results Calcium 5.9 mg/dL (8.6-10.8) L* 12/10/16 04:36 Phosphorus 5.6 mg/dL (2.3-4.7) H 12/07/16 04:42 Magnesium 1.7 mg/dL (1.6-2.6) 12/07/16 04:42 Urine Creatinine 126 mg/dL 12/08/16 01:15 Urine Total Protein 368 mg/dL (1-14) H 12/08/16 01:15 Consult Discharge Plan - Plan Referrals: Brie Ricks DO [Primary Care Provider] - 12/16/16 9:45 am ()
[2016-12-10] MEDS: Ondansetron 4 MG/2 ML VIAL IVP PRN ×2 (13:39→20:15)
--- NOTE | 2016-12-10 14:12 | IR Procedure Note ---
Date of procedure: 12/10/16 Consent Obtained: Written consent Timeout: Correct patient and procedure verified, Correct site verified, Time out performed, Skin prep completed Local anesthetic: Lidocaine 1% Indications: HSP, acute on chronic renal insufficiency Procedure Performed: Bedside temp HD catheter placement Site/Technique: RIJV used for access Results/Findings: Working well. CXR ordered Estimated blood loss (cc): 1 Complications: None; Tolerated procedure well Post Procedure Treatment Plan: Monitoring in pts room
[2016-12-10 14:45] LABS: Hepatitis B Surface Antigen Nonreactive (Nonreactive)
[2016-12-10 15:22] LABS: Complement Component 3 95 mg/dL (88-201); Complement Component 4 30 mg/dL (10-40)
[2016-12-10] MEDS: MethylPREDNISolone 40 MG/ML VIAL IVP SCH ×2 (15:46→23:12)
[2016-12-10] MEDS: *HR* OxyCODONE Immed Rel 5 MG TABLET PO PRN ×2 (15:52→21:09)
[2016-12-11 05:02] LABS: Red Cell Distribution Width 14.2 % (11.5-14.5)
[2016-12-11 05:04] LABS: Hematocrit 26.7 % (35.3-44.9); Hemoglobin 8.7 g/dL (11.5-15.4); Immature Granulocytes % 4.5 % (0-4); Immature Platelets 1.6 % (1.1-6.1); Lymphocytes # 0.3 K/mcL (0.6-4.6); Lymphocytes % 9.9 %; Mean Corpuscular HGB Conc 32.6 g/dL (31.6-35.5); Mean Corpuscular Hemoglobin 28.7 pg (28.0-33.3); Mean Corpuscular Volume 88.1 fL (83.0-100.0); Mean Platelet Volume 9.4 fL (9.4-12.4); Monocytes # 0.1 K/mcL (0.0-1.3); Monocytes % 2.1 %; Neutrophils # 2.8 K/mcL (1.6-8.9); Red Blood Count 3.03 M/mcL (3.82-4.97); Segmented Neutrophils % 83.5 %
[2016-12-11 05:05] LABS: Platelet Count 86 K/mcL (140-400)
[2016-12-11] MEDS: *HR* Heparin 5,000 UNIT/ML VIAL SQ SCH ×2 (05:10→15:56)
[2016-12-11 05:16] LABS: Potassium 5.2 mEq/L (3.5-4.5)
[2016-12-11] MEDS ORDERED: Calcium Gluconate 2,000 MG in D5% in Water 100 ML IVPB ONE (05:25)
[2016-12-11 05:47] LABS: Albumin 2.7 g/dL (3.5-5.0); Albumin/Globulin Ratio 1.3 (1.1-2.2); Bilirubin,Direct 0.2 mg/dL (0.0-0.5); Bilirubin,Indirect 0.3 mg/dL (0.0-1.2); Bilirubin,Total 0.5 mg/dL (0.2-1.2); Globulin 2.1 g/dL (2.4-3.5); Total Protein 4.8 g/dL (6.0-8.3)
[2016-12-11] MEDS: Tiotropium 18 MCG inhalation IH SCH (07:59)
[2016-12-11] MEDS: Ondansetron 4 MG/2 ML VIAL IVP PRN ×2 (08:05→23:17)
[2016-12-11] MEDS: Cholecalciferol (D-3) 1,000 UNIT TABLET PO SCH (08:18)
[2016-12-11] MEDS: Fluticasone Propionate Nasal 50 MCG/SPRAY BOTTLE NS SCH (08:19)
[2016-12-11] MEDS: Insulin LISPRO 300 UNITS/3 ML VIAL SQ SCH ×4 (08:21→20:07)
[2016-12-11] MEDS: Insulin DETEMIR 100 UNIT/ML X5UNITS SQ SCH ×2 (08:25→20:06)
[2016-12-11] MEDS ORDERED: 0.9 % Sodium Chloride 250 ML IVC PRN (08:28)
[2016-12-11] MEDS: MethylPREDNISolone 40 MG/ML VIAL IVP SCH ×3 (10:18→23:17)
--- NOTE | 2016-12-11 11:58 | Nephrology Progress Note ---
<Kristy Guerrero - Last Filed: 12/11/16 12:04> Date of Encounter: 12/11/16 Time of Encounter: 11:55 - Assessment and Plan (1) Henoch-Schonlein purpura Current Visit: Yes Status: Chronic Biopsy proven IgA vasculitis. IgA, ESR, complements pending Consider transfer to [facility] if no improvement (2) JONATHAN (acute kidney injury) Current Visit: No Status: Acute HD today x 2 hours Plan for HD again tomorrow for 3 hours UOP 700 Continue to avoid nephrotoxins if possible (3) Anemia Current Visit: Yes Status: Chronic Hgb 8.7 Transfuse per parameters Qualifiers: Anemia type: unspecified type Qualified Code(s): D64.9 - Anemia, unspecified (4) Hypocalcemia Current Visit: Yes Status: Acute Ca+ up slightly to 6.0 PTH 99.0 Vit D pending Continue with CA+ supplements Subjective Principal diagnosis: Henoch-Schonlein purpura, JONATHAN, anemia, hypocalcemia Interval history: Patient seen and examined while in dialysis. No complaints today. Objective - Vital Signs Vital signs: Vital Signs Temp Pulse Resp BP Pulse Ox 12/11/16 11:30 149/76 12/11/16 11:15 165/81 12/11/16 11:00 163/76 12/11/16 10:45 178/84 12/11/16 10:30 172/57 12/11/16 10:15 173/84 12/11/16 10:00 174/86 12/11/16 09:45 98.6 F 18 164/88 12/11/16 08:02 16 93 12/11/16 07:00 52 12/11/16 06:41 97.6 F 58 16 159/80 92 12/11/16 03:07 98.0 F 52 13 162/90 93 12/10/16 23:10 98.0 F 57 12 160/82 91 12/10/16 20:05 98.3 F 57 16 160/74 93 12/10/16 17:23 92 12/10/16 16:07 59 12/10/16 15:45 98.7 F 62 15 153/77 91 12/10/16 14:32 98.4 F 61 14 152/72 92 12/10/16 13:15 98.6 F 59 14 145/73 91 12/10/16 12:28 63 Intake and Output 12/10/16 12/11/16 12/11/16 23:59 07:59 15:59 Intake Total 240 / 240 120 / 120 700 / 700 Output Total 550 / 550 250 / 250 Balance -310 / -310 120 / 120 450 / 450 Intake: IV Fluids 120 / 120 Calcium Gluconate 2,000 120 / 120 MG In Dextrose 5% 100 ML @ 220 mls/hr IVPB ONCE ONE Rx#:[id number] Oral 240 / 240 400 / 400 Intake, Rinseback and 300 / 300 Flushes Output: Catheter 550 / 550 250 / 250 Other: Meal Dinner Breakfast Percent of Meal Consumed 25% 0% Stool Size Small Stool Consistency loose soft Stool Color Brown Yellow # Bowel Movements 1 Weight 109.3 kg Blood Glucose* 196 174 127 Hemodialysis Net Fluid 1339 Removed (mL) Patient Weight 12/11/16 23:59 Weight 109.3 kg - General Appearance General appearance: Present: obese EENT: Present: ATNC, mucous membranes moist, hearing intact, vision intact Neck: Present: supple Cardiology: Present: edema, regular rate, regular rhythm Dialysis Vascular Access: Venous Catheter Gastrointestinal: Present: no tenderness, no guarding Integumentary: Present: warm and dry Neurologic: Present: alert and oriented x3 Psychiatric: Present: mood/affect appropriate, cooperative - Lab 12/11/16 04:35 12/11/16 04:35 Most recent lab results Calcium 6.0 mg/dL (8.6-10.8) L* 12/11/16 04:35 Phosphorus 5.6 mg/dL (2.3-4.7) H 12/07/16 04:42 Magnesium 1.7 mg/dL (1.6-2.6) 12/07/16 04:42 Urine Creatinine 126 mg/dL 12/08/16 01:15 Urine Total Protein 368 mg/dL (1-14) H 12/08/16 01:15 - VTE Documentation of Mechanical Device: Intermittent pneumatic compression device Consult Discharge Plan - Plan Referrals: Brie Ricks DO [Primary Care Provider] - 12/16/16 9:45 am () <Kim Mcwilliams - Last Filed: 12/11/16 23:57> Date of Encounter: 12/11/16 - Assessment and Plan (1) Henoch-Schonlein purpura Current Visit: Yes Status: Chronic (2) JONATHAN (acute kidney injury) Current Visit: No Status: Acute (3) Anemia Current Visit: Yes Status: Chronic Qualifiers: Anemia type: unspecified type Qualified Code(s): D64.9 - Anemia, unspecified (4) Hypokalemia Current Visit: Yes Status: Acute (5) Hypocalcemia Current Visit: Yes Status: Acute Objective - Vital Signs Vital signs: Vital Signs Temp Pulse Resp BP Pulse Ox 12/11/16 23:22 98.2 F 53 18 153/79 92 12/11/16 23:15 52 12/11/16 19:21 98.5 F 51 16 153/65 90 12/11/16 16:00 54 12/11/16 15:36 98.4 F 57 14 162/83 90 12/11/16 12:18 61 12/11/16 12:07 98.2 F 57 12 166/82 92 12/11/16 12:00 98 F 18 168/81 12/11/16 11:45 158/77 12/11/16 11:30 149/76 12/11/16 11:15 165/81 12/11/16 11:00 163/76 12/11/16 10:45 178/84 12/11/16 10:30 172/57 12/11/16 10:15 173/84 12/11/16 10:00 174/86 12/11/16 09:45 98.6 F 18 164/88 12/11/16 08:02 16 93 12/11/16 07:00 52 12/11/16 06:41 97.6 F 58 16 159/80 92 12/11/16 03:07 98.0 F 52 13 162/90 93 Intake and Output 12/11/16 12/11/16 12/11/16 07:59 15:59 23:59 Intake Total 120 / 120 700 / 700 240 / 240 Output Total 1850 / 1850 100 / 100 Balance 120 / 120 -1150 / -1150 140 / 140 Intake: IV Fluids 120 / 120 Calcium Gluconate 2,000 120 / 120 MG In Dextrose 5% 100 ML @ 220 mls/hr IVPB ONCE ONE Rx#:[id number] Oral 400 / 400 240 / 240 Intake, Rinseback and 300 / 300 Flushes Output: Urine 0 / 0 Total Dialysis Output 1600 / 1600 Catheter 250 / 250 100 / 100 Other: Meal Lunch Dinner Percent of Meal Consumed 50% 5% Stool Size Small Stool Consistency loose soft Stool Color Brown Yellow # Bowel Movements 1 Weight 109.3 kg Blood Glucose* 174 152 208 Hemodialysis Net Fluid 1000 Removed (mL) Patient Weight 12/11/16 23:59 Weight 109.3 kg - Lab 12/11/16 04:35 12/11/16 04:35 Most recent lab results Calcium 6.0 mg/dL (8.6-10.8) L* 12/11/16 04:35 Phosphorus 5.6 mg/dL (2.3-4.7) H 12/07/16 04:42 Magnesium 1.7 mg/dL (1.6-2.6) 12/07/16 04:42 Urine Creatinine 126 mg/dL 12/08/16 01:15 Urine Total Protein 368 mg/dL (1-14) H 12/08/16 01:15 - Attending Attestation I examined this patient and my medical decision-making was reviewed with the ASSEMBLER BODY/PA/Advanced Practice Nurse/Resident Physician. I agree with the documented findings, disposition and treatment plan as described except to the extent set forth below. Pt seen and examined on HD, no new complaints. Will continue HD for 2 hrs today with UF goal of 1kg and plan a second session tomorrow for 3hrs. Continue solumedrol for now instead of prednisone at 20mg tid. continue calcium repletion , 2.5 ca dialysate bath should help. Await IgA level, ESR with complements WNL.
[2016-12-11 12:12] LABS: ANA IgG by ELISA NONE DETECTED (None Detected)
--- NOTE | 2016-12-11 14:50 | Internal Med Progress Note ---
Date of Encounter: 12/11/16 Time of Encounter: 14:46 - Assessment and plan (1) Acute generalized abdominal pain Current Visit: Yes Status: Acute Assessment and plan: Resolved N complement levels No evidence of bowel ischemia or GI bleed Send FOBT (2) Acute kidney injury superimposed on chronic kidney disease Current Visit: Yes Status: Acute Assessment and plan: Started on HD, continue mgt per renal (3) Type 2 diabetes mellitus Current Visit: Yes Status: Chronic Assessment and plan: FS acceptable at this time. Continue current insulin regimen. Fingersticks before meals at bedtime. 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 Management as an JONATHAN. Nephrology following. (5) Hypocalcemia Current Visit: Yes Status: Acute Assessment and plan: Improving calcium levels. Corrected calcium 6.2, ionized 0.8 Replaced IV, continue po supplements (6) Pancytopenia Current Visit: Yes Status: Acute Assessment and plan: Stable, continue to monitor (7) UTI (urinary tract infection) Current Visit: Yes Status: Ruled-out Assessment and plan: Patient started on ceftriaxone for suspected UTI. Her urine culture does not show any pathogens. Abnormal urine analysis findings could be related to nephritis. Antibiotics have been discontinued Qualifiers: Urinary tract infection type: site unspecified Hematuria presence: without hematuria Qualified Code(s): N39.0 - Urinary tract infection, site not specified (8) Nausea and vomiting in adult Current Visit: Yes Status: Acute Assessment and plan: Continue antiemetics (9) Anemia Current Visit: Yes Status: Chronic Assessment and plan: multifactorial secondary to poor oral intake, and kidney disease. HB responded to RBCs Check FOBT Continue to monitor Qualifiers: Anemia type: unspecified type Qualified Code(s): D64.9 - Anemia, unspecified (10) Obesity (BMI 30-39.9) Current Visit: Yes Status: Chronic Assessment and plan: Lifestyle changes encouraged - Subjective Interval history: Seen and evaluated at bedside Continues to have nausea, states medications help just a bit, no vomiting Abdominal pain has resolved NO overt bleeding episode, PLT stable s/p first session of HD today 1 L of fluids removed Otherwise clinically stable - Constitutional Vitals: Temp Pulse Resp BP Pulse Ox 98.2 F 61 12 166/82 92 12/11/16 12:07 12/11/16 12:18 12/11/16 12:07 12/11/16 12:07 12/11/16 12:07 General appearance: Present: cooperative, A&O X 3, morbidly obese, pleasant, no acute distress, answers questions appropriately - Head Head exam: Present: atraumatic - Eye Eye exam: Present: PERRL, conjuntiva pink, sclera anicteric Pupils: Present: PERRL - Neck Neck exam general surgery: Present: supple, trachea midline. Absent: lymphadenopathy - Respiratory Respiratory exam: Present: CTAB. Absent: accessory muscle use, rales, rhonchi, wheezes - Cardiovascular Cardiovascular exam: Present: RRR, +S1, +S2. Absent: diastolic murmur, gallop, rubs, systolic murmur - GI/Abdominal GI/Abdominal exam: Present: normal bowel sounds, soft, no peritoneal signs. Absent: distended, tenderness - Extremities Exam Extremities exam: Present: warm, radial pulses palpable and symetrical. Absent : calf tenderness, cyanotic, pedal edema - Neurological Exam Neurological exam: Present: alert, CN II-XII intact, oriented X3, no focal deficits. Absent: pronater drift, facial droop, speech deficit - Skin Skin exam: Present: dry, intact Internal Medicine: Result - Labs CBC & Chem 7: 12/11/16 04:35 12/11/16 04:35 Labs: Short CBC 12/11/16 Range/Units 04:35 WBC 3.3 L (4.3-11.1) K/mcL Hgb 8.7 L (11.5-15.4) g/dL Hct 26.7 L (35.3-44.9) % Plt Count 86 L (140-400) K/mcL Neutrophils # 2.8 (1.6-8.9) K/mcL BMP 12/11/16 04:35 Sodium 138 Potassium 5.2 H Chloride 112 H Carbon Dioxide 20 BUN 57 H Creatinine 4.45 H Glucose 155 H Calcium 6.0 L* Liver Function 12/11/16 Range/Units 04:35 Total Bilirubin 0.5 (0.2-1.2) mg/dL Direct Bilirubin 0.2 (0.0-0.5) mg/dL AST 10 (5-34) Units/L ALT 18 (0-55) Units/L Alkaline Phosphatase 77 (38-126) Units/L Albumin 2.7 L (3.5-5.0) g/dL - ABG Interpretation ABG results: PT/INR, D-dimer PT 11.2 Seconds (9.4-12.1) 12/10/16 09:25 - Impressions Impressions Guidance Needle Placement Ultrasound 12/10/16 00:00 IMPRESSION: Successful temporary hemodialysis catheter placement using ultrasound guidance. This was placed in the bedside given patient's clinical condition and room availability. D/ / Ari Fofana MD / Ari Fofana MD Interpreting Provider: Ari Fofana MD Insertion Non-Tunneled Catheter 12/10/16 00:00 IMPRESSION: Successful temporary hemodialysis catheter placement using ultrasound guidance. This was placed in the bedside given patient's clinical condition and room availability. D/ / 12/11/2016 11:04:18 Ari Fofana MD / melissa Interpreting Provider: Ari Fofana MD Chest X-Ray 12/10/16 14:10 IMPRESSION: Temporary hemodialysis catheter through the right internal jugular vein, with the catheter tip of the right atrium. No associated complication. D/ / Ari Fofana MD / Ari Fofana MD Interpreting Provider: Ari Fofana MD - VTE Documentation of Mechanical Device: Intermittent pneumatic compression device Consult Discharge Plan - Plan Referrals: Brie Ricks DO [Primary Care Provider] - 12/16/16 9:45 am ()
[2016-12-11] MEDS: *HR* OxyCODONE Immed Rel 5 MG TABLET PO PRN (23:17)
[2016-12-12 03:28] LABS: Hematocrit 25.7 % (35.3-44.9); Hemoglobin 8.6 g/dL (11.5-15.4); Immature Granulocytes % 1.3 % (0-4); Lymphocytes # 0.3 K/mcL (0.6-4.6); Lymphocytes % 8.3 %; Mean Corpuscular HGB Conc 33.5 g/dL (31.6-35.5); Mean Corpuscular Hemoglobin 29.2 pg (28.0-33.3); Mean Corpuscular Volume 87.1 fL (83.0-100.0); Mean Platelet Volume 9.8 fL (9.4-12.4); Monocytes # 0.2 K/mcL (0.0-1.3); Red Blood Count 2.95 M/mcL (3.82-4.97); Red Cell Distribution Width 14.4 % (11.5-14.5); Segmented Neutrophils % 86.4 %
[2016-12-12 03:30] LABS: Neutrophils # 3.3 K/mcL (1.6-8.9); Platelet Count 69 K/mcL (140-400)
[2016-12-12 03:37] LABS: Calcium 6.5 mg/dL (8.6-10.8); Potassium 4.9 mEq/L (3.5-4.5)
[2016-12-12] MEDS: *HR* Heparin 5,000 UNIT/ML VIAL SQ SCH ×2 (03:52→16:30)
[2016-12-12] MEDS: Tiotropium 18 MCG inhalation IH SCH (07:56)
[2016-12-12] MEDS: Cholecalciferol (D-3) 1,000 UNIT TABLET PO SCH (08:05)
[2016-12-12] MEDS: Insulin DETEMIR 100 UNIT/ML X5UNITS SQ SCH ×2 (08:37→20:47)
[2016-12-12 08:49] LABS: Immunoglobulin A 171 mg/dL (68-408); Immunoglobulin G 400 mg/dL (768-1632); Immunoglobulin M 20 mg/dL (35-263)
[2016-12-12] MEDS: MethylPREDNISolone 40 MG/ML VIAL IVP SCH ×2 (08:49→16:30)
[2016-12-12] MEDS: Ondansetron 4 MG/2 ML VIAL IVP PRN ×2 (08:53→22:37)
[2016-12-12] MEDS ORDERED: 0.9 % Sodium Chloride 250 ML IVC PRN (08:53)
[2016-12-12] MEDS ORDERED: 0.9 % Sodium Chloride 1,000 ML PRIME SCH (09:00)
[2016-12-12] MEDS: Insulin LISPRO 300 UNITS/3 ML VIAL SQ SCH ×4 (10:01→20:47)
--- NOTE | 2016-12-12 10:03 | Internal Med Progress Note ---
Date of Encounter: 12/12/16 Time of Encounter: 10:03 - Assessment and plan (1) Acute generalized abdominal pain Current Visit: Yes Status: Resolved Assessment and plan: Resolved N complement levels No evidence of bowel ischemia or GI bleed Send FOBT (2) Acute kidney injury superimposed on chronic kidney disease Current Visit: Yes Status: Acute Assessment and plan: Started on HD, continue mgt per renal (3) Type 2 diabetes mellitus Current Visit: Yes Status: Chronic Assessment and plan: FS acceptable at this time. Continue current insulin regimen. Fingersticks before meals at bedtime. 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 Management as an JONATHAN. Nephrology following. (5) Hypocalcemia Current Visit: Yes Status: Acute Assessment and plan: Improving calcium levels. Continue po supplements (6) Pancytopenia Current Visit: Yes Status: Acute Assessment and plan: Stable, continue to monitor (7) UTI (urinary tract infection) Current Visit: Yes Status: Ruled-out Assessment and plan: Patient started on ceftriaxone for suspected UTI. Her urine culture does not show any pathogens. Abnormal urine analysis findings could be related to nephritis. Antibiotics have been discontinued Qualifiers: Urinary tract infection type: site unspecified Hematuria presence: without hematuria Qualified Code(s): N39.0 - Urinary tract infection, site not specified (8) Nausea and vomiting in adult Current Visit: Yes Status: Acute Assessment and plan: Continue antiemetics (9) Anemia Current Visit: Yes Status: Chronic Assessment and plan: multifactorial secondary to poor oral intake, and kidney disease. HB responded to RBCs FOBT negative Continue to monitor Qualifiers: Anemia type: unspecified type Qualified Code(s): D64.9 - Anemia, unspecified (10) Obesity (BMI 30-39.9) Current Visit: Yes Status: Chronic Assessment and plan: Lifestyle changes encouraged - Subjective Interval history: Seen and evaluated at bedside Continues to have nausea, states medications help just a bit, no vomiting Abdominal pain has resolved NO overt bleeding episode, PLT slighlty decreased to 69 today No bleeding For 2nd session of HD today ESR and complement levels WNL Creatinine, calclim,potassium improving Still positive fluid balance - Constitutional Vitals: Temp Pulse Resp BP Pulse Ox 98.0 F 54 18 148/75 92 12/12/16 07:53 12/12/16 07:53 12/12/16 07:56 12/12/16 07:53 12/12/16 07:56 General appearance: Present: cooperative, A&O X 3, morbidly obese, pleasant, no acute distress, answers questions appropriately - Head Head exam: Present: atraumatic, normocephalic - Eye Eye exam: Present: PERRL, conjuntiva pink, sclera anicteric Pupils: Present: PERRL - ENT Additional comments: R IJ catheter, clean and dry dressing - Neck Neck exam general surgery: Present: supple, trachea midline. Absent: lymphadenopathy - Respiratory Respiratory exam: Present: CTAB. Absent: accessory muscle use, rales, rhonchi, wheezes - Cardiovascular Cardiovascular exam: Present: RRR, +S1, +S2. Absent: diastolic murmur, gallop, rubs, systolic murmur - GI/Abdominal GI/Abdominal exam: Present: normal bowel sounds, soft, no peritoneal signs. Absent: distended, tenderness - Extremities Exam Extremities exam: Present: pedal edema, warm, radial pulses palpable and symetrical. Absent: calf tenderness, cyanotic - Neurological Exam Neurological exam: Present: alert, CN II-XII intact, oriented X3, no focal deficits. Absent: pronater drift, facial droop, speech deficit - Skin Skin exam: Present: dry, intact Internal Medicine: Result - Labs CBC & Chem 7: 12/12/16 03:15 12/12/16 03:15 Labs: Short CBC 12/12/16 Range/Units 03:15 WBC 3.8 L (4.3-11.1) K/mcL Hgb 8.6 L (11.5-15.4) g/dL Hct 25.7 L (35.3-44.9) % Plt Count 69 L (140-400) K/mcL Neutrophils # 3.3 (1.6-8.9) K/mcL BMP 12/12/16 03:15 Sodium 139 Potassium 4.9 H Chloride 109 Carbon Dioxide 25 BUN 44 H D Creatinine 3.70 H Glucose 132 H Calcium 6.5 L - ABG Interpretation ABG results: PT/INR, D-dimer PT 11.2 Seconds (9.4-12.1) 12/10/16 09:25 - Impressions Impressions Insertion Non-Tunneled Catheter 12/10/16 00:00 IMPRESSION: Successful temporary hemodialysis catheter placement using ultrasound guidance. This was placed in the bedside given patient's clinical condition and room availability. D/ / 12/11/2016 11:04:18 Ari Fofana MD / melissa Interpreting Provider: Ari Fofana MD - VTE Documentation of Mechanical Device: Intermittent pneumatic compression device Consult Discharge Plan - Plan Referrals: Brie Ricks DO [Primary Care Provider] - 12/16/16 9:45 am ()
--- NOTE | 2016-12-12 11:08 | Nephrology Progress Note ---
Date of Encounter: 12/12/16 Time of Encounter: 11:06 - Assessment and Plan (1) Hypocalcemia Current Visit: Yes Status: Acute Replace calcium as needed. (2) Anemia Current Visit: Yes Status: Chronic No active bleeding. Follow hemoglobin levels. Qualifiers: Anemia type: unspecified type Qualified Code(s): D64.9 - Anemia, unspecified (3) Henoch-Schonlein purpura Current Visit: Yes Status: Chronic Biopsy proven IgA vasculitis. Seems to be improving slightly. Continue current therapy. (4) JONATHAN (acute kidney injury) Current Visit: No Status: Acute Patient with dialysis dependent JONATHAN. Plan for 2nd session today and 3rd session on Thursday. Subjective Principal diagnosis: Henoch-Schonlein purpura, JONATHAN, anemia, hypocalcemia Interval history: Patient seen on dialysis. She has minimal abdominal discomfort. No hematochezia, hematemasis or hemoptysis. She does complain of swollen feet. Objective - Vital Signs Vital signs: Vital Signs Temp Pulse Resp BP Pulse Ox 12/12/16 07:56 18 92 12/12/16 07:53 98.0 F 54 17 148/75 91 12/12/16 07:00 52 12/12/16 03:53 98.1 F 53 16 156/81 91 12/12/16 03:20 50 12/11/16 23:22 98.2 F 53 18 153/79 92 12/11/16 23:15 52 12/11/16 19:21 98.5 F 51 16 153/65 90 12/11/16 16:00 54 12/11/16 15:36 98.4 F 57 14 162/83 90 12/11/16 12:18 61 12/11/16 12:07 98.2 F 57 12 166/82 92 12/11/16 12:00 98 F 18 168/81 12/11/16 11:45 158/77 12/11/16 11:30 149/76 12/11/16 11:15 165/81 Intake and Output 12/11/16 12/12/16 12/12/16 23:59 07:59 15:59 Intake Total 240 / 240 360 / 360 Output Total 100 / 100 Balance 140 / 140 360 / 360 Intake: Oral 240 / 240 360 / 360 Output: Catheter 100 / 100 Other: Meal Dinner Breakfast Percent of Meal Consumed 5% 50% Weight 109.6 kg Blood Glucose* 208 118 Patient Weight 12/12/16 23:59 Weight 109.6 kg - General Appearance General appearance: Present: well-developed, well-nourished, obese EENT: Present: ATNC Neck: Present: supple Respiratory: Present: course breath sounds Cardiology: Present: edema, regular rate Gastrointestinal: Present: no tenderness Integumentary: Present: warm and dry Neurologic: Present: alert and oriented x3 Musculoskeletal: Present: no cyanosis Psychiatric: Present: mood/affect appropriate - Lab 12/12/16 03:15 12/12/16 03:15 Most recent lab results Calcium 6.5 mg/dL (8.6-10.8) L 12/12/16 03:15 Phosphorus 5.6 mg/dL (2.3-4.7) H 12/07/16 04:42 Magnesium 1.7 mg/dL (1.6-2.6) 12/07/16 04:42 Urine Creatinine 126 mg/dL 12/08/16 01:15 Urine Total Protein 368 mg/dL (1-14) H 12/08/16 01:15 - VTE Documentation of Mechanical Device: Intermittent pneumatic compression device Consult Discharge Plan - Plan Referrals: Brie Ricks DO [Primary Care Provider] - 12/16/16 9:45 am ()
[2016-12-12] MEDS ORDERED: 0.9 % Sodium Chloride 2,000 ML ONE (11:13)
[2016-12-12] MEDS: Fluticasone Propionate Nasal 50 MCG/SPRAY BOTTLE NS SCH (13:51)
[2016-12-12] MEDS: *HR* OxyCODONE Immed Rel 5 MG TABLET PO PRN (22:37)
[2016-12-13 05:18] LABS: Hematocrit 25.8 % (35.3-44.9); Hemoglobin 8.5 g/dL (11.5-15.4); Immature Granulocytes % 1.2 % (0-4); Mean Corpuscular HGB Conc 32.9 g/dL (31.6-35.5); Red Cell Distribution Width 14.1 % (11.5-14.5)
[2016-12-13 05:20] LABS: Lymphocytes # 0.2 K/mcL (0.6-4.6); Lymphocytes % 5.6 %; Mean Corpuscular Hemoglobin 28.4 pg (28.0-33.3); Mean Corpuscular Volume 86.3 fL (83.0-100.0); Mean Platelet Volume 9.4 fL (9.4-12.4); Monocytes # 0.2 K/mcL (0.0-1.3); Monocytes % 3.7 %; Neutrophils # 3.7 K/mcL (1.6-8.9); Red Blood Count 2.99 M/mcL (3.82-4.97); Segmented Neutrophils % 89.5 %
[2016-12-13 05:26] LABS: Calcium 6.6 mg/dL (8.6-10.8); Potassium 4.5 mEq/L (3.5-4.5)
[2016-12-13 05:28] LABS: Platelet Count 77 K/mcL (140-400)
[2016-12-13] MEDS: *HR* Heparin 5,000 UNIT/ML VIAL SQ SCH ×2 (06:43→17:18)
[2016-12-13] MEDS: Tiotropium 18 MCG inhalation IH SCH (08:08)
[2016-12-13] MEDS: MethylPREDNISolone 40 MG/ML VIAL IVP SCH ×3 (08:13→17:12)
[2016-12-13] MEDS: Cholecalciferol (D-3) 1,000 UNIT TABLET PO SCH (08:15)
[2016-12-13] MEDS ORDERED: 0.9 % Sodium Chloride 250 ML IVC PRN ×2 (08:18→10:02)
[2016-12-13] MEDS: Ondansetron 4 MG/2 ML VIAL IVP PRN ×3 (08:23→21:40)
[2016-12-13] MEDS: Insulin DETEMIR 100 UNIT/ML X5UNITS SQ SCH ×2 (08:23→21:39)
[2016-12-13] MEDS ORDERED: 0.9 % Sodium Chloride 1,000 ML PRIME SCH (08:30)
[2016-12-13] MEDS: Insulin LISPRO 300 UNITS/3 ML VIAL SQ SCH ×4 (08:35→21:40)
[2016-12-13] MEDS: Fluticasone Propionate Nasal 50 MCG/SPRAY BOTTLE NS SCH (08:36)
[2016-12-13] MEDS ORDERED: 0.9 % Sodium Chloride 1,000 ML ONE (09:26)
[2016-12-13] MEDS ORDERED: Furosemide 40 MG/4 ML VIAL IVP ONE (09:41)
--- NOTE | 2016-12-13 09:41 | Internal Med Progress Note ---
Date of Encounter: 12/13/16 Time of Encounter: 09:39 - Assessment and plan (1) Acute generalized abdominal pain Current Visit: Yes Status: Resolved Assessment and plan: Resolved complement levels slightly diminshed, ESR WNL No evidence of bowel ischemia or GI bleed FOBT negative (2) Acute kidney injury superimposed on chronic kidney disease Current Visit: Yes Status: Acute Assessment and plan: Started on HD, continue mgt per renal (3) Type 2 diabetes mellitus Current Visit: Yes Status: Chronic Assessment and plan: FS acceptable at this time. Continue current insulin regimen. Fingersticks before meals at bedtime. 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 Management as an JONATHAN. Nephrology following. (5) Hypocalcemia Current Visit: Yes Status: Acute Assessment and plan: Improving calcium levels. Continue po supplements (6) Pancytopenia Current Visit: Yes Status: Acute Assessment and plan: Stable, continue to monitor (7) UTI (urinary tract infection) Current Visit: Yes Status: Ruled-out Assessment and plan: Ruled out Qualifiers: Urinary tract infection type: site unspecified Hematuria presence: without hematuria Qualified Code(s): N39.0 - Urinary tract infection, site not specified (8) Nausea and vomiting in adult Current Visit: Yes Status: Acute Assessment and plan: Continue antiemetics (9) Anemia Current Visit: Yes Status: Chronic Assessment and plan: multifactorial secondary to poor oral intake, and kidney disease. HB responded to RBCs FOBT negative Continue to monitor Qualifiers: Anemia type: unspecified type Qualified Code(s): D64.9 - Anemia, unspecified (10) Obesity (BMI 30-39.9) Current Visit: Yes Status: Chronic Assessment and plan: Lifestyle changes encouraged - Subjective Interval history: Seen and evaluated at bedside Patient with IGA vasculitis, CKD 5, pancytopenia She iis making significant improvement, still positive fluid balance, but better No new complains Per renal for HD tomorrow All her parameters and symptoms are improving - Constitutional Vitals: Temp Pulse Resp BP Pulse Ox 98.2 F 57 16 155/79 96 12/13/16 07:38 12/13/16 07:38 12/13/16 08:10 12/13/16 07:38 12/13/16 08:10 General appearance: Present: cooperative, A&O X 3, morbidly obese, pleasant, no acute distress, answers questions appropriately - Head Head exam: Present: atraumatic, normocephalic - Eye Eye exam: Present: PERRL, conjuntiva pink, sclera anicteric Pupils: Present: PERRL - ENT Additional comments: R IV Joe, dressing clean and dry - Neck Neck exam general surgery: Present: supple, trachea midline. Absent: lymphadenopathy - Respiratory Respiratory exam: Present: CTAB. Absent: accessory muscle use, rales, rhonchi, wheezes - Cardiovascular Cardiovascular exam: Present: RRR, +S1, +S2. Absent: diastolic murmur, gallop, rubs, systolic murmur - GI/Abdominal GI/Abdominal exam: Present: normal bowel sounds, soft, no peritoneal signs. Absent: distended, tenderness - Extremities Exam Extremities exam: Present: pedal edema (3+ pitting pedal edema), warm, radial pulses palpable and symetrical. Absent: calf tenderness, cyanotic - Neurological Exam Neurological exam: Present: alert, CN II-XII intact, oriented X3, no focal deficits. Absent: pronater drift, facial droop, speech deficit - Skin Skin exam: Present: dry Internal Medicine: Result - Labs CBC & Chem 7: 12/13/16 05:00 12/13/16 05:00 Labs: Short CBC 12/13/16 Range/Units 05:00 WBC 4.1 L (4.3-11.1) K/mcL Hgb 8.5 L (11.5-15.4) g/dL Hct 25.8 L (35.3-44.9) % Plt Count 77 L (140-400) K/mcL Neutrophils # 3.7 (1.6-8.9) K/mcL BMP 12/13/16 05:00 Sodium 138 Potassium 4.5 Chloride 107 Carbon Dioxide 25 BUN 35 H Creatinine 3.04 H Glucose 241 H Calcium 6.6 L - ABG Interpretation ABG results: PT/INR, D-dimer PT 11.2 Seconds (9.4-12.1) 12/10/16 09:25 - VTE Documentation of Mechanical Device: Intermittent pneumatic compression device Consult Discharge Plan - Plan Referrals: Brie Ricks DO [Primary Care Provider] - 12/16/16 9:45 am ()
--- NOTE | 2016-12-13 11:57 | Nephrology Progress Note ---
Date of Encounter: 12/13/16 Time of Encounter: 11:49 - Assessment and Plan (1) Hypocalcemia Current Visit: Yes Status: Acute Replace calcium as needed. on Tums and vitamin D. Follow labs. (2) Anemia Current Visit: Yes Status: Chronic No active bleeding. Follow hemoglobin levels. Added aranesp. Qualifiers: Anemia type: unspecified type Qualified Code(s): D64.9 - Anemia, unspecified (3) Henoch-Schonlein purpura Current Visit: Yes Status: Chronic Biopsy proven IgA vasculitis. Seems to be improving slightly. Continue current therapy. (4) JONATHAN (acute kidney injury) Current Visit: No Status: Acute Patient with dialysis dependent JONATHAN likely esrd. Plan for 2nd session today and 3rd session on Thursday. Subjective Principal diagnosis: Henoch-Schonlein purpura, JONATHAN, anemia, hypocalcemia Interval history: Patient seen on dialysis. She has no complaint. No hematochezia, hematemasis or hemoptysis. Objective - Vital Signs Vital signs: Vital Signs Temp Pulse Resp BP Pulse Ox 12/13/16 11:35 136/71 12/13/16 11:20 124/72 12/13/16 11:05 139/71 12/13/16 10:50 143/73 12/13/16 10:35 146/76 12/13/16 10:20 150/75 12/13/16 10:05 98.2 F 18 159/76 12/13/16 08:10 16 96 12/13/16 07:38 98.2 F 57 12 155/79 93 12/13/16 04:32 98.2 F 58 10 151/79 95 12/12/16 23:31 98.5 F 60 15 141/70 96 12/12/16 20:25 98.5 F 58 17 129/63 92 12/12/16 16:00 98.2 F 64 18 135/67 90 12/12/16 15:00 58 12/12/16 13:53 98.0 F 53 18 154/99 91 12/12/16 13:15 98.2 F 18 150/74 12/12/16 13:10 149/74 12/12/16 12:55 138/73 12/12/16 12:40 154/99 12/12/16 12:25 150/76 12/12/16 12:10 177/74 12/12/16 11:55 145/75 Intake and Output 12/12/16 12/13/16 12/13/16 23:59 07:59 15:59 Intake Total 170 / 170 500 / 500 Output Total 350 / 350 Balance -180 / -180 500 / 500 Intake: Oral 170 / 170 200 / 200 Intake, Rinseback and 300 / 300 Flushes Output: Catheter 350 / 350 Other: Meal Dinner Breakfast Percent of Meal Consumed 100% 50% Weight 106.5 kg Blood Glucose* 307 230 Hemodialysis Net Fluid 1607 Removed (mL) Patient Weight 12/13/16 23:59 Weight 106.5 kg - General Appearance General appearance: Present: well-developed, well-nourished, obese EENT: Present: ATNC Neck: Present: supple Cardiology: Present: edema, regular rate Integumentary: Present: warm and dry Neurologic: Present: alert and oriented x3 Musculoskeletal: Present: no cyanosis Psychiatric: Present: mood/affect appropriate - Lab 12/13/16 05:00 12/13/16 05:00 Most recent lab results Calcium 6.6 mg/dL (8.6-10.8) L 12/13/16 05:00 Phosphorus 5.6 mg/dL (2.3-4.7) H 12/07/16 04:42 Magnesium 1.7 mg/dL (1.6-2.6) 12/07/16 04:42 Urine Creatinine 126 mg/dL 12/08/16 01:15 Urine Total Protein 368 mg/dL (1-14) H 12/08/16 01:15 - VTE Documentation of Mechanical Device: Intermittent pneumatic compression device Consult Discharge Plan - Plan Referrals: Brie Ricks DO [Primary Care Provider] - 12/16/16 9:45 am ()
[2016-12-14] MEDS: MethylPREDNISolone 40 MG/ML VIAL IVP SCH ×4 (01:55→23:37)
[2016-12-14] MEDS: Insulin LISPRO 300 UNITS/3 ML VIAL SQ SCH ×4 (08:46→19:46)
[2016-12-14] MEDS: *HR* Heparin 5,000 UNIT/ML VIAL SQ SCH ×2 (08:47→18:00)
[2016-12-14] MEDS: Fluticasone Propionate Nasal 50 MCG/SPRAY BOTTLE NS SCH (09:03)
[2016-12-14] MEDS: Insulin DETEMIR 100 UNIT/ML X5UNITS SQ SCH ×2 (09:04→19:47)
--- NOTE | 2016-12-14 10:39 | Internal Med Progress Note ---
Date of Encounter: 12/14/16 Time of Encounter: 10:39 - Assessment and plan (1) Acute generalized abdominal pain Current Visit: Yes Status: Resolved Assessment and plan: Resolved complement levels slightly diminshed, ESR WNL No evidence of bowel ischemia or GI bleed FOBT negative (2) Acute kidney injury superimposed on chronic kidney disease Current Visit: Yes Status: Acute Assessment and plan: Started on HD, continue mgt per renal (3) Type 2 diabetes mellitus Current Visit: Yes Status: Chronic Assessment and plan: FS uncontrolled Increased levemir Monitor Fingersticks ACHS Qualifiers: Diabetes mellitus complication status: with unspecified complications Diabetes mellitus long term care phlebotomist insulin use: with long term care phlebotomist use Qualified Code(s) : E11.8 - Type 2 diabetes mellitus with unspecified complications; Z79.4 - care home (current) use of insulin (4) 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 Management as an JONATHAN. Nephrology following. (5) Hypocalcemia Current Visit: Yes Status: Acute Assessment and plan: Improving calcium levels. Continue po supplements (6) Pancytopenia Current Visit: Yes Status: Acute Assessment and plan: Stable, continue to monitor (7) UTI (urinary tract infection) Current Visit: Yes Status: Ruled-out Assessment and plan: Ruled out Qualifiers: Urinary tract infection type: site unspecified Hematuria presence: without hematuria Qualified Code(s): N39.0 - Urinary tract infection, site not specified (8) Nausea and vomiting in adult Current Visit: Yes Status: Resolved Assessment and plan: Continue antiemetics (9) Anemia Current Visit: Yes Status: Chronic Assessment and plan: multifactorial secondary to poor oral intake, and kidney disease. HB responded to 1 unit RBCs FOBT negative Continue to monitor Qualifiers: Anemia type: unspecified type Qualified Code(s): D64.9 - Anemia, unspecified (10) Obesity (BMI 30-39.9) Current Visit: Yes Status: Chronic Assessment and plan: Lifestyle changes encouraged - Subjective Interval history: Seen and evaluated at bedside Patient with IGA vasculitis, CKD 5, pancytopenia She iis making significant improvement, still positive fluid balance, but better Complains of constipation, otherwise clinical status is ISQ All her parameters and symptoms are improving - Constitutional Vitals: Temp Pulse Resp BP Pulse Ox 97.9 F 54 14 161/81 96 12/14/16 07:51 12/14/16 07:51 12/14/16 07:51 12/14/16 07:51 12/14/16 07:51 General appearance: Present: cooperative, A&O X 3, morbidly obese, pleasant, no acute distress, answers questions appropriately - Head Head exam: Present: atraumatic, normocephalic - Eye Eye exam: Present: PERRL, conjuntiva pink, sclera anicteric Pupils: Present: PERRL - ENT Additional comments: Av marin, wound dressing clean and dry, no surrounding erythema - Respiratory Respiratory exam: Present: CTAB. Absent: accessory muscle use, rales, rhonchi, wheezes - Cardiovascular Cardiovascular exam: Present: RRR, +S1, +S2. Absent: diastolic murmur, gallop, rubs, systolic murmur - GI/Abdominal GI/Abdominal exam: Present: normal bowel sounds, soft, no peritoneal signs. Absent: distended, tenderness - Extremities Exam Extremities exam: Present: pedal edema, warm, radial pulses palpable and symetrical. Absent: calf tenderness, cyanotic - Neurological Exam Neurological exam: Present: alert, CN II-XII intact, oriented X3, no focal deficits. Absent: pronater drift, facial droop, speech deficit - Skin Skin exam: Present: dry, intact Internal Medicine: Result - Labs CBC & Chem 7: 12/13/16 05:00 12/13/16 05:00 - ABG Interpretation ABG results: PT/INR, D-dimer PT 11.2 Seconds (9.4-12.1) 12/10/16 09:25 - VTE Documentation of Mechanical Device: Intermittent pneumatic compression device Consult Discharge Plan - Plan Referrals: Brie Ricks DO [Primary Care Provider] - 12/16/16 9:45 am ()
[2016-12-14] MEDS: Tiotropium 18 MCG inhalation IH SCH (11:17)
--- NOTE | 2016-12-14 12:18 | Nephrology Progress Note ---
Date of Encounter: 12/14/16 Time of Encounter: 12:17 - Assessment and Plan (1) Hypocalcemia Current Visit: Yes Status: Acute Replace calcium as needed. on Tums and vitamin D. Follow labs. (2) Anemia Current Visit: Yes Status: Chronic No active bleeding. Follow hemoglobin levels. Added aranesp. Qualifiers: Anemia type: unspecified type Qualified Code(s): D64.9 - Anemia, unspecified (3) Henoch-Schonlein purpura Current Visit: Yes Status: Chronic Biopsy proven IgA vasculitis. Seems to be improving slightly. Continue current therapy. (4) JONATHAN (acute kidney injury) Current Visit: No Status: Acute Patient with dialysis dependent JONAHTAN likely esrd. Continue dialysis. Will likely need additional UF for volume removal. (5) Constipation Current Visit: Yes Status: Acute Stool softner added. Qualifiers: Qualified Code(s): K59.00 - Constipation, unspecified Subjective Principal diagnosis: Henoch-Schonlein purpura, JONATHAN, anemia, hypocalcemia Interval history: Patient complaining of constipation. She has no other complaint. No hematochezia, hematemasis or hemoptysis. Her abdominal pain is improving. Objective - Vital Signs Vital signs: Vital Signs Temp Pulse Resp BP Pulse Ox 12/14/16 11:58 52 12/14/16 11:48 98.1 F 52 16 165/77 96 12/14/16 11:17 18 98 12/14/16 07:51 97.9 F 54 14 161/81 96 12/14/16 05:06 54 12/14/16 04:10 97.9 F 56 16 144/76 95 12/14/16 02:34 56 12/13/16 23:54 98.3 F 54 16 146/78 95 12/13/16 20:16 98.7 F 58 94 133/73 15 12/13/16 19:30 58 12/13/16 13:45 97.4 F L 20 175/83 12/13/16 13:35 108/76 12/13/16 13:20 129/78 12/13/16 13:05 134/77 12/13/16 12:50 139/72 12/13/16 12:35 136/74 12/13/16 12:20 148/71 Intake and Output 12/13/16 12/14/16 12/14/16 23:59 07:59 15:59 Intake Total 120 / 120 240 / 240 Output Total 400 / 400 50 / 50 Balance -280 / -280 -50 / -50 240 / 240 Intake: Oral 120 / 120 240 / 240 Output: Catheter 400 / 400 50 / 50 Other: Meal Dinner Breakfast Percent of Meal Consumed 100% 10% Weight 103.5 kg Blood Glucose* 215 166 143 Patient Weight 12/14/16 23:59 Weight 103.5 kg - General Appearance General appearance: Present: well-developed, well-nourished, obese EENT: Present: ATNC Respiratory: Present: clear Cardiology: Present: edema, regular rate Gastrointestinal: Present: no tenderness Integumentary: Present: warm and dry Neurologic: Present: alert and oriented x3 Musculoskeletal: Present: no cyanosis Psychiatric: Present: mood/affect appropriate - Lab 12/13/16 05:00 12/13/16 05:00 Most recent lab results Calcium 6.6 mg/dL (8.6-10.8) L 12/13/16 05:00 Phosphorus 5.6 mg/dL (2.3-4.7) H 12/07/16 04:42 Magnesium 1.7 mg/dL (1.6-2.6) 12/07/16 04:42 Urine Creatinine 126 mg/dL 12/08/16 01:15 Urine Total Protein 368 mg/dL (1-14) H 12/08/16 01:15 - VTE Documentation of Mechanical Device: Intermittent pneumatic compression device Consult Discharge Plan - Plan Referrals: Brie Ricks DO [Primary Care Provider] - 12/16/16 9:45 am ()
[2016-12-14] MEDS: Ondansetron 4 MG/2 ML VIAL IVP PRN (16:46)
[2016-12-15 05:07] LABS: Hematocrit 25.7 % (35.3-44.9); Hemoglobin 8.6 g/dL (11.5-15.4); Immature Granulocytes % 0.9 % (0-4); Lymphocytes # 0.3 K/mcL (0.6-4.6); Lymphocytes % 8.9 %; Mean Corpuscular HGB Conc 33.5 g/dL (31.6-35.5); Mean Corpuscular Hemoglobin 28.6 pg (28.0-33.3); Mean Corpuscular Volume 85.4 fL (83.0-100.0); Mean Platelet Volume 9.8 fL (9.4-12.4); Monocytes # 0.1 K/mcL (0.0-1.3); Monocytes % 3.6 %; Neutrophils # 2.9 K/mcL (1.6-8.9); Red Blood Count 3.01 M/mcL (3.82-4.97); Red Cell Distribution Width 14.3 % (11.5-14.5); Segmented Neutrophils % 86.6 %
[2016-12-15 05:14] LABS: Potassium 4.4 mEq/L (3.5-4.5)
[2016-12-15 05:16] LABS: Phosphorous 4.8 mg/dL (2.3-4.7)
[2016-12-15 05:22] LABS: Platelet Count 64 K/mcL (140-400)
[2016-12-15] MEDS: *HR* Heparin 5,000 UNIT/ML VIAL SQ SCH ×2 (05:50→18:05)
[2016-12-15 05:51] LABS: Folate 5.3 ng/mL (7.0-31.4)
[2016-12-15] MEDS ORDERED: 0.9 % Sodium Chloride 250 ML IVC PRN (08:34)
[2016-12-15] MEDS: Insulin DETEMIR 100 UNIT/ML X5UNITS SQ SCH ×2 (08:52→21:04)
[2016-12-15] MEDS: Insulin LISPRO 300 UNITS/3 ML VIAL SQ SCH ×4 (08:53→21:02)
[2016-12-15] MEDS: Fluticasone Propionate Nasal 50 MCG/SPRAY BOTTLE NS SCH (08:54)
[2016-12-15] MEDS ORDERED: *HR* Heparin 10,000 UNIT/10 ML VIAL IV PRN (09:26)
--- NOTE | 2016-12-15 10:14 | Nephrology Progress Note ---
Date of Encounter: 12/15/16 Time of Encounter: 09:50 - Assessment and Plan (1) Acute kidney injury superimposed on chronic kidney disease Current Visit: Yes Status: Acute She had ATN with IgA superimposed on Diabetic Nephropathy based upon the early November renal biopsy. Earlier in November, she required HD and then the ATN clearly improved b/c she was weaned off HD. She then returned last week with N/V/Abd pain along with worsened renal function requiring resumption of HD. She had HD on , Thursday and Thursday. Today (Thursday), the SCr has worsened, which demonstrates that she is not recovering and may be in ATN again. In fact the UA with microscopy that was collected on admission demonstrated granular casts. Arranging HD today and if she is not improving from ATN by Thursday, then I'll arrange for a Permacath (she is not taking ASA or Plavix) and outpatient dialysis-dependent JONATHAN on CKD d/t ATN/HSP IgA vasculititis. Anemia: goal Hgb 10-11. Agree with weekly GWEN. CKD-MBD: agree with Ergo for vit D def and SHPT. Follow a renal protective strategy. Renal diet and low sodium diet. Thank you. 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 (3) Proteinuria Current Visit: Yes Status: Chronic Qualifiers: Proteinuria type: persistent Qualified Code(s): R80.1 - Persistent proteinuria, unspecified (4) Hypertension Current Visit: Yes Status: Chronic Qualifiers: Hypertension type: secondary to other renal disorders Qualified Code(s): I15.1 - Hypertension secondary to other renal disorders; N28.89 - Other specified disorders of kidney and ureter (5) Peripheral edema Current Visit: Yes Status: Acute (6) Vasculitis Current Visit: No Status: Chronic Subjective Principal diagnosis: Henoch-Schonlein purpura, JONATHAN, anemia, hypocalcemia Interval history: Pt was seen/examined. She reported having less N/V and last vomited on Thursday. Affirmed that yesterday she was able to eat/drink fluids. She did not affirm any new major complaints. Objective - Vital Signs Vital signs: Vital Signs Temp Pulse Resp BP Pulse Ox 12/15/16 04:30 52 12/15/16 04:21 97.6 F 53 14 154/72 95 12/14/16 23:40 98.0 F 56 14 152/72 95 12/14/16 20:00 98.0 F 55 14 158/79 95 12/14/16 16:50 98.0 F 53 16 161/85 96 12/14/16 15:55 52 12/14/16 11:58 52 12/14/16 11:48 98.1 F 52 16 165/77 96 12/14/16 11:17 18 98 Intake and Output 12/14/16 12/15/16 12/15/16 23:59 07:59 15:59 Intake Total 480 / 480 120 / 120 Output Total 250 / 250 Balance 480 / 480 -250 / -250 120 / 120 Intake: Oral 480 / 480 120 / 120 Output: Catheter 250 / 250 Other: Meal Dinner Breakfast Percent of Meal Consumed 90% 20% Weight 103.6 kg Blood Glucose* 241 169 Patient Weight 12/15/16 23:59 Weight 103.6 kg - General Appearance General appearance: Present: well-developed, well-nourished, appears started age , obese EENT: Present: ATNC, PERRL, mucous membranes moist Neck: Present: supple Respiratory: Present: clear Cardiology: Present: edema (2-3+ pretibial pitting edema b/l ), normal S1, normal S2 Dialysis Vascular Access: Venous Catheter (RIJ temporary HD catheter appears C/D /I) Gastrointestinal: Present: normoactive bowel sounds, no tenderness, no guarding , obese Integumentary: Present: ulcer (healing small scab/ulcer on the anterior shins. ) , skin tear Neurologic: Present: no focal deficit, no asterixis, alert and oriented x3 Musculoskeletal: Present: no deformities, no erythema, no cyanosis Psychiatric: Present: mood/affect appropriate, cooperative - Lab 12/15/16 04:45 12/15/16 04:45 Most recent lab results Calcium 7.0 mg/dL (8.6-10.8) L 12/15/16 04:45 Phosphorus 4.8 mg/dL (2.3-4.7) H 12/15/16 04:45 Magnesium 1.7 mg/dL (1.6-2.6) 12/07/16 04:42 Urine Creatinine 126 mg/dL 12/08/16 01:15 Urine Total Protein 368 mg/dL (1-14) H 12/08/16 01:15 - VTE Documentation of Mechanical Device: Intermittent pneumatic compression device Consult Discharge Plan - Plan Referrals: Brie Ricks DO [Primary Care Provider] - 12/16/16 9:45 am ()
[2016-12-15] MEDS: Ondansetron 4 MG/2 ML VIAL IVP PRN (10:19)
[2016-12-15] MEDS: Tiotropium 18 MCG inhalation IH SCH (11:32)
--- NOTE | 2016-12-15 12:04 | Internal Med Progress Note ---
Date of Encounter: 12/15/16 Time of Encounter: 12:03 - Assessment and plan (1) Acute generalized abdominal pain Current Visit: Yes Status: Resolved Assessment and plan: Resolved complement levels slightly diminshed, ESR WNL No evidence of bowel ischemia or GI bleed FOBT negative (2) Acute kidney injury superimposed on chronic kidney disease Current Visit: Yes Status: Acute Assessment and plan: Continue HD, other management per renal (3) Type 2 diabetes mellitus Current Visit: Yes Status: Chronic Assessment and plan: FS uncontrolled Increased levemir Monitor Fingersticks ACHS Qualifiers: Diabetes mellitus complication status: with unspecified complications Diabetes mellitus residential insulin use: with residential use Qualified Code(s) : E11.8 - Type 2 diabetes mellitus with unspecified complications; 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 Management as an JONATHAN. Patient has been on solumedrol IV She is taking po now and can be switched to prednsone po Tapering protocol should be discussed with nephrology (5) Hypocalcemia Current Visit: Yes Status: Acute Assessment and plan: Improving calcium levels. Continue po supplements (6) Pancytopenia Current Visit: Yes Status: Acute Assessment and plan: Stable, continue to monitor (7) UTI (urinary tract infection) Current Visit: Yes Status: Ruled-out Assessment and plan: Ruled out Qualifiers: Urinary tract infection type: site unspecified Hematuria presence: without hematuria Qualified Code(s): N39.0 - Urinary tract infection, site not specified (8) Nausea and vomiting in adult Current Visit: Yes Status: Resolved Assessment and plan: Continue antiemetics (9) Anemia Current Visit: Yes Status: Chronic Assessment and plan: multifactorial secondary to poor oral intake, and kidney disease. HB responded to 1 unit RBCs FOBT negative Receiving GWEN with HD, Continue to monitor Qualifiers: Anemia type: unspecified type Qualified Code(s): D64.9 - Anemia, unspecified (10) Obesity (BMI 30-39.9) Current Visit: Yes Status: Chronic Assessment and plan: Lifestyle changes encouraged - Subjective Interval history: Seen and evaluated at bedside Patient with IGA vasculitis, CKD 5, pancytopenia She is making significant improvement, still positive fluid balance, but better s/p HD this a.m - Constitutional Vitals: Temp Pulse Resp BP Pulse Ox 97.9 F 60 16 158/69 96 12/15/16 08:45 12/15/16 08:45 12/15/16 08:45 12/15/16 08:45 12/15/16 08:45 General appearance: Present: cooperative, A&O X 3, morbidly obese, pleasant, no acute distress, answers questions appropriately - Head Head exam: Present: atraumatic, normocephalic - Eye Eye exam: Present: PERRL, conjuntiva pink, sclera anicteric Pupils: Present: PERRL - Neck Neck exam general surgery: Present: supple, trachea midline. Absent: lymphadenopathy - Respiratory Respiratory exam: Present: CTAB. Absent: accessory muscle use, rales, rhonchi, wheezes - Cardiovascular Cardiovascular exam: Present: RRR, +S1, +S2. Absent: diastolic murmur, gallop, rubs, systolic murmur - GI/Abdominal GI/Abdominal exam: Present: normal bowel sounds, soft, no peritoneal signs. Absent: distended, tenderness - Extremities Exam Extremities exam: Present: pedal edema, warm, radial pulses palpable and symetrical. Absent: calf tenderness, cyanotic - Neurological Exam Neurological exam: Present: alert, CN II-XII intact, oriented X3, no focal deficits. Absent: pronater drift, facial droop, speech deficit - Skin Skin exam: Present: dry, intact Internal Medicine: Result - Labs CBC & Chem 7: 12/15/16 04:45 12/15/16 04:45 Labs: Short CBC 12/15/16 Range/Units 04:45 WBC 3.4 L (4.3-11.1) K/mcL Hgb 8.6 L (11.5-15.4) g/dL Hct 25.7 L (35.3-44.9) % Plt Count 64 L (140-400) K/mcL Neutrophils # 2.9 (1.6-8.9) K/mcL BMP 12/15/16 04:45 Sodium 140 Potassium 4.4 Chloride 104 Carbon Dioxide 28 BUN 44 H Creatinine 4.17 H Glucose 180 H Calcium 7.0 L - ABG Interpretation ABG results: PT/INR, D-dimer PT 11.2 Seconds (9.4-12.1) 12/10/16 09:25 - VTE Documentation of Mechanical Device: Intermittent pneumatic compression device Consult Discharge Plan - Plan Referrals: Brie Ricks DO [Primary Care Provider] - 12/16/16 9:45 am ()
[2016-12-15] MEDS ORDERED: 0.9 % Sodium Chloride 2,000 ML ONE (15:14)
[2016-12-15] MEDS: Sennosides/Docusate Sodium TABLET PO SCH (20:56)
[2016-12-16] MEDS: Ondansetron 4 MG/2 ML VIAL IVP PRN ×3 (03:54→20:06)
[2016-12-16 03:58] LABS: Immature Granulocytes % 0.5 % (0-4); Red Cell Distribution Width 14.6 % (11.5-14.5)
[2016-12-16 04:00] LABS: Hematocrit 27.1 % (35.3-44.9); Immature Platelets 1.8 % (1.1-6.1); Lymphocytes # 0.8 K/mcL (0.6-4.6); Lymphocytes % 19.4 %; Mean Corpuscular HGB Conc 33.2 g/dL (31.6-35.5); Mean Corpuscular Hemoglobin 28.6 pg (28.0-33.3); Mean Platelet Volume 9.3 fL (9.4-12.4); Monocytes # 0.3 K/mcL (0.0-1.3); Monocytes % 8.3 %; Neutrophils # 2.8 K/mcL (1.6-8.9); Red Blood Count 3.15 M/mcL (3.82-4.97); Segmented Neutrophils % 70.8 %
[2016-12-16 04:06] LABS: Calcium 7.3 mg/dL (8.6-10.8); Magnesium 1.6 mg/dL (1.6-2.6); Phosphorous 2.9 mg/dL (2.3-4.7); Platelet Count 66 K/mcL (140-400); Potassium 3.8 mEq/L (3.5-4.5)
[2016-12-16] MEDS: *HR* Heparin 5,000 UNIT/ML VIAL SQ SCH (06:16)
[2016-12-16] MEDS: Tiotropium 18 MCG inhalation IH SCH (08:05)
--- NOTE | 2016-12-16 08:37 | Nephrology Progress Note ---
Date of Encounter: 12/16/16 Time of Encounter: 08:32 - Assessment and Plan (1) JONATHAN (acute kidney injury) Current Visit: No Status: Acute Will see what kidney function does tomorrow; if no improvement will place permacath and arrange outpatient HD. NPO tonight; when resumes diet needs a renal diet and fluid restriction of 1.5 liters/day ordered Plan for HD tomorrow UOP 600 Continue to avoid nephrotoxins if possible If patient has to continue HD in outpatient setting she states she lives near [place], so we will arrange a chair time for patient at [facility] (2) Henoch-Schonlein purpura Current Visit: Yes Status: Chronic Biopsy proven IgA vasculitis. (3) Anemia Current Visit: Yes Status: Chronic Hgb 9.0 stable Goal 10-11 Qualifiers: Anemia type: unspecified type Qualified Code(s): D64.9 - Anemia, unspecified (4) Hypocalcemia Current Visit: Yes Status: Acute Ca+ up to 7.3 Continue with CA+ supplements Subjective Principal diagnosis: Henoch-Schonlein purpura, JONATHAN, anemia, hypocalcemia Interval history: Patient seen and examined. Lying in bed eating breakfast; c/o constipation. Objective - Vital Signs Vital signs: Vital Signs Temp Pulse Resp BP Pulse Ox 12/16/16 08:06 16 94 12/16/16 08:00 98.2 F 60 16 167/92 94 12/16/16 04:03 97.9 F 67 16 175/77 95 12/16/16 03:50 57 12/16/16 01:17 97.7 F 65 17 179/82 95 12/15/16 21:28 98 F 61 16 185/87 96 12/15/16 19:53 59 12/15/16 15:15 97.7 F 60 16 149/79 96 12/15/16 14:15 97.7 F 16 149/79 12/15/16 14:05 133/75 12/15/16 13:50 139/75 12/15/16 13:35 142/77 12/15/16 13:20 151/77 12/15/16 13:05 149/73 12/15/16 12:50 148/75 12/15/16 12:35 153/75 12/15/16 12:20 150/81 12/15/16 12:05 147/77 12/15/16 11:50 155/79 12/15/16 11:35 149/82 12/15/16 11:20 157/65 12/15/16 11:05 154/69 12/15/16 10:50 151/76 12/15/16 10:35 97.7 F 16 156/76 12/15/16 08:45 97.9 F 52 16 158/69 96 Intake and Output 12/15/16 12/16/16 12/16/16 23:59 07:59 15:59 Intake Total 120 / 120 Output Total 350 / 350 Balance -230 / -230 Intake: Oral 120 / 120 Output: Urine 50 / 50 Urethral (Esquivel) 50 / 50 Catheter 300 / 300 Other: Meal Dinner Percent of Meal Consumed 20% Weight 103.56 kg Blood Glucose* 201 67 Patient Weight 12/16/16 23:59 Weight 103.56 kg - General Appearance General appearance: Present: obese EENT: Present: ATNC, mucous membranes moist, hearing intact, vision intact Neck: Present: supple Respiratory: Present: clear Cardiology: Present: edema (BLL edema), normal S1, normal S2 Dialysis Vascular Access: Venous Catheter Gastrointestinal: Present: no tenderness, no guarding Integumentary: Present: warm and dry Neurologic: Present: alert and oriented x3 Psychiatric: Present: mood/affect appropriate, cooperative - Lab 12/16/16 03:47 12/16/16 03:47 Most recent lab results Calcium 7.3 mg/dL (8.6-10.8) L 12/16/16 03:47 Phosphorus 2.9 mg/dL (2.3-4.7) 12/16/16 03:47 Magnesium 1.6 mg/dL (1.6-2.6) 12/16/16 03:47 Urine Creatinine 126 mg/dL 12/08/16 01:15 Urine Total Protein 368 mg/dL (1-14) H 12/08/16 01:15 - VTE Documentation of Mechanical Device: Intermittent pneumatic compression device Consult Discharge Plan - Plan Referrals: Brie Ricks DO [Primary Care Provider] - 12/23/16 10:40 am (please follow up as schedule..You will be seeing, Taqueria)
[2016-12-16] MEDS ORDERED: Albuterol 2.5 MG/3 ML NEBULIZER IH PRN (08:47)
[2016-12-16] MEDS: Insulin LISPRO 300 UNITS/3 ML VIAL SQ SCH ×4 (08:56→23:00)
[2016-12-16] MEDS: Sennosides/Docusate Sodium TABLET PO SCH ×2 (09:04→20:06)
[2016-12-16] MEDS: predniSONE 20 MG TABLET PO SCH ×2 (09:04→20:06)
[2016-12-16] MEDS: Fluticasone Propionate Nasal 50 MCG/SPRAY BOTTLE NS SCH (09:09)
[2016-12-16] MEDS: Insulin DETEMIR 100 UNIT/ML X5UNITS SQ SCH ×2 (09:10→23:00)
[2016-12-16] MEDS: NIFEdipine XL (24 HR) 30 MG TAB.ER.24 PO SCH (12:42)
--- NOTE | 2016-12-16 16:17 | Internal Med Progress Note ---
Date of Encounter: 12/16/16 Time of Encounter: 09:20 - Assessment and plan (1) Renal failure Current Visit: Yes Status: Acute Assessment and plan: From IgA nephritis/HSP nephritis. Nephrology following. No dialysis today. Follow renal function tomorrow. Patient will be nothing by mouth overnight in case she needs to have permacatheter placed tomorrow for initiation of outpatient hemodialysis. (2) Acute generalized abdominal pain Current Visit: Yes Status: Resolved (3) Diabetes Current Visit: Yes Status: Chronic Assessment and plan: Blood sugars are lower today due to poor appetite. We will continue to monitor and just insulin regimen accordingly. Qualifiers: Diabetes mellitus type: type 1 Diabetes mellitus complication status: with unspecified complications Qualified Code(s): E10.8 - Type 1 diabetes mellitus with unspecified complications (4) Diarrhea Current Visit: Yes Status: Resolved Qualifiers: Diarrhea type: unspecified type Qualified Code(s): R19.7 - Diarrhea, unspecified (5) Henoch-Schonlein purpura Current Visit: Yes Status: Chronic Assessment and plan: On prednisone. Nephrology following. (6) Hypocalcemia Current Visit: Yes Status: Acute (7) Hypokalemia Current Visit: Yes Status: Acute (8) Pancytopenia Current Visit: Yes Status: Chronic Assessment and plan: Remained stable. We will continue to monitor. (9) Anemia Current Visit: Yes Status: Chronic Assessment and plan: Could be related to HSP, end-stage renal disease. Hemoglobin 9 today. We will continue to monitor Qualifiers: Anemia type: unspecified type Qualified Code(s): D64.9 - Anemia, unspecified - Subjective Interval history: Patient feeling a little bit nauseated. Also complains of constipation although she did have a small bowel movement this morning. No abdominal pain. No fever chills or night sweats. Continues to have poor urine output. - Constitutional Vitals: Temp Pulse Resp BP Pulse Ox 98.1 F 55 17 153/72 95 12/16/16 12:22 12/16/16 15:34 12/16/16 12:22 12/16/16 12:22 12/16/16 12:22 General appearance: Present: cooperative, A&O X 3, morbidly obese, pleasant, no acute distress, answers questions appropriately - Respiratory Respiratory exam: Present: CTAB. Absent: accessory muscle use, rales, rhonchi, wheezes - Cardiovascular Cardiovascular exam: Present: RRR, +S1, +S2. Absent: diastolic murmur, gallop, rubs, systolic murmur - GI/Abdominal GI/Abdominal exam: Present: normal bowel sounds, soft, no peritoneal signs. Absent: distended, tenderness - Extremities Exam Extremities exam: Present: pedal edema, warm, radial pulses palpable and symetrical. Absent: calf tenderness, cyanotic Internal Medicine: Result - Labs CBC & Chem 7: 12/16/16 03:47 12/16/16 03:47 Labs: Short CBC 12/16/16 Range/Units 03:47 WBC 4.0 L (4.3-11.1) K/mcL Hgb 9.0 L (11.5-15.4) g/dL Hct 27.1 L (35.3-44.9) % Plt Count 66 L (140-400) K/mcL Neutrophils # 2.8 (1.6-8.9) K/mcL BMP 12/16/16 03:47 Sodium 142 Potassium 3.8 Chloride 107 Carbon Dioxide 29 BUN 30 H D Creatinine 3.29 H Glucose 80 Calcium 7.3 L - ABG Interpretation ABG results: PT/INR, D-dimer PT 11.2 Seconds (9.4-12.1) 12/10/16 09:25 - VTE Documentation of Mechanical Device: Intermittent pneumatic compression device Consult Discharge Plan - Plan Referrals: Brie Ricks DO [Primary Care Provider] - 12/23/16 10:40 am (please follow up as schedule..You will be seeing, Taqueria) - Attending Attestation This document has been at least partially created by [employer] recognition technology by Dr. Day. Errors in grammar, wording or other phrases may exist. If errors are found after the documentation is signed, they will be addressed individually in the addendum section of this document when appropriate.
[2016-12-17] MEDS: Melatonin 3 MG TABLET PO PRN ×2 (00:02→22:53)
[2016-12-17 04:59] LABS: Hemoglobin 8.5 g/dL (11.5-15.4)
[2016-12-17 05:01] LABS: Hematocrit 24.9 % (35.3-44.9); Immature Granulocytes % 0.4 % (0-4); Immature Platelets 2.4 % (1.1-6.1); Lymphocytes # 0.3 K/mcL (0.6-4.6); Mean Corpuscular HGB Conc 34.1 g/dL (31.6-35.5); Mean Corpuscular Hemoglobin 29.5 pg (28.0-33.3); Mean Corpuscular Volume 86.5 fL (83.0-100.0); Monocytes # 0.1 K/mcL (0.0-1.3); Monocytes % 3.3 %; Red Blood Count 2.88 M/mcL (3.82-4.97); Red Cell Distribution Width 14.5 % (11.5-14.5); Segmented Neutrophils % 84.3 %
[2016-12-17 05:04] LABS: INR 1.1; Prothrombin Time 11.8 Seconds (9.4-12.1)
[2016-12-17 05:07] LABS: Neutrophils # 2.4 K/mcL (1.6-8.9); Platelet Count 60 K/mcL (140-400)
[2016-12-17 05:19] LABS: Calcium 6.8 mg/dL (8.6-10.8); Phosphorous 4.3 mg/dL (2.3-4.7); Potassium 4.5 mEq/L (3.5-4.5)
[2016-12-17] MEDS: Tiotropium 18 MCG inhalation IH SCH (08:10)
[2016-12-17] MEDS: Insulin LISPRO 300 UNITS/3 ML VIAL SQ SCH ×4 (08:11→21:35)
[2016-12-17] MEDS ORDERED: 0.9 % Sodium Chloride 250 ML IVC PRN (08:25)
[2016-12-17] MEDS: Insulin DETEMIR 100 UNIT/ML X5UNITS SQ SCH ×2 (09:19→21:35)
[2016-12-17] MEDS: predniSONE 20 MG TABLET PO SCH ×2 (09:31→21:33)
--- NOTE | 2016-12-17 09:32 | Nephrology Progress Note ---
Date of Encounter: 12/17/16 Time of Encounter: 08:50 - Assessment and Plan (1) Acute kidney injury superimposed on chronic kidney disease Current Visit: Yes Status: Acute She had ATN with IgA superimposed on Diabetic Nephropathy based upon the early November renal biopsy. Earlier in November, she required HD and then the ATN clearly improved b/c she was weaned off HD. She then returned last week with N/V/Abd pain along with worsened renal function requiring resumption of HD. She had HD on , Thursday and Thursday. Today, her SCr has worsened, which demonstrates that she is not recovering and like still in ATN. In fact the UA with microscopy that was collected on admission demonstrated granular casts. I've consulted IR and requested placement of a Permacath. HD to follow today ( Thursday). I've also consulted the SW to arrange for a dialysis chair and also discussed this referral with the outpt [facility] dialysis unit in [place], [place], which appears to be closest to her home. She voiced wanting to find a dialysis unit where the [facility] will be able to continue following and managing her renal care. IgAN: wean down on the prednisone back to admission dosing. A few days ago, I decreased the Solumedrol to Pred 40mg po bid and today will decrease her to 20mg po tid. Anemia: goal Hgb 10-11. Agree with weekly GWEN while hospitalized, but this med is not needed to be prescribed on the d/c summary. We will provide an GWEN at the dialysis unit. CKD-MBD: agree with Ergo for vit D def and SHPT. Follow a renal protective strategy. Renal diet and low sodium diet. Okay to discharge from a nephrology perspective once the Permacath is in place and the has arranged a dialysis chair. Thank you. 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 Qualifiers: Proteinuria type: persistent Qualified Code(s): R80.1 - Persistent proteinuria, unspecified (4) Hypertension Current Visit: Yes Status: Chronic Restarted the Nifedipine and will restart the Lasix today for her LE edema. In a few weeks, depending upon her renal function, then an ARB or CHRISTIAN may be helpful for antiproteinuric effect. Qualifiers: Hypertension type: secondary to other renal disorders Qualified Code(s): I15.1 - Hypertension secondary to other renal disorders; N28.89 - Other specified disorders of kidney and ureter (5) Peripheral edema Current Visit: Yes Status: Acute See HTN. (6) Vasculitis Current Visit: No Status: Chronic See above. Subjective Principal diagnosis: Henoch-Schonlein purpura, JONATHAN, anemia, hypocalcemia Interval history: Pt was seen/examined. She reported having less N/V. NPO this AM. She did not affirm any hemoptysis like signs/symptoms. Her LE rash has not worsened she affirmed. She did not report any new major complaints. Objective - Vital Signs Vital signs: Vital Signs Temp Pulse Resp BP Pulse Ox 12/17/16 08:10 16 95 12/17/16 06:46 98.2 F 59 16 139/77 97 12/17/16 02:44 97.5 F L 59 16 130/60 93 12/16/16 22:46 97.7 F 60 16 151/79 95 12/16/16 19:54 56 12/16/16 18:41 98.0 F 63 15 116/71 95 12/16/16 16:21 97.9 F 60 16 150/84 94 12/16/16 15:34 55 12/16/16 12:22 98.1 F 58 17 153/72 95 Intake and Output 12/16/16 12/17/16 12/17/16 23:59 07:59 15:59 Other: Stool Size Small Stool Consistency formed Stool Characteristics Normal for Patient Stool Color Brown Weight 102.512 kg Blood Glucose* 124 148 Patient Weight 12/17/16 23:59 Weight 102.512 kg - General Appearance General appearance: Present: well-developed, well-nourished, appears started age , obese EENT: Present: ATNC, PERRL, mucous membranes moist Neck: Present: supple Respiratory: Present: clear Cardiology: Present: edema (2+ pitting pretibial edema b/l), normal S1, normal S2 Dialysis Vascular Access: Venous Catheter (RIJ temporary HD catheter was C/D/I) Gastrointestinal: Present: normoactive bowel sounds, no tenderness, no guarding Integumentary: Present: rash (stable and unchanged without surrounding erythema. Scabbing noted on her shins) Neurologic: Present: no focal deficit, no asterixis, alert and oriented x3 Musculoskeletal: Present: no deformities Psychiatric: Present: mood/affect appropriate - Lab 12/17/16 04:50 12/17/16 04:50 Most recent lab results Calcium 6.8 mg/dL (8.6-10.8) L 12/17/16 04:50 Phosphorus 4.3 mg/dL (2.3-4.7) 12/17/16 04:50 Magnesium 1.6 mg/dL (1.6-2.6) 12/16/16 03:47 Urine Creatinine 126 mg/dL 12/08/16 01:15 Urine Total Protein 368 mg/dL (1-14) H 12/08/16 01:15 - VTE Documentation of Mechanical Device: Intermittent pneumatic compression device Consult Discharge Plan - Plan Referrals: Brie Ricks DO [Primary Care Provider] - 12/23/16 10:40 am (please follow up as schedule..You will be seeing, Taqueria)
[2016-12-17] MEDS: NIFEdipine XL (24 HR) 30 MG TAB.ER.24 PO SCH (09:33)
[2016-12-17] MEDS: Fluticasone Propionate Nasal 50 MCG/SPRAY BOTTLE NS SCH (09:34)
[2016-12-17] MEDS: Sennosides/Docusate Sodium TABLET PO SCH ×2 (09:34→21:33)
[2016-12-17] MEDS ORDERED: *HR* FentaNYL (PF) 100 MCG/2 ML VIAL IVP PRN (11:04)
[2016-12-17] MEDS ORDERED: *HR* Midazolam HCl 2 MG/2 ML VIAL IVP PRN (11:04)
[2016-12-17] MEDS ORDERED: ceFAZolin 1,000 MG in D5% in Water 100 ML IVPB SCH (11:04)
[2016-12-17] MEDS ORDERED: Heparin 1,000 UNITS/500 mL NS 500 ML ONE (11:04)
--- NOTE | 2016-12-17 11:05 | Pre-Sedation Evaluation ---
Pre-sedation evaluation - Pre-sedation checklist Date of procedure: 12/17/16 Procedure: permacath placement Recent Vitals: Last Vital Signs Temp 98.4 F 12/17/16 10:15 Pulse 55 12/17/16 10:15 Resp 18 12/17/16 10:15 BP 137/79 12/17/16 10:15 Pulse Ox 97 12/17/16 10:15 H&P (including ROS) documented in medical record: Yes Previous reaction to sedatives/anesthetics: No Dietary Status: NPO after Midnight Airway Assessment: Patient can open mouth completely, TMJ function normal Dentition: full dentition Possible difficult airway: No ASA Classification *see protocol: CLASS II-Mild systemic disease Plan of Care: Pt appropriate candidate for procedure/moderate/conscious sedation , Risks/benefits of procedure/sedation discussed w/ patient/family
[2016-12-17] MEDS ORDERED: 0.9 % Sodium Chloride 500 ML ONE (11:13)
[2016-12-17] MEDS: ceFAZolin 1,000 MG in D5% in Water (Mini-Bag+) 100 ML IVPB SCH ×2 (11:38→11:49)
[2016-12-17] MEDS ORDERED: *HR* Heparin 5,000 UNIT/ML VIAL ONE (11:40)
--- NOTE | 2016-12-17 11:42 | IR Procedure Note ---
Date of procedure: 12/17/16 Consent Obtained: Verbal consent, Written consent Timeout: Correct patient and procedure verified, Correct site verified, Time out performed, Skin prep completed Local anesthetic: Lidocaine 1% Indications: Renal failure Procedure Performed: Tunneled HD catheter placement Site/Technique: Tunneled HD catheter placed in VIR Results/Findings: Catheter in good position Estimated blood loss (cc): 1 Complications: None; Tolerated procedure well Post Procedure Treatment Plan: May use HD catheter now
--- NOTE | 2016-12-17 17:17 | Internal Med Progress Note ---
Date of Encounter: 12/17/16 Time of Encounter: 08:35 - Assessment and plan (1) Renal failure Current Visit: Yes Status: Acute Assessment and plan: From acute kidney injury on chronic kidney disease with HSP Nephritis. On hemodialysis. Permacatheter placement today. Patient will be discharged once she has outpatient dialysis setup. (2) Acute generalized abdominal pain Current Visit: Yes Status: Resolved (3) Diabetes Current Visit: Yes Status: Chronic Assessment and plan: Well-controlled blood sugars. 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 Will slowly continue to wean down to home dosage of 20 mg 3 times a day (6) Hypocalcemia Current Visit: Yes Status: Chronic Assessment and plan: Calcium 6.8 today. Continue oral calcium replacement (7) Hypokalemia Current Visit: Yes Status: Resolved (8) Pancytopenia Current Visit: Yes Status: Chronic Assessment and plan: Remains stable. (9) Anemia Current Visit: Yes Status: Chronic Assessment and plan: Hemoglobin 8.5 today. Continue management per nephrology recommendations Qualifiers: Anemia type: other cause Other causes of anemia: chronic disease, kidney Qualified Code(s): N18.9 - Chronic kidney disease, unspecified; D63.1 - Anemia in chronic kidney disease - Subjective Interval history: Patient feeling better today. No nausea. No pain. Awaiting permanent dialysis catheter placement. She will then be dialyzed today - Constitutional Vitals: Temp Pulse Resp BP Pulse Ox 98.2 F 53 18 120/71 97 12/17/16 14:30 12/17/16 11:38 12/17/16 14:30 12/17/16 16:45 12/17/16 11:38 General appearance: Present: cooperative, A&O X 3, morbidly obese, pleasant, no acute distress, answers questions appropriately - Neck Neck exam general surgery: Present: supple, trachea midline. Absent: lymphadenopathy - Respiratory Respiratory exam: Present: CTAB. Absent: accessory muscle use, rales, rhonchi, wheezes - Cardiovascular Cardiovascular exam: Present: RRR, +S1, +S2. Absent: diastolic murmur, gallop, rubs, systolic murmur - Extremities Exam Extremities exam: Present: pedal edema, warm. Absent: calf tenderness, cyanotic - Neurological Exam Neurological exam: Present: alert, oriented X3, no focal deficits, strengths equal and symetr throughout. Absent: facial droop, speech deficit Internal Medicine: Result - Labs CBC & Chem 7: 12/17/16 04:50 12/17/16 04:50 Labs: Short CBC 12/17/16 Range/Units 04:50 WBC 2.8 L (4.3-11.1) K/mcL Hgb 8.5 L (11.5-15.4) g/dL Hct 24.9 L (35.3-44.9) % Plt Count 60 L (140-400) K/mcL Neutrophils # 2.4 (1.6-8.9) K/mcL BMP 12/17/16 04:50 Sodium 138 Potassium 4.5 Chloride 103 Carbon Dioxide 27 BUN 38 H Creatinine 4.28 H Glucose 146 H Calcium 6.8 L - ABG Interpretation ABG results: PT/INR, D-dimer PT 11.8 Seconds (9.4-12.1) 12/17/16 04:50 - Impressions Impressions Guidance Needle Placement Ultrasound 12/17/16 00:00 IMPRESSION: Successful ultrasound and fluoroscopy guided tunneled hemodialysis catheter placement . D/ / Lavon Guaman MD / Lavon Guaman MD Interpreting Provider: Lavon Guaman MD Insertion Tunneled Catheter 12/17/16 00:00 IMPRESSION: Successful ultrasound and fluoroscopy guided tunneled hemodialysis catheter placement . D/ / Lavon Guaman MD / Lavon Guaman MD Interpreting Provider: Lavon Guaman MD Chest X-Ray 12/17/16 11:57 IMPRESSION: No acute radiographic finding in the chest. RECOMMENDATION: 1. D/ / Oziel Schmidt MD / Oziel Schmidt MD Interpreting Provider: Oziel Schmidt MD - VTE Documentation of Mechanical Device: Intermittent pneumatic compression device Consult Discharge Plan - Plan Referrals: Brie Ricks, [Primary Care Provider] - 12/23/16 10:40 am (please follow up as schedule..You will be seeing, Taqueria) - Attending Attestation This document has been at least partially created by [employer] voice recognition technology by Dr. Day. Errors in grammar, wording or other phrases may exist. If errors are found after the documentation is signed, they will be addressed individually in the addendum section of this document when appropriate.
[2016-12-17] MEDS ORDERED: *HR* Heparin 10,000 UNIT/10 ML VIAL IV PRN (17:55)
[2016-12-17] MEDS ORDERED: 0.9 % Sodium Chloride 2,000 ML ONE (18:13)
[2016-12-18 05:06] LABS: Calcium 7.2 mg/dL (8.6-10.8); Potassium 4.3 mEq/L (3.5-4.5)
[2016-12-18 05:06] LABS: Bilirubin,Urine Small (Negative); Blood,Urine Large (Negative); Clarity,Urine Turbid (Clear); Color,Urine Dark Yellow (Yellow); Glucose,Urine (UA) Normal (Normal); Ketones,Urine Trace mg/dL (Negative); Leukocyte Esterase,Urine Moderate (Negative); Nitrite,Urine Negative (Negative); Protein,Urine >=300 mg/dL (Neg-Trace); Urobilinogen,Urine Normal (Normal)
[2016-12-18 05:09] LABS: Hyaline Casts,Urine None Seen per lpf (None-Few); Squamous Epithelial Cell,Urine Many per lpf (None-Few); WBC,Urine 50-100 per hpf (0-3)
[2016-12-18 05:27] LABS: Granular Casts,Urine Few per lpf (None Seen)
[2016-12-18 05:28] LABS: RBC,Urine 30-50 per hpf (0-3)
[2016-12-18 05:32] LABS: Bacteria,Urine Moderate per hpf (None-Few); Yeast,Urine Few per hpf (None Seen)
--- NOTE | 2016-12-18 08:30 | Nephrology Progress Note ---
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 (3) Anemia Current Visit: Yes Status: Chronic Hgb 8.5 stable Goal 10-11 Qualifiers: Anemia type: other cause Other causes of anemia: chronic disease, kidney Qualified Code(s): N18.9 - Chronic kidney disease, unspecified; D63.1 - Anemia in chronic kidney disease (4) Hypocalcemia Current Visit: Yes Status: Chronic Ca+ 7.2 Continue with CA+ supplements Subjective Principal diagnosis: Henoch-Schonlein purpura, JONATHAN, anemia, hypocalcemia Interval history: Patient seen and examined. States she is feeling well today. Objective - Vital Signs Vital signs: Vital Signs Temp Pulse Resp BP Pulse Ox 12/18/16 07:55 98.4 F 54 16 131/79 97 12/18/16 04:52 98.8 F 54 16 161/81 95 12/18/16 02:34 97.6 F 58 15 154/92 92 12/17/16 23:11 97.9 F 62 16 146/64 93 12/17/16 19:47 98.6 F 67 16 118/72 92 12/17/16 18:38 99.1 F 56 16 152/77 97 12/17/16 18:05 98.2 F 16 138/68 12/17/16 18:00 116/54 12/17/16 17:45 112/63 12/17/16 17:30 110/64 12/17/16 17:15 113/60 12/17/16 17:00 117/63 12/17/16 16:45 120/71 12/17/16 16:30 118/68 12/17/16 16:15 135/63 12/17/16 16:00 119/64 12/17/16 15:45 128/65 12/17/16 15:30 125/67 12/17/16 15:15 130/68 12/17/16 15:00 138/71 12/17/16 14:45 138/68 12/17/16 14:30 98.2 F 18 136/63 12/17/16 11:38 53 13 166/87 97 12/17/16 11:33 53 14 162/81 98 12/17/16 11:31 56 16 156/71 98 12/17/16 11:10 56 14 147/66 12/17/16 10:15 98.4 F 55 18 137/79 97 Intake and Output 12/17/16 12/18/16 12/18/16 23:59 07:59 15:59 Intake Total 300 / 300 0 / 0 Output Total 3625 / 3625 400 / 400 Balance -3325 / -3325 -400 / -400 Intake: Oral 300 / 300 0 / 0 Output: Urine 25 / 25 400 / 400 Total Dialysis Output 3600 / 3600 Other: Weight 97.2 kg Blood Glucose* 215 170 Hemodialysis Net Fluid 3000 Removed (mL) Patient Weight 12/18/16 23:59 Weight 97.2 kg - General Appearance General appearance: Present: well-developed, well-nourished, obese EENT: Present: ATNC, mucous membranes moist, hearing intact, vision intact Neck: Present: supple Respiratory: Present: clear Cardiology: Present: edema, normal S1, normal S2 Dialysis Vascular Access: Venous Catheter Gastrointestinal: Present: no tenderness, no guarding Integumentary: Present: warm and dry Neurologic: Present: alert and oriented x3 Psychiatric: Present: mood/affect appropriate, cooperative - Lab 12/17/16 04:50 12/18/16 04:21 Most recent lab results Calcium 7.2 mg/dL (8.6-10.8) L 12/18/16 04:21 Phosphorus 4.3 mg/dL (2.3-4.7) 12/17/16 04:50 Magnesium 1.6 mg/dL (1.6-2.6) 12/16/16 03:47 Urine Creatinine 126 mg/dL 12/08/16 01:15 Urine Total Protein 368 mg/dL (1-14) H 12/08/16 01:15 - VTE Documentation of Mechanical Device: Intermittent pneumatic compression device Consult Discharge Plan - Plan Referrals: Brie Ricks DO [Primary Care Provider] - 12/23/16 10:40 am (please follow up as schedule..You will be seeing, Keyla.Ayad)
[2016-12-18] MEDS: Tiotropium 18 MCG inhalation IH SCH (08:39)
[2016-12-18] MEDS: Fluticasone Propionate Nasal 50 MCG/SPRAY BOTTLE NS SCH (08:53)
[2016-12-18] MEDS: Insulin DETEMIR 100 UNIT/ML X5UNITS SQ SCH (08:54)
[2016-12-18] MEDS: Insulin LISPRO 300 UNITS/3 ML VIAL SQ SCH ×2 (08:54→12:31)
[2016-12-18] MEDS: Sennosides/Docusate Sodium TABLET PO SCH (08:54)
[2016-12-18] MEDS: predniSONE 20 MG TABLET PO SCH ×2 (08:55→15:02)
[2016-12-18] MEDS: NIFEdipine XL (24 HR) 30 MG TAB.ER.24 PO SCH (08:55)
--- NOTE | 2016-12-18 09:36 | Discharge Summary ---
Date of Encounter: 12/18/16 Time of Encounter: 08:45 - Discharge Diagnosis (1) Renal failure Priority: Primary Status: Acute (2) Acute generalized abdominal pain Priority: Secondary Status: Resolved (3) Diabetes Priority: Secondary Status: Chronic Qualifiers: Diabetes mellitus type: type 1 Diabetes mellitus complication status: with unspecified complications Qualified Code(s): E10.8 - Type 1 diabetes mellitus with unspecified complications (4) Diarrhea Priority: Secondary Status: Resolved Qualifiers: Diarrhea type: unspecified type Qualified Code(s): R19.7 - Diarrhea, unspecified (5) Henoch-Schonlein purpura Priority: Secondary Status: Chronic (6) Hypocalcemia Priority: Secondary Status: Chronic (7) Hypokalemia Priority: Secondary Status: Resolved (8) Pancytopenia Priority: Secondary Status: Chronic (9) Anemia Priority: Secondary Status: Chronic Qualifiers: Anemia type: other cause Other causes of anemia: chronic disease, kidney Qualified Code(s): N18.9 - Chronic kidney disease, unspecified; D63.1 - Anemia in chronic kidney disease (10) Acute kidney injury superimposed on chronic kidney disease Priority: Secondary Status: Acute - Discharge Medications Prescriptions: Calcium Carbonate [Tums] 1,000 mg PO BID #60 tab.chew Carvedilol [Coreg] 12.5 mg PO BID #30 tablet Home Medications: Albuterol Sulfate [Ventolin Hfa] 2 puff IH Q6H PRN 11/10/16 [History] Amitriptyline [Elavil] 25 mg PO DAILY 11/10/16 [History] Cetirizine HCl 10 mg PO DAILY 11/10/16 [History] Fluticasone Propionate Nasal [Flonase] 50 mcg NS DAILY 11/10/16 [History] Insulin ASPART [Novolog Flexpen] 2 - 10 unit SQ TIDWM 11/10/16 [History] Insulin Glargine,Hum.rec.anlog [Lantus Solostar] 35 unit SQ DAILY 11/10/16 [ History] Levothyroxine [Synthroid] 150 mcg PO DAILY 11/10/16 [History] Rosuvastatin [Crestor] 40 mg PO DAILY 11/10/16 [History] Sertraline [Zoloft] 100 mg PO DAILY 11/10/16 [History] Tiotropium [Spiriva] 18 mcg IH DAILY 11/10/16 [History] Buspirone HCl [Buspar] 7.5 mg PO BID 12/07/16 [History] Dapsone 25 mg PO BID 12/07/16 [History] Docusate [Colace] 100 mg PO BID 12/07/16 [History] Ergocalciferol (VITAMIN D2) [Vitamin D2] 50,000 unit PO QWEEK 12/07/16 [History] Famotidine [Pepcid] 40 mg PO DAILY 12/07/16 [History] Losartan Potassium [Cozaar] 50 mg PO DAILY 12/07/16 [History] Mometasone/Formoterol [Dulera 200 Mcg/5 Mcg Inhaler] 2 puff IH BID 12/07/16 [ History] NIFEdipine [Nifedipine ER] 90 mg PO DAILY 12/07/16 [History] Omeprazole [PriLOSEC] 40 mg PO DAILY 12/07/16 [History] PredniSONE [Deltasone] 20 mg PO TID 12/07/16 [History] Calcium Carbonate [Tums] 1,000 mg PO BID #60 tab.chew 12/18/16 [Rx] Carvedilol [Coreg] 12.5 mg PO BID #30 tablet 12/18/16 [Rx] Allergies/Adverse Reactions: Allergies aspirin Allergy (Verified 11/10/16 21:08) Hives Sulfa (Sulfonamide Antibiotics) Allergy (Verified 11/10/16 16:16) Hives Procedures/tests Complete & Pending: Procedures Performed prior 72 hours Category Date Time Status IR 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 [IR] Routine IR 12/17/16 Completed IR us guide needle place [IR] Routine IR 12/17/16 Completed Date of admission: 12/06/16 21:14 Primary care physician: Bebe Pinzon Consults: 12/06/16 21:[address] [Consult to Nutrition] [CONS] Routine Comment: Patient requires education regarding renal diet Consulting Provider: NUTRITION Reason for Dietary Consult: Diet Education 12/06/16 21:33 Consult to Nephrology [CONS] Routine Consulting Provider: Kidney Gwendolyn/MELANY/ELISABETH/PETE Reason for Consult: Patient followed by Pete presents with UTI, GFR of 9, and was dialyzed by [facility] November 12-2016. Call Completed: Yes 12/06/16 22:26 Consult to Lathe Operator Contact Lens [CONS] Routine Comment: Reason for Consult: Patient has uncontrolled DM 12/10/16 12:23 Consult to Interventional Radiology [CONS] Routine Consulting Provider: Radiology Interventional Cols Reason for Consult: temporary IJ HD catheter placement Call Completed: No 12/11/16 08:30 Consult to Dialysis [CONS] ONCE 12/12/16 09:00 Consult to Dialysis [CONS] ONCE 12/13/16 08:30 Consult to Dialysis [CONS] ONCE 12/13/16 09:45 Consult to Dialysis [CONS] ONCE 12/13/16 10:15 Consult to Dialysis [CONS] ONCE 12/15/16 08:45 Consult to Dialysis [CONS] ONCE 12/16/16 10:56 Consult to Occupational Therapy [CONS] Routine Comment: Evaluate, develop and implement POC Reason for Consult: Need evaluation Consult to Physical Therapy [CONS] Routine Comment: Evaluate, develop and implement POC Reason for Consult: Need evaluation 12/17/16 08:22 Consult to Interventional Radiology [CONS] Routine Consulting Provider: Radiology Interventional Cols Reason for Consult: Please evaluate for placement of a Permacath for chronic HD. INR is 1.1. No recent ASA or antiplatelet. Thank you. Call Completed: Yes 12/17/16 08:30 Consult to Dialysis [CONS] ONCE 12/17/16 08:33 Consult to Offset Printer [CONS] Routine Reason for SW Consult: Please arrange for chronic dialysis, re: HD-dependent JONATHAN on CKD with biopsy proven IgA vasculitis and ATN. Thank you. Discharging clinician: Jorge Alberto Day Anticipated date of discharge: 12/18/16 - Patient Status Disposition: Home, Self-Care Condition: Good Functional capacity at discharge: uses cane/walker Overall status at discharge: patient is progressing back to baseline - Discharge Instructions Instructions: Diabetes Mellitus Type 2 in Adults (DC) Follow Up With: Brie Ricks DO [Primary Care Provider] - 12/23/16 10:40 am (please follow up as schedule..You will be seeing, Taqueria) Additional Instructions: Patient will follow up with Nephrology while in Dialysis - Diet and Activity Activity: resume usual activities as tolerated Diet: diabetic diet, low fat, low cholesterol, low salt diet Hospital course: Ms. Haddad is a 61 year old female patient with a history of Henoch-Schonlein purpura with nephritis who had recently been discharged from [facility] after being treated there for the same condition with hemodialysis and discharged home without needing dialysis and return to the ER here with complaints of worsening swelling, nausea or vomiting and diarrhea. She was found to have worsening renal function with decreased urine output. She was placed back on her medication regimen per her discharge instructions by [place] while her renal function was monitored. Her renal function did not improve much in her urine output continued to remain low and so she was started back on hemodialysis temporarily. Her renal function continued to worsen despite this and so the fall she recommends continued hemodialysis as outpatient. Her outpatient dialysis is currently being arranged and patient will be discharged once that is arranged. She will be placed back on prednisone 20 mg 3 times a day and dapsone. She will follow up with nephrology after discharge. She also has hypocalcemia can see me and will take calcium carbonate supplements. Patient also has diabetes and takes insulin and metformin at home. Given her renal dysfunction, I am stopping her metformin. Patient is currently medically clear for discharge. She will be dialyzed through a right IJ tunneled catheter on Thursday schedule - Time Spent with Patient Total time spent providing and/or coordinating discharge services: Greater than 30 minutes (35 min) - Constitutional Vitals: Temp Pulse Resp BP Pulse Ox 98.4 F 54 16 131/79 97 12/18/16 07:55 12/18/16 07:55 12/18/16 07:55 12/18/16 07:55 12/18/16 07:55 General appearance: Present: cooperative, A&O X 3, morbidly obese, pleasant, no acute distress, answers questions appropriately - Neck Neck exam general surgery: Present: supple, trachea midline. Absent: lymphadenopathy - Cardiovascular Cardiovascular exam: Present: RRR, +S1, +S2. Absent: diastolic murmur, gallop, rubs, systolic murmur - GI/Abdominal GI/Abdominal exam: Present: normal bowel sounds, soft, no peritoneal signs. Absent: distended, tenderness - Extremities Exam Extremities exam: Present: warm, radial pulses palpable and symetrical. Absent : calf tenderness, cyanotic, pedal edema - Neurological Exam Neurological exam: Present: alert, oriented X3, no focal deficits. Absent: facial droop, speech deficit - Skin Skin exam: Present: dry, intact - VTE Documentation of Mechanical Device: Intermittent pneumatic compression device - Attending Attestation This document has been at least partially created by [employer]Submit recognition technology by Dr. Day. Errors in grammar, wording or other phrases may exist. If errors are found after the documentation is signed, they will be addressed individually in the addendum section of this document when appropriate.
[2016-12-18 12:01] VITALS: BP 130/71
== END 2016-12-18 16:49 | disposition home or self-care (01) | DRG 469 ==
LOC: 2NNU 15:47 → EMEROO 15:47 → 2NNU 20:53 → SUATTDRO 21:14 → 2ANU 12-15 18:53
PROVIDERS: ADMIT Internal Medicine; ATTEND Internal Medicine
PROC: IRPERMA (2016-12-17 12:00)

== ENCOUNTER 2017-06-23 16:21 | Observation (INO) ==
[2017-06-23] MEDS ORDERED: Ipratropium/Albuterol Neb 3 ML IH ONE (16:31)
[2017-06-23] MEDS ORDERED: predniSONE 20 MG TABLET PO ONE (16:31)
[2017-06-23 16:56] LABS: Basophils % 0.3 %; Eosinophils # 0.3 K/mcL (0.0-0.6); Eosinophils % 5.2 %; Hematocrit 35.5 % (35.3-44.9); Hemoglobin 11.9 g/dL (11.5-15.4); Immature Granulocytes % 0.7 % (0-4); Lymphocytes % 16.6 %; Mean Corpuscular HGB Conc 33.5 g/dL (31.6-35.5); Mean Corpuscular Volume 80.5 fL (83.0-100.0); Mean Platelet Volume 9.3 fL (9.4-12.4); Monocytes # 0.4 K/mcL (0.0-1.3); Monocytes % 6.5 %; Neutrophils # 4.2 K/mcL (1.6-8.9); Platelet Count 187 K/mcL (140-400); Red Blood Count 4.41 M/mcL (3.82-4.97); Red Cell Distribution Width 13.5 % (11.5-14.5); Segmented Neutrophils % 70.7 %
[2017-06-23 17:08] LABS: Calcium 9.1 mg/dL (8.6-10.8); Potassium 3.2 mEq/L (3.5-4.5)
--- NOTE | 2017-06-23 17:12 | Emergency Department Note ---
START Narrative - START START: I examined this patient and my medical decision-making was reviewed with the Resident Physician. I agree with the documented findings, disposition and treatment plan as described except to the extent set forth below. 62 yaer old female with HX of COPD without supplemental oxygen needed presents with cough and productive yellow sputum and states that the has had a bronchitic cough tht is worsening and causing her to have wheezes and bronchoscopams and denies chest pain at this time.. Caden also denies fever but otherwise is feeling faitgued Normal vital signs. Cesar has had pnuemonia in the past but has no tbeen hospialized recently nad does not live in a correction WE will do breathin treatments, steroids herpay and IVF therapy and reassess.
--- NOTE | 2017-06-23 17:13 | Emergency Department Note ---
Disposition Clinical Impression: SOB (shortness of breath) Disposition: Admitted As Inpatient Condition: Good Referrals: Brie Ricks DO [Primary Care Provider] - Forms: ED Satisfaction Letter Time of Disposition: 17:38 General Adult HPI - General Chief complaint: ED Shortness of Breath/Dyspnea Stated complaint: GEOVANI Time Seen by Provider: 06/23/17 16:26 Source: patient Mode of arrival: ambulatory Limitations: no limitations Nursing Notes Reviewed: Yes Vital Signs Reviewed: Yes - History of Present Illness HPI Narrative: 62-year-old female presented to the emergency department with chief complaint of cough, congestion, vomiting and diarrhea. Patient states for the past week she has had increased cough and congestion with productive green sputum. She states she went to her primary care physician today who wanted her to come to the emergency department with concern for pneumonia. The patient has a significant past medical history of asthma, COPD and end-stage renal disease. She is currently receiving dialysis Thursday, Thursday, Thursday. Her vehicle monitor technician is Dr. Freeman. Patient denies any fevers at home. She denies any chest pain. Patient denies having any at home oxygen use. Pain Scale: 9 - Related Data Home Medications Medication Instructions Recorded Confirmed Albuterol Sulfate [Ventolin Hfa] 2 puff IH Q6H PRN 11/10/16 12/07/16 Amitriptyline [Elavil] 25 mg PO DAILY 11/10/16 12/07/16 Cetirizine HCl 10 mg PO DAILY 11/10/16 12/07/16 Fluticasone Propionate Nasal 50 mcg NS DAILY 11/10/16 12/07/16 [Flonase] Insulin ASPART [Novolog Flexpen] 2 - 10 unit SQ TIDWM 11/10/16 12/07/16 Insulin Glargine,Hum.rec.anlog 35 unit SQ DAILY 11/10/16 12/07/16 [Lantus Solostar] Levothyroxine [Synthroid] 150 mcg PO DAILY 11/10/16 12/07/16 Rosuvastatin [Crestor] 40 mg PO DAILY 11/10/16 12/07/16 Sertraline [Zoloft] 100 mg PO DAILY 11/10/16 12/07/16 Tiotropium [Spiriva] 18 mcg IH DAILY 11/10/16 12/07/16 Buspirone HCl [Buspar] 7.5 mg PO BID 12/07/16 12/07/16 Dapsone 25 mg PO BID 12/07/16 12/07/16 Docusate [Colace] 100 mg PO BID 12/07/16 12/07/16 Ergocalciferol (VITAMIN D2) 50,000 unit PO QWEEK 12/07/16 12/07/16 [Vitamin D2] Famotidine [Pepcid] 40 mg PO DAILY 12/07/16 12/07/16 Losartan Potassium [Cozaar] 50 mg PO DAILY 12/07/16 12/07/16 Mometasone/Formoterol [Dulera 200 2 puff IH BID 12/07/16 12/07/16 Mcg/5 Mcg Inhaler] NIFEdipine [Nifedipine ER] 90 mg PO DAILY 12/07/16 12/07/16 Omeprazole [PriLOSEC] 40 mg PO DAILY 12/07/16 12/07/16 PredniSONE [Deltasone] 20 mg PO TID 12/07/16 12/07/16 Previous Rx's Medication Instructions Recorded Calcium Carbonate [Tums] 1,000 mg PO BID #60 tab.chew 12/18/16 Carvedilol [Coreg] 12.5 mg PO BID #30 tablet 12/18/16 Allergies Allergy/AdvReac Type Severity Reaction Status Date / Time aspirin Allergy Hives Verified 06/23/17 16:23 Sulfa (Sulfonamide Allergy Hives Verified 06/23/17 16:23 Antibiotics) All systems ED: reviewed and negative except as stated. Constitutional: Denies: fever, chills Eyes: Reports: as per HPI ENT ED: Reports: as per HPI Cardiovascular: Denies: chest pain, palpitations Respiratory: Reports: cough, dyspnea, wheezes Gastrointestinal: Reports: diarrhea. Denies: abdominal pain Genitourinary: Reports: as per HPI Musculoskeletal: Reports: as per HPI Integumentary: Denies: rash, abrasion Neurological: Reports: as per HPI Psychiatric: Reports: as per HPI Endocrine: Reports: as per HPI Hematological/Lymphatic: Reports: as per HPI Allergic/Immunologic: Reports: as per HPI Past Medical History - Past Medical History Attestation: Yes The following information was validated with the patient. Medical history: Reports: arthritis, asthma, cancer, diabetes, GERD, hyperlipidemia, hypertension, renal disease Surgical history: Reports: appendectomy, cancer surgery (Thyroidectomy due to cancer), cholecystectomy, hysterectomy (Partial/ovaries remain), thyroidectomy Psychiatric history: Reports: anxiety, depression - Social History Smoking Status: Former smoker Smokeless Tobacco Status: No Alcohol use: Reports: none Drug use: Reports: none Physical Exam - General Limitations: no limitations General appearance: alert, in no apparent distress - Head Head exam: atraumatic, normocephalic, normal inspection - Eye Eye exam: Present: normal appearance. Absent: scleral icterus, conjunctival injection - Chest Chest inspection: Present: normal inspection, symmetric chest wall rise. Absent : tenderness, rash - Respiratory Respiratory exam: Present: other (Diffuse rhonchi anterior and posterior bilaterally.) - Cardiovascular Cardiovascular exam: Present: regular rate, normal rhythm, normal heart sounds - Abdominal Exam Abdominal exam: Present: soft, Non-Tender. Absent: distention, guarding, rebound - Extremities Exam Extremities exam: Present: normal inspection, full ROM - Neurological Exam Neurological exam: Present: alert, oriented X3 - Psychiatric Psychiatric exam: Present: normal affect, normal mood - Skin Skin exam: Present: warm, intact Course Course Narrative: 62-year-old female presenting to the emergency department with chief complaint of productive cough and shortness of breath. Patient has COPD. She is alert and oriented 3 in the room. In no respiratory distress at this time. Vital signs stable. We will provide the patient with 3 [id number] DuoNeb times along with oral prednisone. We will complete basic lab work along with a chest x-ray. Disposition pending results. Patient agrees with this plan. - Reevaluation(s) Reevaluation #1: Patient's lab work stable. No increase in white blood cell count. Chest x-ray shows fluid overload. We will provide the patient with 40 of IV Lasix. We will admit the patient at this time. Dr. Day accepts the patient. The patient is alert and oriented 3 in the room with stable vital signs. She agreed to this plan. Vital Signs Temperature 98.1 F 06/23/17 16:23 Pulse Rate 92 06/23/17 16:23 Respiratory Rate 20 06/23/17 16:23 Blood Pressure 127/78 06/23/17 16:23 O2 Sat by Pulse Oximetry 94 06/23/17 16:23 Temperature 98.1 F 06/23/17 16:23 Pulse Rate 92 06/23/17 16:23 Respiratory Rate 20 06/23/17 16:23 Blood Pressure 127/78 06/23/17 16:23 O2 Sat by Pulse Oximetry 94 06/23/17 16:23 Oxygen Delivery Oxygen Delivery Room Air Medical Decision Making - Lab Data Result diagrams: 06/23/17 16:41 06/23/17 16:41 Lab Results 06/23/17 06/23/17 06/23/17 Range/Units 16:41 16:41 16:41 WBC 6.0 (4.3-11.1) K/mcL RBC 4.41 (3.82-4.97) M/mcL Hgb 11.9 (11.5-15.4) g/dL Hct 35.5 (35.3-44.9) % MCV 80.5 L (83.0-100.0) fL MCH 27.0 L (28.0-33.3) pg MCHC 33.5 (31.6-35.5) g/dL RDW 13.5 (11.5-14.5) % Plt Count 187 (140-400) K/mcL MPV 9.3 L (9.4-12.4) fL Immature Gran % 0.7 (0-4) % Seg Neutrophils % 70.7 % Lymphocytes % 16.6 % Monocytes % 6.5 % Eosinophils % 5.2 % Basophils % 0.3 % Neutrophils # 4.2 (1.6-8.9) K/mcL Lymphocytes # 1.0 (0.6-4.6) K/mcL Monocytes # 0.4 (0.0-1.3) K/mcL Eosinophils # 0.3 (0.0-0.6) K/mcL Basophils # 0.0 (0.0-0.2) K/mcL Sodium 138 (136-145) mEq/L Potassium 3.2 L (3.5-4.5) mEq/L Chloride 97 L (98-109) mEq/L Carbon Dioxide 29 (19-29) mEq/L BUN 21 H (7-20) mg/dL Creatinine 3.17 H (0.57-1.11) mg/dL Est GFR ( Amer) 18 L (> 60) Est GFR (Non-Af Amer) 15 L (> 60) BUN/Creatinine Ratio 7 (6-26) Glucose 126 H (70-99) mg/dL Calculated Osmolality 291 (280-300) Lactic Acid 0.8 (0.5-2.2) mmol/L Calcium 9.1 (8.6-10.8) mg/dL Troponin I (0-0.03) ng/mL B-Natriuretic Peptide (0-100) pg/mL 06/23/17 06/23/17 Range/Units 16:41 16:41 WBC (4.3-11.1) K/mcL RBC (3.82-4.97) M/mcL Hgb (11.5-15.4) g/dL Hct (35.3-44.9) % MCV (83.0-100.0) fL MCH (28.0-33.3) pg MCHC (31.6-35.5) g/dL RDW (11.5-14.5) % Plt Count (140-400) K/mcL MPV (9.4-12.4) fL Immature Gran % (0-4) % Seg Neutrophils % % Lymphocytes % % Monocytes % % Eosinophils % % Basophils % % Neutrophils # (1.6-8.9) K/mcL Lymphocytes # (0.6-4.6) K/mcL Monocytes # (0.0-1.3) K/mcL Eosinophils # (0.0-0.6) K/mcL Basophils # (0.0-0.2) K/mcL Sodium (136-145) mEq/L Potassium (3.5-4.5) mEq/L Chloride (98-109) mEq/L Carbon Dioxide (19-29) mEq/L BUN (7-20) mg/dL Creatinine (0.57-1.11) mg/dL Est GFR ( Amer) (> 60) Est GFR (Non-Af Amer) (> 60) BUN/Creatinine Ratio (6-26) Glucose (70-99) mg/dL Calculated Osmolality (280-300) Lactic Acid (0.5-2.2) mmol/L Calcium (8.6-10.8) mg/dL Troponin I 0.02 (0-0.03) ng/mL B-Natriuretic Peptide 48 (0-100) pg/mL
[2017-06-23] MEDS ORDERED: Furosemide Oral Soln 40 MG/4 ML UDC PO SCH (17:30)
[2017-06-23] MEDS ORDERED: Naloxone 0.4 MG/ML INJ IVP PRN ×2 (21:31→21:32)
[2017-06-23] MEDS ORDERED: Ondansetron 4 MG/2 ML VIAL IVP PRN (21:32)
[2017-06-23] MEDS ORDERED: *HR* Promethazine 25 MG/ML VIAL IVP PRN (21:32)
[2017-06-23] MEDS ORDERED: *HR* HYDROcodone/Acet 5/325 mg TABLET PO PRN (21:32)
[2017-06-23] MEDS ORDERED: Acetaminophen 325 MG TABLET PO PRN (21:32)
[2017-06-23] MEDS ORDERED: *HR* Morphine 2 MG/ML SYRINGE IVP PRN (21:32)
[2017-06-23] MEDS ORDERED: cefTRIAXone 1,000 MG in Water for inj. (sterile) 10 ML IVP SCH (22:00)
[2017-06-23] MEDS: Loratadine 10 MG TABLET PO SCH (22:22)
[2017-06-23] MEDS: Furosemide 40 MG/4 ML VIAL IVP SCH (22:23)
[2017-06-23] MEDS: Ipratropium/Albuterol Neb 3 ML IH SCH (23:46)
--- NOTE | 2017-06-23 23:49 | Internal Med History&Physical ---
Date of Encounter: 06/23/17 Time of Encounter: 20:30 Assessment and Plan (1) Acute diastolic (congestive) heart failure Current visit: Yes Status: Acute Place the pt into tele for observation Seems to be pt does have mild acute diastolic CHF exacerbation reviewed CXR my self- showing inc vasuclar congestion and pulm edema - mostly due to CHF exacerbation reviewed 2 D Echo from 11/26 showed preserved LVEF @ 55%, Mild diastolic dysfucntion will check 2 D Echo in AM Started her on Lasix 40mg IV BID Will call Nephro in AM to resumed her scheduled HD place her on electronic device monitor check serial troponin (2) Acute bronchitis Current visit: Yes Status: Acute Her symptoms consistent with bronchitis mostly bacterial will start her on IV Rocephin sent for Sputum cx CXR did not show any infiltrates Qualifiers: Qualified Code(s): J20.9 - Acute bronchitis, unspecified (3) ESRD (end stage renal disease) on dialysis Current visit: Yes Status: Acute Will call Nephro in AM for HD (4) Type 2 diabetes mellitus Current visit: No Status: Chronic Resumed Home regimen Insulin reg 20 U TID + ISS Medium Cont Lantus Qualifiers: Diabetes mellitus complication status: with unspecified complications Diabetes mellitus ad terminal makeup operator insulin use: with prison use Qualified Code(s) : E11.8 - Type 2 diabetes mellitus with unspecified complications; Z79.4 - intermission coordinator (current) use of insulin (5) Hypertension Current visit: No Status: Chronic resumed home med Qualifiers: Hypertension type: secondary to other renal disorders Qualified Code(s): I15.1 - Hypertension secondary to other renal disorders; N28.89 - Other specified disorders of kidney and ureter Internal Medicine - H&P: HPI Chief complaint: Shortness of breath / Chest congestion Admitted From: Emergency Dept Plans for Post Hospital Care: Home History of present illness: Ms. Haddad is a 62 year old female with known PMH of HTN , ESRD on HD M/W/F, Asthma, DM2 GERD HLD, who presented to ER with sore throat, cold and chest congestion from last couple of days. She did have cough with greenish expectoration. Denied any CP. She denied any recent travel or sick contacts at home. She did mention getting HD regularly as scheduled. Denied any smoking. Past Med Surg Social Fam HX - Past Medical History Medical history: arthritis, asthma, cancer, diabetes, GERD, hyperlipidemia, hypertension, renal disease Psychiatric history: anxiety, depression - Past Surgical History Surgical History: appendectomy, cholecystectomy, hysterectomy, thyroidectomy - Social History Smoking Status: Former smoker Smokeless Tobacco Status: No Alcohol use: none Drug use: none - Family History Sister Hx Family Cancer: Yes (Breast) Brother Hx Family Cardiac Disorders: Yes Hx Family Endocrine Disorder: Yes Father Family Member Ethnicity: Non- Living Status: Mother Family Member Ethnicity: Non- Living Status: Hx Family Cardiac Disorders: Yes (Non-Hodgkins lymphoma) Internal Medicine - H&P: Meds Albuterol Sulfate [Ventolin Hfa] 2 puff IH Q6H PRN 11/10/16 [History] Cetirizine HCl 10 mg PO DAILY 11/10/16 [History] Fluticasone Propionate Nasal [Flonase] 2 spr NS DAILY 11/10/16 [History] Insulin ASPART [Novolog Flexpen] 23 - 35 unit SQ TID 11/10/16 [History] Insulin Glargine,Hum.rec.anlog [Lantus Solostar] 40 unit SQ BID 11/10/16 [ History] Levothyroxine [Synthroid] 150 mcg PO DAILY 11/10/16 [History] Rosuvastatin [Crestor] 40 mg PO DAILY 11/10/16 [History] Sertraline [Zoloft] 100 mg PO DAILY 11/10/16 [History] Tiotropium [Spiriva] 18 mcg IH DAILY 11/10/16 [History] Buspirone HCl [Buspar] 7.5 mg PO BID 12/07/16 [History] Ergocalciferol (VITAMIN D2) [Vitamin D2] 50,000 unit PO QWEEK 12/07/16 [History] Mometasone/Formoterol [Dulera 200 Mcg/5 Mcg Inhaler] 2 puff IH BID 12/07/16 [ History] Omeprazole [PriLOSEC] 40 mg PO DAILY 12/07/16 [History] Calcium Carbonate [Tums] 1,000 mg PO BID #60 tab.chew 12/18/16 [Rx] Amitriptyline [Elavil] 50 mg PO HS 06/23/17 [History] Calcium Acetate [Phos-LO] 667 mg PO TIDWM 06/23/17 [History] Carvedilol [Coreg] 25 mg PO BID 06/23/17 [History] Furosemide [Lasix] 40 mg PO DAILY 06/23/17 [History] 3 Allergy/AdvReac Type Severity Reaction Status Date / Time aspirin Allergy Hives Verified 06/23/17 16:23 Sulfa (Sulfonamide Allergy Hives Verified 06/23/17 16:23 Antibiotics) All Systems PM: A 10-system review of systems was performed and is negative for pertinent findings except as documented above in the HPI. Review of systems: All the systems are reviewed everything is benign except the systems and symptoms I mentioned in the history of present illness - Constitutional Vitals: Temp Pulse Resp BP Pulse Ox 98.1 F 101 18 134/70 88 06/23/17 23:10 06/23/17 23:10 06/23/17 23:10 06/23/17 23:10 06/23/17 23:10 General appearance: Present: A&O X 3, no acute distress, answers questions appropriately - Head Head exam: Present: atraumatic, normal inspection - Neck Neck exam general surgery: Present: supple - Respiratory Respiratory exam: Present: decreased breath sounds, rales (mild), wheezes (mild) . Absent: respiratory distress, rhonchi - Cardiovascular Cardiovascular exam: Present: RRR, +S1, +S2. Absent: systolic murmur - GI/Abdominal GI/Abdominal exam: Present: normal bowel sounds, soft. Absent: rebound, rigid, tenderness - Extremities Exam Extremities exam: Absent: calf tenderness, pedal edema, tenderness - Back Exam Back exam: Absent: CVA tenderness (L), CVA tenderness (R) - Neurological Exam Neurological exam: Present: alert, oriented X3 - Psychiatric Psychiatric exam: Present: normal affect, normal mood - Skin Skin exam: Absent: rash Internal Med - H&P Results - Labs CBC & Chem 7: 06/23/17 16:41 06/23/17 16:41 Labs: Cardiac Enzymes 06/23/17 Range/Units 21:47 Troponin I 0.02 (0-0.03) ng/mL
[2017-06-23] MEDS ORDERED: D5% in Water 1,000 ML IVC PRN (23:57)
[2017-06-23] MEDS ORDERED: Dextrose Gel 15 GM PO PRN ×2 (23:57)
[2017-06-23] MEDS ORDERED: *HR* Dextrose 50 % in Water (Syg) 50 ML SYRINGE IVP PRN (23:57)
[2017-06-24 03:42] LABS: Hematocrit 30.4 % (35.3-44.9); Immature Granulocytes % 0.3 % (0-4); Lymphocytes # 0.3 K/mcL (0.6-4.6); Lymphocytes % 8.9 %; Mean Corpuscular HGB Conc 33.6 g/dL (31.6-35.5); Mean Corpuscular Hemoglobin 26.8 pg (28.0-33.3); Mean Corpuscular Volume 79.8 fL (83.0-100.0); Mean Platelet Volume 9.7 fL (9.4-12.4); Monocytes % 1.2 %; Neutrophils # 2.9 K/mcL (1.6-8.9); Platelet Count 156 K/mcL (140-400); Red Blood Count 3.81 M/mcL (3.82-4.97); Red Cell Distribution Width 13.1 % (11.5-14.5); Segmented Neutrophils % 89.6 %
[2017-06-24 03:53] LABS: Hemoglobin 10.2 g/dL (11.5-15.4)
[2017-06-24 03:57] LABS: Calcium 8.3 mg/dL (8.6-10.8); Chol/HDL Ratio 4.5 (0-4.9); Potassium 3.9 mEq/L (3.5-4.5)
[2017-06-24] MEDS: Insulin DETEMIR 100 UNIT/ML X5UNITS SQ SCH ×2 (04:21→08:24)
[2017-06-24] MEDS: Ipratropium/Albuterol Neb 3 ML IH SCH ×4 (04:36→16:30)
[2017-06-24] MEDS: Calcium Acetate 667 MG CAPSULE PO SCH ×3 (08:24→17:47)
[2017-06-24] MEDS: Furosemide 40 MG/4 ML VIAL IVP SCH (08:24)
[2017-06-24] MEDS: Insulin LISPRO 300 UNITS/3 ML VIAL SQ SCH ×3 (08:24→17:34)
[2017-06-24] MEDS: Loratadine 10 MG TABLET PO SCH (08:25)
[2017-06-24] MEDS ORDERED: NON-FORMULARY MEDICATION 1 EACH EACH (Mometasone/Formoterol [Dulera 200 Mcg/5 Mcg Inhaler] IH SCH (09:00)
[2017-06-24] MEDS ORDERED: Fluticasone Propionate Nasal 50 MCG/SPRAY BOTTLE NS SCH (09:00)
[2017-06-24] MEDS ORDERED: NON-FORMULARY MEDICATION 1 EACH EACH (Insulin Aspart [Novolog Flexpen] 20 UNIT) SQ SCH (09:00)
[2017-06-24 10:46] LABS: Hepatitis B Surface Antigen Nonreactive (Nonreactive)
[2017-06-24] MEDS ORDERED: *HR* Heparin 10,000 UNIT/10 ML VIAL IV PRN (11:17)
[2017-06-24] MEDS ORDERED: 0.9 % Sodium Chloride 250 ML IVC PRN (11:17)
[2017-06-24] MEDS ORDERED: 0.9 % Sodium Chloride 1,000 ML PRIME SCH (11:30)
[2017-06-24] MEDS ORDERED: 0.9 % Sodium Chloride 2,000 ML ONE (11:58)
--- NOTE | 2017-06-24 13:56 | Discharge Summary ---
Date of Encounter: 06/24/17 Time of Encounter: 12:15 - Discharge Diagnosis (1) Acute diastolic (congestive) heart failure Priority: Primary Status: Acute (2) Acute bronchitis Priority: Secondary Status: Acute Qualifiers: Bronchitis organism: unspecified organism Qualified Code(s): J20.9 - Acute bronchitis, unspecified (3) ESRD (end stage renal disease) on dialysis Priority: Secondary Status: Chronic (4) Hypertension Priority: Secondary Status: Chronic Qualifiers: Hypertension type: secondary to other renal disorders Qualified Code(s): I15.1 - Hypertension secondary to other renal disorders; N28.89 - Other specified disorders of kidney and ureter (5) Type 2 diabetes mellitus Priority: Secondary Status: Chronic Qualifiers: Diabetes mellitus complication status: with unspecified complications Diabetes mellitus care home insulin use: with terminal operations supervisor use Qualified Code(s) : E11.8 - Type 2 diabetes mellitus with unspecified complications; Z79.4 - extermination inspector (current) use of insulin - Discharge Medications Prescriptions: GuaiFENesin Liq [Robitussin Liq] 200 mg PO Q6HR #200 mls Azithromycin [Azithromycin 6-Tab Pack] 250 mg PO PER PKG DI #6 tab Home Medications: Albuterol Sulfate [Ventolin Hfa] 2 puff IH Q6H PRN 11/10/16 [History] Cetirizine HCl 10 mg PO DAILY 11/10/16 [History] Fluticasone Propionate Nasal [Flonase] 2 spr NS DAILY 11/10/16 [History] Insulin ASPART [Novolog Flexpen] 23 - 35 unit SQ TID 11/10/16 [History] Insulin Glargine,Hum.rec.anlog [Lantus Solostar] 40 unit SQ BID 11/10/16 [ History] Levothyroxine [Synthroid] 150 mcg PO DAILY 11/10/16 [History] Rosuvastatin [Crestor] 40 mg PO DAILY 11/10/16 [History] Sertraline [Zoloft] 100 mg PO DAILY 11/10/16 [History] Tiotropium [Spiriva] 18 mcg IH DAILY 11/10/16 [History] Buspirone HCl [Buspar] 7.5 mg PO BID 12/07/16 [History] Ergocalciferol (VITAMIN D2) [Vitamin D2] 50,000 unit PO QWEEK 12/07/16 [History] Mometasone/Formoterol [Dulera 200 Mcg/5 Mcg Inhaler] 2 puff IH BID 12/07/16 [ History] Omeprazole [PriLOSEC] 40 mg PO DAILY 12/07/16 [History] Calcium Carbonate [Tums] 1,000 mg PO BID #60 tab.chew 12/18/16 [Rx] Amitriptyline [Elavil] 50 mg PO HS 06/23/17 [History] Calcium Acetate [Phos-LO] 667 mg PO TIDWM 06/23/17 [History] Carvedilol [Coreg] 25 mg PO BID 06/23/17 [History] Furosemide [Lasix] 40 mg PO DAILY 06/23/17 [History] Azithromycin [Azithromycin 6-Tab Pack] 250 mg PO PER PKG DI #6 tab 06/24/17 [Rx] GuaiFENesin Liq [Robitussin Liq] 200 mg PO Q6HR #200 mls 06/24/17 [Rx] Allergies/Adverse Reactions: 3 Allergy/AdvReac Type Severity Reaction Status Date / Time aspirin Allergy Hives Verified 06/23/17 16:23 Sulfa (Sulfonamide Allergy Hives Verified 06/23/17 16:23 Antibiotics) Procedures/tests Complete & Pending: Procedures Performed prior 72 hours Category Date Time Status EV echocardiogram Routine Y 06/24/17 21:37 Completed Date of admission: 06/23/17 17:51 Primary care physician: Bebe Pinzon Consults: 06/23/17 19:07 Consult to Nutrition [CONS] Routine Comment: Consulting Provider: NUTRITION Reason for Dietary Consult: MST Score 06/23/17 21:33 Consult to Occupational Therapy [CONS] Routine Comment: Evaluate, develop and implement POC Reason for Consult: physical deconditioning Consult to Physical Therapy [CONS] Routine Comment: Evaluate, develop and implement POC Reason for Consult: physical deconditioning 06/23/17 21:38 Consult to Nephrology [CONS] Routine Consulting Provider: Kidney Gwendolyn/MELANY/ELISABETH/DUGLAS Reason for Consult: Known ESRD due for HD In AM Call Completed: No 06/24/17 11:30 Consult to Dialysis [CONS] ONCE Discharging clinician: Jorge Alberto Day Anticipated date of discharge: 06/24/17 - Patient Status Disposition: Home, Self-Care Condition: Good Functional capacity at discharge: uses cane/walker Overall status at discharge: patient is progressing back to baseline - Discharge Instructions Instructions: Heart Failure (DC) Follow Up With: Brie Ricks DO [Primary Care Provider] - 06/30/17 1:15 pm (in 1 week) - Diet and Activity Activity: increase activity as tolerated Diet: low fat, low cholesterol, low salt diet, other (Leg restriction to 1.8 L per 24 hrs) Hospital course: Ms. Haddad is a 62 year old female patient with history of end-stage renal disease, congestive heart failure and diabetes was hospitalized here after presenting to the ER with complaints of shortness of breath. She appeared to have pulmonary congestion on chest x-ray and so was treated with IV Lasix. She has also undergone hemodialysis today and is now doing much better. She is clinically stable for discharge home. She is advised to monitor her weight closely and also to stay on a fluid restriction diet. She was also diagnosed with acute bronchitis and will complete a short course of antibiotics with azithromycin. - Time Spent with Patient Total time spent providing and/or coordinating discharge services: Greater than 30 minutes (32 min) - Constitutional Vitals: Temp Pulse Resp BP Pulse Ox 97.4 F L 68 16 129/67 100 06/24/17 11:29 06/24/17 11:29 06/24/17 11:29 06/24/17 11:29 06/24/17 11:29 General appearance: Present: A&O X 3, no acute distress, answers questions appropriately - Respiratory Respiratory exam: Present: CTAB. Absent: accessory muscle use, rales, rhonchi, wheezes - Cardiovascular Cardiovascular exam: Present: RRR, +S1, +S2. Absent: diastolic murmur, gallop, rubs, systolic murmur - GI/Abdominal GI/Abdominal exam: Present: normal bowel sounds, soft, no peritoneal signs. Absent: distended, tenderness - Extremities Exam Extremities exam: Present: warm, radial pulses palpable and symmetrical. Absent : calf tenderness, cyanotic, pedal edema - Neurological Exam Neurological exam: Present: CN II-XII intact, oriented X3, no focal deficits. Absent: facial droop, speech deficit - Skin Skin exam: Present: dry, intact
--- NOTE | 2017-06-24 16:03 | Electrocardiograph Report ---
[place] [id number] Test Date: 2017-06-23 Pat Name: Savanna Haddad Department: 103 Room: [facility] Gender: F Auricular Acupuncturist: TASH : 1955 Requested By: Temi Sánchez Order Number: [id number] Reading MD: Chastity Raymundo Measurements Intervals [place] Rate: 87 P: 54 TX: 140 QRS: -14 QRSD: 92 T: 54 QT: 304 QTc: 348 Interpretive Statements SINUS RHYTHM NONSPECIFIC T-WAVE ABNORMALITY Electronically Signed On 06-24-2017 16:02:07 EST by Chastity Raymundo
[2017-06-24] MEDS ORDERED: Furosemide 40 MG/4 ML VIAL IVP SCH (17:00)
[2017-06-24 17:24] VITALS: BP 110/65
--- NOTE | 2017-06-24 17:27 | Nephrology Consult Note ---
Date of Encounter: 06/24/17 Time of Encounter: 11:30 Assessment and Plan (1) ESRD (end stage renal disease) on dialysis Current Visit: Yes Status: Chronic Will proceed with HD today with 3k bath and UF goal of 2-3kg as tolerated Renal diet advised Fluid restriction advised Phos binders per regimen History of Present Illness - Reason for Consult Consult date: 06/24/17 end stage renal disease Requesting physician: Gagan Cortes - History of Present Illness 62 y o female with PMH of ESRD on HD M-W-, HTN and asthma admitted with several days of malaise and respiratory symptoms. Renal consulted for management of her ESRD as today was her HD day. Pt seen and examined reports feeling a little better. No chest pain. No SOB. No fevers/chills noted. CXR showed some congestion. Past Med Surg Social Fam HX - Past Medical History Medical history: arthritis, asthma, cancer, diabetes, GERD, hyperlipidemia, hypertension, renal disease Psychiatric history: anxiety, depression - Past Surgical History Surgical History: appendectomy, cholecystectomy, hysterectomy, thyroidectomy - Social History Smoking Status: Former smoker Smokeless Tobacco Status: No Alcohol use: none Drug use: none - Family History Sister Hx Family Cancer: Yes (Breast) Brother Hx Family Cardiac Disorders: Yes Hx Family Endocrine Disorder: Yes Father Family Member Ethnicity: Non- Living Status: Mother Family Member Ethnicity: Non- Living Status: Hx Family Cardiac Disorders: Yes (Non-Hodgkins lymphoma) Medications and Allergies Albuterol Sulfate [Ventolin Hfa] 2 puff IH Q6H PRN 11/10/16 [History] Cetirizine HCl 10 mg PO DAILY 11/10/16 [History] Fluticasone Propionate Nasal [Flonase] 2 spr NS DAILY 11/10/16 [History] Insulin ASPART [Novolog Flexpen] 23 - 35 unit SQ TID 11/10/16 [History] Insulin Glargine,Hum.rec.anlog [Lantus Solostar] 40 unit SQ BID 11/10/16 [ History] Levothyroxine [Synthroid] 150 mcg PO DAILY 11/10/16 [History] Rosuvastatin [Crestor] 40 mg PO DAILY 11/10/16 [History] Sertraline [Zoloft] 100 mg PO DAILY 11/10/16 [History] Tiotropium [Spiriva] 18 mcg IH DAILY 11/10/16 [History] Buspirone HCl [Buspar] 7.5 mg PO BID 12/07/16 [History] Ergocalciferol (VITAMIN D2) [Vitamin D2] 50,000 unit PO QWEEK 12/07/16 [History] Mometasone/Formoterol [Dulera 200 Mcg/5 Mcg Inhaler] 2 puff IH BID 12/07/16 [ History] Omeprazole [PriLOSEC] 40 mg PO DAILY 12/07/16 [History] Calcium Carbonate [Tums] 1,000 mg PO BID #60 tab.chew 12/18/16 [Rx] Amitriptyline [Elavil] 50 mg PO HS 06/23/17 [History] Calcium Acetate [Phos-LO] 667 mg PO TIDWM 06/23/17 [History] Carvedilol [Coreg] 25 mg PO BID 06/23/17 [History] Furosemide [Lasix] 40 mg PO DAILY 06/23/17 [History] Azithromycin [Azithromycin 6-Tab Pack] 250 mg PO PER PKG DI #6 tab 06/24/17 [Rx] GuaiFENesin Liq [Robitussin Liq] 200 mg PO Q6HR #200 mls 06/24/17 [Rx] 3 Allergy/AdvReac Type Severity Reaction Status Date / Time aspirin Allergy Hives Verified 06/23/17 16:23 Sulfa (Sulfonamide Allergy Hives Verified 06/23/17 16:23 Antibiotics) Review of Systems All Systems: reviewed and no additional remarkable complaints except as stated ( 10 systems reviewed) Exam - Vital Signs Vital signs: Initial Vital Signs Temp Pulse Resp BP Pulse Ox 98.1 F 92 20 127/78 94 06/23/17 16:23 06/23/17 16:23 06/23/17 16:23 06/23/17 16:23 06/23/17 16:23 Vital Signs - Last 8 Hours Temp Pulse Resp BP Pulse Ox 06/24/17 17:20 97.6 F 61 16 110/65 97 06/24/17 17:15 97.3 F L 18 114/62 06/24/17 16:30 94/58 06/24/17 16:15 96/66 12/13/17 16:00 100/60 06/24/17 15:45 90/56 06/24/17 15:30 90/48 06/24/17 15:15 90/49 06/24/17 15:00 90/48 06/24/17 14:45 90/54 06/24/17 14:30 98/58 06/24/17 14:15 91/55 06/24/17 14:00 92/55 06/24/17 13:45 96/56 06/24/17 13:30 100/56 06/24/17 13:15 108/64 06/24/17 13:00 97.8 F 18 109/54 06/24/17 11:29 97.4 F L 68 16 129/67 100 06/24/17 11:24 18 95 Intake and Output 06/24/17 06/24/17 06/24/17 07:59 15:59 23:59 Intake Total 800 / 800 960 / 960 Output Total 100 / 100 200 / 200 3600 / 3600 Balance 700 / 700 760 / 760 -3600 / -3600 Intake: Oral 800 / 800 360 / 360 Intake, Rinseback and Flushes 600 / 600 Output: Urine 100 / 100 200 / 200 0 / 0 Total Dialysis (HD) Output 3600 / 3600 Other: Meal Lunch Percent of Meal Consumed 100% Stool Size Moderate Stool Consistency liquid Stool Color Brown Weight 87.2 kg Blood Glucose* 251 377 88 Hemodialysis Net Fluid Removed 2804 3000 (mL) Patient Weight 06/24/17 23:59 Weight 87.2 kg - General Appearance General appearance: well-developed, well-nourished EENT: ATNC, mucous membranes moist Neck: no JVD, supple Cardiology: no edema, normal S1, normal S2 - Dialysis Access Dialysis Vascular Access: Arteriovenous Fistula thrill: Yes bruit: Yes Additional Comments: Permcath also in place Gastrointestinal: no tenderness, no guarding Integumentary: warm and dry Neurologic: no focal deficit Musculoskeletal: no deformities Psychiatric: mood/affect appropriate, cooperative Results - Lab Results 06/24/17 03:26 06/24/17 03:26 Most recent lab results Calcium 8.3 mg/dL (8.6-10.8) L 06/24/17 03:26 Magnesium 2.0 mg/dL (1.6-2.6) 06/24/17 03:26 Consult Discharge Plan - Plan Referrals: Brie Ricks DO [Primary Care Provider] - 06/30/17 1:15 pm (in 1 week) Prescriptions: GuaiFENesin Liq [Robitussin Liq] 200 mg PO Q6HR #200 mls Azithromycin [Azithromycin 6-Tab Pack] 250 mg PO PER PKG DI #6 tab
[2017-06-24] MEDS ORDERED: Insulin LISPRO 300 UNITS/3 ML VIAL SQ SCH (21:00)
== END 2017-06-24 18:49 | disposition home or self-care (01) ==
LOC: EMEROO 16:21 → 2NENU 16:21 → SUATTDRO 17:51 → 2NENU 18:36
PROVIDERS: ADMIT Internal Medicine; ATTEND Internal Medicine